=== PATIENT | male | born 1945 | race Caucasian/White ===

== ENCOUNTER 2018-05-25 08:46 | Inpatient (IN) | payer MEDICARE ==
--- NOTE | 2018-05-25 09:09 | ED ---
Shortness of Breath - HPI Summary HPI Summary: This pt is a 73 y/o male presenting to [facility] c/o SOB worsening since 3 days ago. reports the pt has been on multiple antibiotics since February 2018 for SOB, including Azithromycin, Doxycycline, and Bactrim. states pt was initially on antibiotics for bronchitis, then for sinus infection, and also for pneumonia. Pt reports he ran out of his antibiotics 1 week ago and finished his Prednisone 4 days ago. notes they have recently flown back from the [place] 3 days ago. Pt denies chest pain, fever, chills. PMHx: RA, HTN, BPH. His medications include Hydroxyzine, Metoprolol, Finasteride , Lisinopril. No hx of COPD. Pt is a former smoker, quit in 1990. - History of Current Complaint Chief Complaint: EDShortnessOfBreath Hx Obtained From: Patient, Family/Commercial [employer] - Onset/Duration: Lasting Days, Still Present Timing: Constant Current Severity: Moderate Dyspnea At: Rest Aggrevating Factors: Nothing Alleviating Factors: Oxygen Associated Signs & Symptoms: Negative - Allergy/Home Medications Allergies/Adverse Reactions: Allergies Allergy/AdvReac Type Severity Reaction Status Date / Time Penicillins Allergy Hives/Diff. Verified 05/25/18 08:55 Breathing/I tching PMH/Surg Hx/FS Hx/Imm Hx Endocrine/Hematology History: Denies: Hx Diabetes, Hx Thyroid Disease Cardiovascular History: Reports: Hx Hypertension Respiratory History: Denies: Hx Asthma, Hx Chronic Obstructive Pulmonary Disease (COPD) GI History: Denies: Hx Ulcer History: Reports: Hx Benign Prostatic Hyperplasia Musculoskeletal History: Reports: Hx Rheumatoid Arthritis - Surgical History Surgery Procedure, Year, and Place: Appendectomy. Pacer Infectious Disease History: No Infectious Disease History: Denies: Hx Hepatitis, Hx Human Immunodeficiency Virus (HIV), Traveled Outside the [place] in Last 30 Days - Family History Known Family History: Positive: Cardiac Disease - Social History Alcohol Use: Occasionally Substance Use Type: Reports: None Smoking Status (MU): Former Smoker Review of Systems Negative: Fever, Chills Negative: Chest Pain Positive: Shortness Of Breath Negative: Vomiting, Nausea All Other Systems Reviewed And Are Negative: Yes Physical Exam - Summary Physical Exam Summary: VITAL SIGNS: Reviewed. GENERAL: Patient is a well-developed and thin male who is noticeably short of breath. He is not able to speak in full sentences. HEAD AND FACE: Normocephalic EYES: PERRLA, EOMI x 2. EARS: Hearing grossly intact. MOUTH: Oropharynx within normal limits. NECK: Supple, trachea is midline, no adenopathy, no JVD, no carotid bruit. CHEST: Symmetric, no tenderness at palpation LUNGS: Clear to auscultation bilaterally. No wheezing or crackles. Patient is note able to speak in full sentences. CVS: Regular rate and rhythm, S1 and S2 present, no murmurs or gallops appreciated. ABDOMEN: Soft, non-tender. Bowel sounds are normal. No abdominal abnormal pulsations. EXTREMITIES: Full ROM in all major joints, no edema, no cyanosis or clubbing. NEURO: Alert and oriented x 3. No acute neurological deficits. Speech is normal and follows commands. SKIN: Dry and warm Triage Information Reviewed: Yes Vital Signs On Initial Exam: Initial Vitals Temp Pulse Resp BP Pulse Ox 98.2 F 62 22 132/62 89 05/25/18 08:50 05/25/18 08:50 05/25/18 08:50 05/25/18 08:50 05/25/18 08:50 Vital Signs Reviewed: Yes Diagnostics - Vital Signs Vital Signs Temp Pulse Resp BP Pulse Ox 05/25/18 08:50 98.2 F 62 22 132/62 89 - Laboratory Result Diagrams: 05/25/18 09:11 05/25/18 09:11 Lab Statement: Any lab studies that have been ordered have been reviewed, and results considered in the medical decision making process. - Radiology Chest XR Radiology Interpretation Completed By: Radiologist Summary of Radiographic Findings: IMPRESSION: Suggestion of a spiculated mass in the right upper lobe. This is new since previous exam of January 17, [address] of the chest is suggested for further evaluation. Chronic pleural changes are noted. Dr. Jeffers has reviewed this report. - CT Chest CTA CT Interpretation Completed By: Radiologist Summary of CT Findings: IMPRESSION: 1. No CT of evidence of pulmonary embolism. 2. There is a large denstiy in the lateral aspect of the right lower lobe measuring up to 3.6 x 7.9 cm in the axial plane in addition to multiple pulmonary nodules scattered throughout both lungs. Differential diagnosis includes neoplasm, inflammatory lung disease or multifocal septic emboli. Dr. Jeffers has reviewed this report. Dr. Jeffers has reviewed this report. - EKG 09:11 Cardiac Rate: NL - at 68 bpm EKG Comparison: No Significant Change - Similar to prior EKG on 01/22/09. Summary of EKG Findings: Atrial paced at [address] elevations. Re-Evaluation - Re-Evaluation First Eval Re-Evaluation Time: 11:11 Comment: Reviewed lab, CXR, and CTA results with pt and . Discussed admission plan. They understand and agree. Course/Dx - Course Assessment/Plan: This pt is a 73 y/o male presenting to [facility] c/o SOB worsening since 3 days ago. reports the pt has been on multiple antibiotics since February 2018 for SOB, including Azithromycin, Doxycycline, and Bactrim. states pt was initially on antibiotics for bronchitis, then for sinus infection , and also for pneumonia. Pt reports he ran out of his antibiotics 1 week ago and finished his Prednisone 4 days ago. notes they have recently flown back from the [place] 3 days ago. Pt denies chest pain, fever, chills. PMHx : RA, HTN, BPH. His medications include Hydroxyzine, Metoprolol, Finasteride, Lisinopril. No hx of COPD. Pt is a former smoker, quit in 1990. Blood work shows a wbcs of 9.7, hemoglobin 9.7 hematocrit of 29 and platelets are 150. The d-dimer is more than 1050. I suspect a PE since the patient had a recent flight from [place]. I did order a chest CTA. Anion gap is 8 to BUN is 49, troponin 0.19, CRP is 169, BNP is 243 influenza A and B is negative. CXR IMPRESSION: Suggestion of a spiculated mass in the right upper lobe. This is new since previous exam of January 17, [address] of the chest is suggested for further evaluation. Chronic pleural changes are noted. CTA chest IMPRESSION : 1. No CT of evidence of pulmonary embolism. 2. There is a large density in the lateral aspect of the right lower lobe measuring up to 3.6 x 7.9 cm in the axial plane in addition to multiple pulmonary nodules scattered throughout both lungs. Differential diagnosis includes neoplasm, inflammatory lung disease or multifocal septic emboli. At this time I discussed my physical exam, findings and test results with Dr. Jaramillo from the hospitalist services who accepted the patient for admission. - Diagnoses Provider Diagnoses: Dyspnea, Lung nodules, Elevated troponin - Physician Notifications Discussed Care of Patient With: Dariela Choi Time Discussed With Above Provider: 09:42 Instructed by Provider To: Other - Dr. Choi, radiologist, reports chest XR results. [11:18] Discussed the case with Dr. Jaramillo, hospitalist, who accepted the pt for admission. Discharge - Sign-Out/Discharge Documenting (check all that apply): Patient Departure - Admit to [facility] Patient Received Moderate/Deep Sedation with Procedure: No - Discharge Plan Condition: Stable Disposition: ADMITTED TO [facility] - Billing Disposition and Condition Condition: STABLE Disposition: Admitted to [facility] - Attestation Statements Document Initiated by Maru: Yes Documenting Scribe: January Cortes Provider For Whom Maru is Documenting (Include Credential): Mohit Jeffers MD Scribe Attestation: January Ferrer, scribed for Mohit Jeffers MD on 05/25/18 at 1838. Scribe Documentation Reviewed: Yes Provider Attestation: The documentation as recorded by the January bob accurately reflects the service I personally performed and the decisions made by Mohit pettit MD Status of Scribe Document: Viewed
[2018-05-25 09:25] LABS: ABS Basophils 0.1 10^3/ul (0-0.2); ABS Eosinophils 0.5 10^3/ul (0-0.6); ABS Lymphocytes 0.4 10^3/ul (1.0-4.8); ABS Monocytes 0.5 10^3/ul (0-0.8); ABS Neutrophils 8.2 10^3/ul (1.5-7.7); ABS Nucleated RBC 0 10^3/ul; Eosinophil % 5.3 %; Hematocrit 29 % (36-46); Hemoglobin 9.7 g/dL (14.0-18.0); Lymphocyte % 3.7 %; Mean Corpuscular HGB Conc 34 g/dL (31-36); Mean Corpuscular Hemoglobin 28 pg (27-31); Mean Corpuscular Volume 83 fL (80-94); Mean Platelet Volume 6.3 fL (7.4-10.4); Nucleated Red Blood Cells % 0; Platelet Count 150 10^3/uL (150-450); Red Blood Count 3.48 10^6 /uL (4.18-5.48); Red Cell Distribution Width 17 % (10.5-15); White Blood Count 9.7 10^3/uL (3.5-10.8)
[2018-05-25 09:41] LABS: Activated Partial Thrombo Time 25.1 seconds (26.0-36.3)
[2018-05-25 09:49] LABS: CKMB ng/mL 3.4 ng/mL (0.6-6.3); Troponin I 0.19 ng/mL (<0.04)
[2018-05-25 09:50] LABS: Albumin 2.7 g/dL (3.2-5.2); Albumin/Globulin Ratio 0.9 (1-3); BUN/Creatinine Ratio 23.3 (8-20); C Reactive Protein 169.3 mg/L (<8.01); Calcium 8.9 mg/dL (8.6-10.3); EGFR African American 37.6 (>60); EGFR Non-African American 31.1 (>60); Potassium 4.2 mmol/L (3.5-5.0); Total Protein 5.7 g/dL (6.4-8.9)
[2018-05-25 09:53] LABS: Influenza A Molecular NEGATIVE (Negative); Influenza B Molecular NEGATIVE (Negative)
[2018-05-25] MEDS ORDERED: Iodixanol* (CONTRAST) 320 MG/ML 100 ML SDV IV ONE (09:59)
[2018-05-25] MEDS ORDERED: NS 0.9% 1000 ML** 1,000 ML IV ONE (11:20)
[2018-05-25] MEDS ORDERED: methylPREDNISolone 125 MG* 2 ML VIAL IV ONE (12:28)
[2018-05-25] MEDS ORDERED: Albuterol/Ipratropium NEB.SOL* Albuterol 2.5 MG/Ipratropium 0.5 MG 3 ML INH PRN (12:30)
[2018-05-25] MEDS ORDERED: Acetaminophen TAB* 325 MG PO PRN (12:30)
[2018-05-25] MEDS ORDERED: Ondansetron INJ* 2 MG/ML VIAL IV PRN (12:30)
[2018-05-25 13:03] LABS: Troponin I 0.17 ng/mL (<0.04)
[2018-05-25 13:59] LABS: Urine Appearance Cloudy; Urine Bacteria Absent (Absent); Urine Bilirubin Negative (Negative); Urine Blood 2+ (Negative); Urine Color Yellow; Urine Glucose Negative (Negative); Urine Ketones Negative (Negative); Urine Nitrite Negative (Negative); Urine Protein Negative (Negative); Urine Red Blood Cell 2+(6-10/hpf) (Absent); Urine Specific Gravity 1.023 (1.010-1.030); Urine Squamous Epithelial Cell Present (Absent); Urine Urobilinogen Negative (Negative); Urine White Blood Cell 2+(11-20/hpf) (Absent)
--- NOTE | 2018-05-25 14:25 | HP ---
ADMISSION HISTORY AND PHYSICAL: DATE OF ADMISSION: 05/25/18. PRIMARY CARE PROVIDER: Tracy Dugan at the [facility]. HEALTHCARE PROXY: His . CODE STATUS: Full. SOURCE OF INFORMATION: History obtained from interview with the patient and his , review of past medical records. RELIABILITY: Very good. CHIEF COMPLAINT: Shortness of breath. HISTORY OF PRESENT ILLNESS: This 73-year-old man last time when normal was approximately January 2018, when he started to develop increased trouble breathing described as dyspnea on exertion with ambulation. At baseline, he could ambulate several miles, unlimited exercise tolerance. However, gradually started to increase dyspnea on exertion. He was in [place] at that time, he was diagnosed with sinusitis at a walk-in clinic, started on antibiotics, however, returned after 5 days with no improvement, prescribed a different antibiotic and steroids. He did experience some improvement with the steroids, however, after the completion, he again started to feel short of breath with exertion. The same pattern occurred over the ensuing 4 months, he received 4 courses of antibiotics and steroids and would have improvement with the combination and worsened with the discontinuation of the steroids ultimately to where his exercise tolerance became where he was able to ambulate a quarter to half a mile at baseline. In April, he saw his PCP after returning from [place] , was again prescribed antibiotics and prednisone for 10 days for a trip to the [place] and [place]. While there on a higher dose of steroids and antibiotics, he was able to ambulate for 2 or 3 hours per day, felt much improved. His appetite was good, however, 4 days to presentation when he returned, his steroid after his antibiotics and he gradually experienced worsening in his breathing and where he is now short of breath at rest. His T-max was 100 yesterday associated with aches and pains, poor appetite for approximately 1 month with nothing tasting good. Additionally over the last 3 to 4 days, he has had a hoarse voice. He has noted a headache over approximately 10 days which is new for him. He has never been a gentleman with the headaches. He has had occasional congestion and diarrhea which is chronic, but has been more severe over the last 3 weeks. He endorses night sweats that have been drenching for 3 weeks as well as weight loss approximately 5 to 6 pounds. Endorses a weight of 150 pounds in January. Because of increasing shortness of breath, no improvement and worsening to now dyspnea at rest, he presented to the emergency room. PAST MEDICAL HISTORY: Includes BPH, GERD, hypertension, rheumatoid arthritis for 25 years, erectile dysfunction, hyperlipidemia. He has had appendectomy, tonsillectomy, and he had a permanent pacemaker placed for recurrent same thing. MEDICATIONS: Home medications reviewed in the patient's list include: 1. Flomax 0.4 mg daily. 2. Omeprazole 20 mg daily. 3. Metoprolol succinate 25 mg daily. 4. Plaquenil 200 mg twice daily. 5. Avodart 0.5 mg daily. 6. Diclofenac 75 mg twice daily. ALLERGIES: To PENICILLIN. FAMILY HISTORY: Positive for CAD. SOCIAL HISTORY: He smoked for 20 years up to 2 packs per day, quit 30 years prior. Drinks approximately 2 drinks per week. 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 REVIEW OF SYSTEMS: As outlined above, otherwise all other systems negative. PHYSICAL EXAMINATION GENERAL: This 73-year-old male sitting up in bed, he is short of breath during our conversation. VITAL SIGNS: Vitals in emergency room blood pressure 124/76, heart rate 63, respiratory rate peaked at 22, 15 and it is minimum, he is 100% on 2 liters, T- max 98.2. HEENT: His oropharynx is clear. He has moist mucous membranes. Sclerae are anicteric. NECK: He has no supraclavicular, cervical or axillary lymphadenopathy. LUNGS: His lungs have rales in his right base up to approximately one-half. HEART: He has regular rate and rhythm. No murmurs, rubs or gallops. ABDOMEN: Soft, nontender, nondistended. EXTREMITIES: Warm and well perfused. He has less than 2-second capillary refill. NEURO: He is alert and oriented x3. His cranial nerves II through XII are intact. He has no apparent anxiety, agitation or depression. DIAGNOSTIC STUDIES/LAB DATA: Labs reviewed, notable for hemoglobin 9.7, MCV of 83, D-dimer greater than 1000, BUN 49, creatinine 2.1, troponin-I 0.19, CRP is 169, BNP is 243. Negative influenza A and B. Data reviewed, chest CTA, impression: No CT evidence of pulmonary embolism, however, there is a large density in the lateral aspect of the right lower lobe measuring up to 3.6 x 7.9 cm in the axial plane in addition to multiple pulmonary nodules scattered throughout both lungs. Differential includes neoplasm, inflammatory lung disease, and multifocal septic emboli. EKG is atrial paced, [place] beats have no ST or T-wave changes. ASSESSMENT AND PLAN: This is a 73-year-old man with past medical history including tobacco use, who does now have 4 months of progressive dyspnea on exertion to now having shortness of breath at rest with some intermittent relief with antibiotics for most prominently with steroids, found with abnormal CAT scan, acute renal failure and elevated troponin. 1. Hypoxic respiratory failure: Unclear etiology, does include malignancy, rheumatoid lung, septic emboli being less likely in the setting of no evidence of infection. Long courses of antibiotics for the last 4 months and improvement with steroids. Reach out to Dr. Thorpe to investigate opportunity to biopsy one of the lung nodules. I have also placed consultation for Dr. Kelly. Inhalers p.r.n., while awake for shortness of breath. Steroids for underlying inflammatory disorder if found appropriate, can recheck with Dr. Kelley for further assistance. 2. Elevated troponin: Check transthoracic echocardiogram, to continue troponin , serial EKG, start aspirin, suspect demand ischemia in the setting of underlying pulmonary source as well as decreased renal function. 3. Acute kidney injury in the setting of decreased p.o. intake. Fluids as given by the ER, continue. Order for additional 2 liters. 4. Contrast in the setting of renal failure, continue fluids as indicated above. The patient did receive contrast load, his clearance is around 30. 5. Headache in the setting of pulmonary nodules, check CT head. 6. Hypertension. Continue home medication. 7. Benign prostatic hypertrophy. Continue home medications. 8. DVT prophylaxis, heparin subcu ,transition to Lovenox when able, however, heparin in case he is capable of receiving a lung biopsy. [id number]/[facility] #: [id number] [facility]
--- NOTE | 2018-05-25 16:05 | ECHO ---
Patient: SRINIVASAN JC [facility] Rec#: [id number] : 1945 Date: 05/25/2018 Age: 73y Height: 170.18 cm / 67.0 in Weight: 77.11 kg / 170.0 lbs Sex: M BSA: 1.89 Room#: -19 Admit Date#: 05/25/2018 Type: Inpatient Referring: Derrell Jaramillo MD Reading: Alejandro Renner MD Housing Liaison: Marsha Dimas RDCS CC: ASHLEY TAMAYO CC: Mike Chambers MD Transthoracic Echocardiogram Indication: Shortness of breath BP: 124/76 HR: 70 Rhythm: Paced Findings History: RA, HTN, former smoker, HLD, pacer. Technical Comments: The study quality is fair. Completed at 1545. Left Ventricle: The left ventricular chamber size is mildly dilated. There is no left ventricular hypertrophy. Global left ventricular wall motion and contractility are within normal limits. Left ventricular systolic function is at the lower limits of normal. The estimated ejection fraction is 50-55%. There is abnormal ventricular septal wall motion consistent with right ventricular pacemaker. Abnormal left ventricular diastolic function is observed. Abnormal left ventricular diastolic filling is observed, consistent with impaired relaxation. Left Atrium: The left atrium is moderately dilated. Right Ventricle: Moderator Band present. The right ventricle is mildly dilated. The right ventricular global systolic function is normal. A pacemaker wire is visualized in the right ventricle. Right Atrium: The right atrium is mildly dilated. A pacemaker wire is visualized in the right atrium. Aortic Valve: The aortic valve is trileaflet. The aortic valve leaflets are mildly thickened. There is a trace of aortic regurgitation. There is no evidence of aortic stenosis. Mitral Valve: There is mitral annular calcification. The mitral valve leaflets are mildly thickened. There is mild to moderate mitral regurgitation. There is no evidence of mitral stenosis. Tricuspid Valve: The tricuspid valve leaflets are normal. There is mild to moderate tricuspid regurgitation. The right ventricular systolic pressure is estimated at 34 mmHg. There is evidence of borderline pulmonary hypertension. There is no tricuspid stenosis. Pulmonic Valve: The pulmonic valve appears normal. There is a trace pulmonic regurgitation. There is no pulmonic stenosis. Pericardium: There is no significant pericardial effusion. A pericardial fat pad is visualized. Aorta: There is no dilatation of the ascending aorta. There is no dilatation of the aortic arch. The aortic root is normal in size. Pulmonary Artery: The main pulmonary artery appears normal. Venous: The inferior vena cava appears normal in size. There is a greater than 50% respiratory change in the inferior vena cava dimension. Summary: There was not any prior study for comparison. Conclusions There is no left ventricular hypertrophy. Left ventricular systolic function is at the lower limits of normal. The estimated ejection fraction is 50-55%. There is abnormal ventricular septal wall motion consistent with right ventricular pacemaker. A pacemaker wire is visualized in the right ventricle. There is a trace of aortic regurgitation. There is no evidence of aortic stenosis. There is mild to moderate mitral regurgitation. There is mild to moderate tricuspid regurgitation. There is evidence of borderline pulmonary hypertension. There is no significant pericardial effusion. Measurements Name Value Normal Range RVIDd (AP) 2D 3.5 cm (0.9 - 2.6) RVDdMajor (2D) 4.6 cm (2.2 - 4.4) RAd ISD 4CH 4.6 cm (3.4 - 4.9) RA (A4C)W 4.9 cm (2.9 - 4.6) IVSd (2D) 1 cm (0.6 - 1) LVPWd (2D) 0.8 cm (0.6 - 1) LVIDd (2D) 5.5 cm (3.6 - 5.4) LVIDs (2D) 3.5 cm - LV FS (2D) 36 % (25 - 45) Aortic Annulus 2.2 cm (1.4 - 2.6) Ao root diameter (2D) 3.3 cm (2.1 - 3.5) Ascending Ao 3.1 cm (2.1 - 3.4) Aortic arch 2.6 cm (1.8 - 3.4) LA dimension (AP) 2D 3.8 cm (2.3 - 3.8) LAd ISD 4CH 5.5 cm (2.9 - 5.3) LA ISD 4CH W 4 cm (2.5 - 4.5) Name Value Normal Range LA ESV SP 4CH (A/L) 74 ml - LA ESV SP 2CH (A/L) 82 ml - LA ESV BP (A/L) 79 ml - LA ESV BP (A/L) index 42 ml/m2 - LA ESV SP 4CH (MOD) 66 ml - LA ESV SP 2CH (MOD) 78 ml - Name Value Normal Range MV E-wave Vmax 0.9 m/sec - MV deceleration time 181 msec - MV A-wave Vmax 1.2 m/sec - MV E:A ratio 0.8 ratio - LV septal e' Vmax 0.07 m/sec - LV lateral e' Vmax 0.1 m/sec - LV E:e' septal ratio 12.9 ratio - LV E:e' lateral ratio 9 ratio - Name Value Normal Range AV Vmax 1.7 m/sec - AV VTI 34 cm - AV peak gradient 11 mmHg - AV mean gradient 5 mmHg - LVOT Vmax 1.1 m/sec - LVOT VTI 23 cm - LVOT peak gradient 4 mmHg - LVOT mean gradient 2 mmHg - JO-ANN Vmax 0.9 m/sec - Name Value Normal Range TR Vmax 2.8 m/sec - TR peak gradient 31 mmHg - RAP 3 mmHg - RVSP 34 mmHg - IVC diameter 1.9 cm - Name Value Normal Range PV Vmax 0.96 m/sec - PV peak gradient 3.77 mmHg -
[2018-05-25 16:28] LABS: Troponin I 0.16 ng/mL (<0.04)
[2018-05-25] MEDS: Heparin VIAL(*) 5000 UNITS/ML VIAL (FIVE THOUSAND) SUBCUT SCH ×2 (19:22→21:19)
[2018-05-25] MEDS: Hydroxychloroquine TAB* 200 MG PO SCH (21:18)
[2018-05-25] MEDS: NS 0.9% 1000 ML** 1,000 ML IV SCH (21:29)
--- NOTE | 2018-05-25 21:49 | CONS ---
PULMONARY CONSULTATION REPORT: DATE OF CONSULT: 05/25/18 CONSULTATION REQUESTED BY: Dr. Derrell Jaramillo. REASON FOR CONSULTATION: Evaluation of abnormal CT chest. HISTORY OF PRESENT ILLNESS: The patient is a 73-year-old male with a history of GERD, BPH, hypertension, and rheumatoid arthritis for 25 years. The patient is also a former smoker, smoked for 20 years 2 packs a day and quit 30 years prior. 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 The patient was travelling, was in [place] recently. The patient was evaluated by primary care physician 2 times in the past 2 months for shortness of breath issues. Initially, he was diagnosed with sinusitis and was treated with antibiotics and prednisone with improvement in symptoms. Once he was tapered off the prednisone, his symptoms would recur. The patient presents for evaluation of worsening shortness of breath. The patient reports once he got off of his prednisone, his shortness of breath has started. The patient reports no cough. He denies fevers or chills. He has been having some night sweats. The patient has long-standing history of rheumatoid arthritis, has been treated with Plaquenil. The patient reports history of pulmonary nodules and rheumatoid activity in his lungs. The patient did not ever had biopsy of the pulmonary nodules. The patient also reports some arthritis symptoms recently. The patient has been tapered off a 10 -day course of prednisone last with return of symptoms. The patient was given nebulizers in the emergency room and was given a dose of steroid. The patient reports improvement in shortness of breath currently. The patient also reports headaches recently. He also reported occasional constipation and alternate diarrhea, which is chronic and has been more severe over the past 3 weeks. He has been having night sweats with drenching sweats in the 3 weeks prior with 5- to 6-pound weight loss. The patient reports a good appetite. The patient was travelling recently and was in [place] and [place] recently. He was found to have a T-max of 100 yesterday associated with aches and pains and poor appetite for a month that has improved in the past 4 days. The patient also reports hoarseness of voice. Denies any sinus issues in the past. PAST MEDICAL HISTORY: 1. BPH. 2. GERD. 3. Hypertension. 4. Rheumatoid arthritis for 25 years. 5. Erectile dysfunction. 6. Dyslipidemia. PAST SURGICAL HISTORY: Appendectomy, tonsillectomy, and pacemaker placement. MEDICATIONS: 1. Flomax. 2. Omeprazole. 3. Metoprolol. 4. Plaquenil. 5. Avodart. 6. Diclofenac. ALLERGIES: PENICILLIN. FAMILY HISTORY: CAD. SOCIAL HISTORY: Smoked for 20 years 2 packs per day, quit 30 years prior. Drinks 2 drinks per day. 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 REVIEW OF SYSTEMS: All systems reviewed as per HPI. PHYSICAL EXAM: The patient in bed, in no apparent distress. O2 sat 100% on 2 L of O2 through nasal cannula. He does appear to have hoarseness of voice and obvious dyspnea with long sentences. Vital Signs: Temperature 98.7, pulse 64 beats per minute, respiratory rate 15 per minute, O2 sat 94% on room air, blood pressure 122/69. HEENT: Pupils equal and reactive to light. Mucous membranes moist. Lungs: Diminished air entry bilaterally. No crackles or wheezes. Cardiovascular: S1, S2 present. Rate irregular. Abdomen: Soft, nontender, and nondistended. Bowel sounds present. Extremities: Normal range of motion. Skin : No rash or bruises. Neurologic: Alert, awake, oriented x3. No focal deficits. DIAGNOSTIC STUDIES/LAB DATA: WBC count 9.7, hemoglobin 9.7, hematocrit 29; platelet count of 150 with increased neutrophils. Sodium 137, potassium 4.2, chloride 108, bicarb 21, BUN 49, creatinine 2.1. The patient with chronic renal insufficiency. Last creatinine from June of 2017 was 1.20. His BUN in June was 34. BMP elevated at 243. Troponins were elevated and trending down. Lactic acid within normal limits. Rheumatoid factor elevated at 16. Last rheumatoid factor from 2013 was less than 15. Influenza A and B negative. Chest x-ray did not reveal any abnormalities in the left lung. Evidence of spiculated mass in the right lung. CT as described above in HPI. Abdominal and bladder ultrasound showed medical renal disease without any hydronephrosis, large bladder diverticulum and large post-void residual seen. Brain CT showed no acute abnormalities, mucosal thickening throughout the paranasal sinuses, and thickening in the hawk of maxillary sinus suggestive of possible chronic sinusitis. IMPRESSION AND RECOMMENDATIONS: 73-year-old male former smoker with history of long-standing rheumatoid arthritis admitted with worsening shortness of breath. The patient has been having episodes of recurrent shortness of breath recently. He does not have history of sinusitis in the past. He has been having sinus issues, which were treated with 3 courses of antibiotics. His symptoms would improve with antibiotics and prednisone, would recur again. He has been describing some chills, night sweats recently. The patient with airspace opacities and nodular opacities mostly in the right lung, also seen in the left lung. Prior CTs few years ago did not reveal those abnormalities. Differentials include rheumatoid activation in the lungs. I also have suspicion for possible Luna's given nodular opacities, sinusitis with chronic sinus changes and noted on the CT scan, and renal failure. The patient with significant improvement with prednisone definitely pointing towards possible inflammatory etiology. Less likely to be malignancy. He was already started on prednisone. If it is rheumatoid, it would improve, but if it is ANCA associated vasculitis, probably would need higher dose of steroids or immunosuppressive therapy with probably rituximab in the future. I have ordered ANCA and ALTON levels. Rheumatoid level mildly elevated. The patient with recent travel infectious etiology also in the differential, even though CT findings might not be indicative of that. He is on hydroxychloroquine, not on any other significant immuno-suppressive therapy at this time that I could be worrying about opportunistic infection. Definitely inflammatory etiology can explain the weight loss, night sweats, etc. In either ways, biopsy would be helpful. Would watch his clinical improvement and then may be repeated a chest x-ray in a day or two while awaiting biopsy to be scheduled and if the chest x- ray does suggest that there is improvement, then biopsy can be awaited on and followup scan would be done. Would also recommend consultation with Dr. Kelley. Thank you for allowing me to participate in the care of your patient. Will follow up with you. [id number]/[facility] #: [id number] ESTEPHANIE
[2018-05-26] MEDS: methylPREDNISolone SOD 40 MG* 1 ML VIAL IV SCH ×3 (05:59→22:53)
[2018-05-26] MEDS: NS 0.9% 1000 ML** 1,000 ML IV SCH (05:59)
[2018-05-26] MEDS: Heparin VIAL(*) 5000 UNITS/ML VIAL (FIVE THOUSAND) SUBCUT SCH ×3 (06:02→20:26)
[2018-05-26 08:02] LABS: ABS Basophils 0 10^3/ul (0-0.2); ABS Eosinophils 0 10^3/ul (0-0.6); ABS Lymphocytes 0.4 10^3/ul (1.0-4.8); ABS Monocytes 0.1 10^3/ul (0-0.8); ABS Neutrophils 10.9 10^3/ul (1.5-7.7); ABS Nucleated RBC 0 10^3/ul; Eosinophil % 0 %; Hematocrit 26 % (36-46); Hemoglobin 8.9 g/dL (14.0-18.0); Lymphocyte % 3.7 %; Mean Corpuscular HGB Conc 34 g/dL (31-36); Mean Corpuscular Hemoglobin 28 pg (27-31); Mean Corpuscular Volume 83 fL (80-94); Mean Platelet Volume 7.1 fL (7.4-10.4); Nucleated Red Blood Cells % 0; Platelet Count 141 10^3/uL (150-450); Red Blood Count 3.17 10^6 /uL (4.18-5.48); Red Cell Distribution Width 17 % (10.5-15); White Blood Count 11.5 10^3/uL (3.5-10.8)
[2018-05-26 08:18] LABS: BUN/Creatinine Ratio 24.3 (8-20); Calcium 8.3 mg/dL (8.6-10.3); EGFR African American 34.6 (>60); EGFR Non-African American 28.6 (>60); Magnesium 1.5 mg/dL (1.9-2.7); Potassium 4.2 mmol/L (3.5-5.0)
--- NOTE | 2018-05-26 08:31 | PN ---
Progress Note - Progress Note Date of Service: 05/26/18 - Pulm f/u note Note: Pt seen and examined at bedside. Pt reports feeling slightly better. He still feels winded with talking. Denies cough or sputum production. Denies chest pain , palpitations. Active Medications Generic Name Dose Route Start Last Admin Trade Name Freq PRN Reason Stop Dose Admin Acetaminophen 650 mg 05/25/18 12:30 Tylenol Tab* PO Q4H PRN FEVER/PAIN Albuterol/Ipratropium 1 neb 05/25/18 12:30 Duoneb (Albuterol 2.5 Mg/Ipratropium 0.5 Mg) INH [id number] AWAKE PRN sob/wheexing Aspirin 81 mg 05/26/18 09:00 Aspirin 81 Mg Chew Tab* PO DAILY MARTI Finasteride 5 mg 05/26/18 09:00 Proscar Tab* PO DAILY [facility] Protocol Heparin Sodium (Porcine) 5,000 units 05/25/18 14:00 05/26/18 06:02 Heparin Vial(*) SUBCUT 5,000 units Q8HR MARTI Administration Hydroxychloroquine Sulfate 200 mg 05/25/18 21:00 05/25/18 21:18 Plaquenil Tab* PO 200 mg BID MARTI Administration Sodium Chloride 1,000 mls @ 150 mls/hr 05/25/18 12:30 05/26/18 05:59 Ns 0.9% 1000 Ml IV 05/26/18 19:09 150 mls/hr PER RATE MARTI Administration Methylprednisolone Sodium Succinate 40 mg 05/26/18 07:00 05/26/18 05:59 Solu-Medrol 40 Mg IV 40 mg Q8H MARTI Administration Metoprolol Succinate 25 mg 05/26/18 09:00 Toprol Xl Tab* PO DAILY MARTI Ondansetron HCl 4 mg 05/25/18 12:30 Zofran Inj* IV Q4H PRN NAUSEA/VOMITING Pantoprazole Sodium 40 mg 05/26/18 09:00 Protonix Tab* PO DAILY MARTI Tamsulosin HCl 0.4 mg 05/26/18 09:00 Flomax Cap* PO DAILY [facility] Vital Signs Temp Pulse Resp BP Pulse Ox 97.3 F 56 16 123/56 100 05/26/18 07:09 05/26/18 07:09 05/26/18 07:09 05/26/18 07:09 05/26/18 07:09 O/E; Pt in NAD HEENT: PERRLA, no JVD Lungs: Dimnished air entry b/l, no wheeze CVS; S1, S2+ Abd: Soft, BS+ Ext: Normal ROM, no edema Skin: No rash Neuro: No focal deficits Laboratory Results - last 24 hr 05/25/18 05/25/18 05/25/18 09:03 09:11 09:11 WBC 9.7 RBC 3.48 L Hgb 9.7 L Hct 29 L MCV 83 MCH 28 MCHC 34 RDW 17 H Plt Count 150 MPV 6.3 L Neut % (Auto) 84.6 Lymph % (Auto) 3.7 [place] % (Auto) 5.4 Eos % (Auto) 5.3 Baso % (Auto) 1.0 Absolute Neuts (auto) 8.2 H Absolute Lymphs (auto) 0.4 L Absolute Monos (auto) 0.5 Absolute Eos (auto) 0.5 Absolute Basos (auto) 0.1 Absolute Nucleated RBC 0 Nucleated RBC % 0 APTT 25.1 L D-Dimer, Quantitative > 1050 H Sodium Potassium Chloride Carbon Dioxide Anion Gap BUN Creatinine Est GFR ( Amer) Est GFR (Non-Af Amer) BUN/Creatinine Ratio Glucose Lactic Acid Calcium Magnesium Total Bilirubin AST ALT Alkaline Phosphatase Total Creatine Kinase CK-MB (CK-2) Troponin I C-Reactive Protein B-Natriuretic Peptide Total Protein Albumin Globulin Albumin/Globulin Ratio Urine Color Yellow Urine Appearance Cloudy Urine pH 5.0 Ur Specific [place] 1.023 Urine Protein Negative Urine Ketones Negative Urine Blood 2+ A Urine Nitrate Negative Urine Bilirubin Negative Urine Urobilinogen Negative Ur Leukocyte Esterase 2+ A Urine WBC (Auto) 2+(11-20/hpf) A Urine RBC (Auto) 2+(6-10/hpf) A Ur Squamous Epith Cells Present A Urine Bacteria Absent Urine Glucose Negative Rheumatoid Factor Influenza A (Rapid) Influenza B (Rapid) 05/25/18 05/25/18 05/25/18 09:11 09:11 09:11 WBC RBC Hgb Hct MCV MCH MCHC RDW Plt Count MPV Neut % (Auto) Lymph % (Auto) [place] % (Auto) Eos % (Auto) Baso % (Auto) Absolute Neuts (auto) Absolute Lymphs (auto) Absolute Monos (auto) Absolute Eos (auto) Absolute Basos (auto) Absolute Nucleated RBC Nucleated RBC % APTT D-Dimer, Quantitative Sodium 137 Potassium 4.2 Chloride 108 Carbon Dioxide 21 L Anion Gap 8 BUN 49 H Creatinine 2.10 H Est GFR ( Amer) 37.6 Est GFR (Non-Af Amer) 31.1 BUN/Creatinine Ratio 23.3 H Glucose 112 H Lactic Acid 1.3 Calcium 8.9 Magnesium Total Bilirubin 1.00 AST 23 ALT 35 Alkaline Phosphatase 87 Total Creatine Kinase 55 CK-MB (CK-2) 3.4 Troponin I 0.19 H* C-Reactive Protein 169.30 H B-Natriuretic Peptide 243 H Total Protein 5.7 L Albumin 2.7 L Globulin 3.0 Albumin/Globulin Ratio 0.9 L Urine Color Urine Appearance Urine pH Ur Specific [place] Urine Protein Urine Ketones Urine Blood Urine Nitrate Urine Bilirubin Urine Urobilinogen Ur Leukocyte Esterase Urine WBC (Auto) Urine RBC (Auto) Ur Squamous Epith Cells Urine Bacteria Urine Glucose Rheumatoid Factor Influenza A (Rapid) Influenza B (Rapid) 05/25/18 05/25/18 05/25/18 09:40 12:34 15:55 WBC RBC Hgb Hct MCV MCH MCHC RDW Plt Count MPV Neut % (Auto) Lymph % (Auto) [place] % (Auto) Eos % (Auto) Baso % (Auto) Absolute Neuts (auto) Absolute Lymphs (auto) Absolute Monos (auto) Absolute Eos (auto) Absolute Basos (auto) Absolute Nucleated RBC Nucleated RBC % APTT D-Dimer, Quantitative Sodium Potassium Chloride Carbon Dioxide Anion Gap BUN Creatinine Est GFR ( Amer) Est GFR (Non-Af Amer) BUN/Creatinine Ratio Glucose Lactic Acid Calcium Magnesium Total Bilirubin AST ALT Alkaline Phosphatase Total Creatine Kinase CK-MB (CK-2) Troponin I 0.17 H* 0.16 H* C-Reactive Protein B-Natriuretic Peptide Total Protein Albumin Globulin Albumin/Globulin Ratio Urine Color Urine Appearance Urine pH Ur Specific [place] Urine Protein Urine Ketones Urine Blood Urine Nitrate Urine Bilirubin Urine Urobilinogen Ur Leukocyte Esterase Urine WBC (Auto) Urine RBC (Auto) Ur Squamous Epith Cells Urine Bacteria Urine Glucose Rheumatoid Factor Influenza A (Rapid) Negative Influenza B (Rapid) Negative 05/25/18 05/26/18 05/26/18 15:55 07:35 07:35 WBC 11.5 H RBC 3.17 L Hgb 8.9 L Hct 26 L MCV 83 MCH 28 MCHC 34 RDW 17 H Plt Count 141 L MPV 7.1 L Neut % (Auto) 95.0 Lymph % (Auto) 3.7 [place] % (Auto) 1.2 Eos % (Auto) 0 Baso % (Auto) 0.1 Absolute Neuts (auto) 10.9 H Absolute Lymphs (auto) 0.4 L Absolute Monos (auto) 0.1 Absolute Eos (auto) 0 Absolute Basos (auto) 0 Absolute Nucleated RBC 0 Nucleated RBC % 0 APTT D-Dimer, Quantitative Sodium 136 Potassium 4.2 Chloride 109 Carbon Dioxide 18 L Anion Gap 9 BUN 55 H Creatinine 2.26 H Est GFR ( Amer) 34.6 Est GFR (Non-Af Amer) 28.6 BUN/Creatinine Ratio 24.3 H Glucose 223 H Lactic Acid Calcium 8.3 L Magnesium 1.5 L Total Bilirubin AST ALT Alkaline Phosphatase Total Creatine Kinase CK-MB (CK-2) Troponin I C-Reactive Protein B-Natriuretic Peptide Total Protein Albumin Globulin Albumin/Globulin Ratio Urine Color Urine Appearance Urine pH Ur Specific [place] Urine Protein Urine Ketones Urine Blood Urine Nitrate Urine Bilirubin Urine Urobilinogen Ur Leukocyte Esterase Urine WBC (Auto) Urine RBC (Auto) Ur Squamous Epith Cells Urine Bacteria Urine Glucose Rheumatoid Factor 16 H Influenza A (Rapid) Influenza B (Rapid) I/R; 73 y o m, former smoker, with occupational exposures, long standing h/o RA on Plaquinel with recurrent bronchitis/sinus issues over the past 2 months that improve with steroids and been recuring since taper. Pt a/w worsening SOB, night sweats, low grade fever, wt loss, found to have nodular and large air space opacity in Rt lung- Inflammatory versus infectious versus neoplastic Pt also with mildly enlarged subcarinal node RA related pulm nodules high in differential. Also have suspicion for Wegners given nodular opacities and CT evidence of chronic sinusitis and Acute on chronic renal failure CTD w/u is pending Started having improvement in sx with steroids Had U/S for evaluation of accessibility of rt lung subpleural lesion for U/S guided biopsy To proceed with biopsy to evaluate for vasculitis versus inflammation related to RA Would also recommend cx from the biopsy tissue c/w current management Further recommendations pending biopsy
[2018-05-26] MEDS: Metoprolol Succinate XL TAB* 25 MG PO SCH ×2 (08:56→09:24)
[2018-05-26] MEDS: Aspirin 81 mg CHEW TAB* 81 MG TAB.CHEW PO SCH (08:56)
[2018-05-26] MEDS: Hydroxychloroquine TAB* 200 MG PO SCH ×2 (08:56→20:23)
[2018-05-26] MEDS: Finasteride TAB* 5 MG PO SCH (08:57)
[2018-05-26] MEDS: Pantoprazole TAB * 40 MG TAB PO SCH (08:57)
[2018-05-26] MEDS: Tamsulosin CAP* 0.4 MG PO SCH (08:58)
--- NOTE | 2018-05-26 14:25 | PN ---
Subjective Date of Service: 05/26/18 Interval History: Pt feels better today. Less SOB, not coughing. H/o sinus infection and purulent drainage as well as weight loss and progressive weakness x 3 months Objective Active Medications: Acetaminophen (Tylenol Tab*) 650 mg PO Q4H PRN PRN Reason: FEVER/PAIN Albuterol/Ipratropium (Duoneb (Albuterol 2.5 Mg/Ipratropium 0.5 Mg)) 1 neb INH [id number] AWAKE PRN PRN Reason: sob/wheexing Aspirin (Aspirin 81 Mg Chew Tab*) 81 mg PO DAILY [facility] Last Admin: 05/26/18 08:56 Dose: 81 mg Finasteride (Proscar Tab*) 5 mg PO DAILY [facility]; Protocol Last Admin: 05/26/18 08:57 Dose: 5 mg Heparin Sodium (Porcine) (Heparin Vial(*)) 5,000 units SUBCUT Q8HR [facility] Last Admin: 05/26/18 14:11 Dose: Not Given Hydroxychloroquine Sulfate (Plaquenil Tab*) 200 mg PO BID [facility] Last Admin: 05/26/18 08:56 Dose: 200 mg Sodium Chloride (Ns 0.9% 1000 Ml) 1,000 mls @ 150 mls/hr IV PER RATE MARTI Stop: 05/26/18 19:09 Last Admin: 05/26/18 05:59 Dose: 150 mls/hr Methylprednisolone Sodium Succinate (Solu-Medrol 40 Mg) 40 mg IV Q8H [facility] Last Admin: 05/26/18 05:59 Dose: 40 mg Ondansetron HCl (Zofran Inj*) 4 mg IV Q4H PRN PRN Reason: NAUSEA/VOMITING Pantoprazole Sodium (Protonix Tab*) 40 mg PO DAILY [facility] Last Admin: 05/26/18 08:57 Dose: 40 mg Tamsulosin HCl (Flomax Cap*) 0.4 mg PO DAILY [facility] Last Admin: 05/26/18 08:58 Dose: 0.4 mg Vital Signs - 8 hr 05/26/18 05/26/18 05/26/18 07:09 08:00 12:02 Temperature 97.3 F 97.9 F Pulse Rate 56 32 Respiratory 16 16 16 Rate Blood Pressure 123/56 132/67 (mmHg) O2 Sat by Pulse 100 100 Oximetry Oxygen Devices in Use Now: Nasal Cannula Appearance: 73 yo m in nAD, AAOx3 Eyes: No Scleral Icterus, PERRLA Ears/Nose/Mouth/Throat: NL Teeth, Lips, Gums, Mucous Membranes Moist Neck: NL Appearance and Movements; NL JVP, Trachea Midline Respiratory: Symmetrical Chest Expansion and Respiratory Effort, Clear to Auscultation Cardiovascular: NL Sounds; No Murmurs; No JVD, - - irregular Abdominal: NL Sounds; No Tenderness; No Distention, No Hepatosplenomegaly Lymphatic: No Cervical Adenopathy Extremities: No Edema Skin: No Rash or Ulcers, No Nodules or Sclerosis Neurological: Alert and Oriented x 3, NL Muscle Strength and Tone Result Diagrams: 05/26/18 07:35 05/26/18 07:35 Microbiology and Other Data: Microbiology 05/25/18 09:03 Urine Culture - Final Urine No Growth (<1,000 CFU/mL) 05/25/18 09:16 Aerobic Blood Culture - Preliminary Blood Venous No Growth Day 1 Anaerobic Blood Culture - Preliminary No Growth Day 1 05/25/18 09:11 Aerobic Blood Culture - Preliminary Blood Venous No Growth Day 1 Anaerobic Blood Culture - Preliminary No Growth Day 1 05/25/18 09:15 Influenza Types A,B Antigen - Final Nasopharyngeal Specimen received for Influenza A/B Molecular testing Assess/Plan/Problems-Billing Assessment: 73 yo M with h/o RA with recent URI and sinus infections x 3 months on 4 different antibiotics and steroid course presented with [facility] and was found to have pulmonary nodules - Patient Problems (1) Pulmonary nodules/lesions, multiple Comment: differential includes: RA lung, Luna's (h/o sinus problems), infection(bacterial or fungal) or malignancy appreciate DR. Kelly's consult.will cont steroids for now (CCP, ALTON, ANCA ordered) Dr. 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 Feliz and no Dexter was recommended. cont Flomax as at home (4) Troponin level elevated Comment: pt denies CP Echo shows EF 55%, mod MR and mod TR suspect demand ischemia (5) Normocytic anemia Comment: russ check iron studies (6) Rheumatoid arthritis Comment: cont Plaquenil for now DR. Kelley consulted (7) DVT prophylaxis Comment: HSQ Status and Disposition: inpatient
[2018-05-26 14:59] LABS: Activated Partial Thrombo Time 27.4 seconds (26.0-36.3); INR 1.17 (0.77-1.02)
[2018-05-26] MEDS ORDERED: NS 0.9% 1000 ML** 1,000 ML IV SCH (15:00)
[2018-05-26] MEDS ORDERED: Magnesium Sulfate IV* 3 GM in NS 0.9% 100 ML* 100 ML IVPB ONE (15:02)
[2018-05-26] MEDS ORDERED: Naloxone* 0.4 MG/ML 1 ML VIAL ONE (15:49)
[2018-05-26] MEDS ORDERED: fentaNYL* 50 MCG/ML 2 ML VIAL (100 MCG VIAL) ONE (15:49)
--- NOTE | 2018-05-26 18:51 | CONSULT ---
Consult Consult: Mr. 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 He was not symptomatic until recently, when he developed sinus and pulmonary symptoms, which were steroid responsive, with imaging studies revealing a spiculated mass with basilar infiltrate. My suspicion for microscopic polyangiitis is high baesd on his prior serologies , renal insufficiency and elevated inflammatory markers. However his sinus symptoms are new and his prior chest xray in 2016 revealed no acute pulmonary process. Agree with re checking serologies and performing a lung biopsy. If vasculitis is confirmed, consider Rituximab 375 meter per meter squared weekly for 4 weeks. Continue IV Solumedrol. I will check a PPD in anticipation of needing to provide this therapy. Will continue to follow; thanks
[2018-05-26] MEDS ORDERED: PPD test dose* 5 TU/0.1 ML TEST (*USE PPD ORDER SET*) INTRADERM ONE ×2 (19:30→20:00)
--- NOTE | 2018-05-26 21:50 | CONS ---
CONSULTATION REPORT: DATE OF CONSULT: 05/26/18 CHIEF COMPLAINT: Lung nodules. HISTORY OF PRESENT ILLNESS: Mr. Lopez is a well-known patient of our clinic who we have been seeing on a roughly yearly basis. He has a longstanding history of rheumatoid arthritis versus undifferentiated connective tissue disorder. He does have a known history of positive ANCA levels, although he has had no specific signs or symptoms to suggest granulomatosis with polyangiitis until recently. I last saw him in June 2017, at that time, he had been doing clinically well but his P-ANCA was positive and he had a baseline creatinine of 1.2 on 07/18/17. His reactive protein was 5.36 with a clear urinalysis on 07/18/17. He had been doing well until earlier part of this year and as noted above he does have a history of benign prostatic hypertrophy as well as reflux disease as well as a longstanding history of back pain, which required back surgery in the past. He is a former smoker as well. He recently noted the onset of symptoms while in [place] when he developed a significant sinus related symptoms, which were somewhat productive and noted by his with some productive purulence from the nose. He had been treated with antibiotics as well as steroids for repeated sinus infections but he also developed a cough as well too. He has noted that when he tapered out prednisone , his symptoms would reoccur. While he was on prednisone, his symptoms would improve. He did travel to [place] when he was on prednisone, again he noted that he felt fairly well, but when he tapered off that his symptoms got worse, and it was advised that given that he was requiring repeated doses of prednisone that he have a more extensive diagnostic evaluation. Therefore, when he came back to [place], he continued to have significant symptoms off of steroids and was admitted for abnormal imaging studies as well as his progressive symptoms. It was felt that he might have an underlying vasculitic disorder especially in light of his positive P- ANCA serology in the past, and indeed he had a lung biopsy today, the results of which are pending. In terms of his prior history of an inflammatory arthritis, he had previously been seen as long ago as [address] Nichols, his former city editor, who also noted that he had a positive ANCA and he had been following with the nurse practitioner until he more recently followed with me in 2016. In terms of his most recent symptoms, he has noted some mild cough which is not very productive and some increased joint symptoms recently as well as some numbness and tingling in the lower extremities. More specifically, he had tapered off 10-day course of prednisone last with some return of his symptoms. He was given nebulizers in the ER and a dose of steroids and he is noticing some improvement symptomatically, although he continues to have some mild arthralgias as well. He has also had some sinus related headaches but no significant GI symptoms except for occasional IBS type symptoms. He has also had some night sweats and he has also noted a significant weight loss over the last year. He does have, however, a good appetite. As noted above, he has been traveling and he was in the [place] and [place] recently. He has also had a low-grade fever and mild hoarseness of his voice. He had no significant sinus issues, however, in the past until recently. PAST MEDICAL HISTORY: Includes: 1. Hypertension. 2. Undifferentiated connective tissue disorder. 3. History of rheumatoid arthritis. 4. History of erectile dysfunction. 5. Dyslipidemia. 6. Prostate disorder, for which he is seeing Dr. Feliz. PAST SURGICAL HISTORY: Includes an appendectomy, tonsillectomy, and pacemaker placement. MEDICATIONS: As an outpatient include: 1. Flomax. 2. Omeprazole. 3. Metoprolol. 4. Plaquenil. 5. Avodart. 6. He had been on NSAIDs in the past but has recently stopped these given his renal insufficiency. Again, his serum creatinine is 1.2 in June 2017. ALLERGIES: Include PENICILLIN. FAMILY HISTORY: Notable for coronary artery disease. His father was due to unknown causes and his mother of cancer. Uncle had rheumatoid arthritis. SOCIAL HISTORY: He is a former smoker. He smoked for 20+ years, quit in 1990 and he is a former cigarette user but it has been a long time since he has been smoking at all. He only rarely consumes alcohol and he does try to stay active with his who I also spoke with today. He has also had colonoscopy in the past. He has had chronic stable anemia. REVIEW OF SYSTEMS: He denied any dehydration but he has had increased fatigue. Eyes: Denies discharge, dryness, or irritation. ENT: Denies difficulty swallowing. Cardiovascular: Denies chest wall pain. Respiratory: As noted above. Sinuses: As noted above. GI: Some mild alternating constipation and diarrhea. Musculoskeletal: He has had increased joint pain and stiffness in his knees as well as ankles and to a lesser extent his hands and trouble walking because of his symptoms. Skin: No new rash, but he has chronic venous stasis changes in the lower extremity. No recent nail changes. Neurologic: No focal weakness. Motor strength is otherwise well preserved. Other 14-point review of systems were reviewed and were otherwise negative. PHYSICAL EXAM: He was pleasant, sitting up in no acute distress. O2 sats 100% on 2 L of O2 on nasal cannula. He was slightly hard of hearing but he was able to converse and communicate appropriately. He had a temperature of 98.7, pulse of 68 beats per minute, respiratory rate of 18, O2 sats 94% on room air, blood pressure 122/70. HEENT: Pupils equal, round, and reactive to light and accommodate. Extraocular movements were intact. Mucous membranes are moist. Lungs reveal clear airways in the upper and lower ramirez, but he had diminished air entry in the basilar ramirez but no crackles or wheezes. Cardiovascular exam revealed a regular rate and rhythm. Normal S1, S2. No S3 or S4. Abdomen : Soft, nontender, and nondistended with normoactive bowel sounds. Extremities : No cyanosis, clubbing, or edema. Skin: No rashes. He had some mild venostasis changes or a birthmark in the left lower extremity, which was unchanged and no rash. Motor strength was 5/5 in the upper and lower extremities and he had no focal neurologic deficits. No evidence of any foot drop as he has good range of motion of his joints. On musculoskeletal exam, there was no synovitis of the joints. He had no significant lumbar restriction. Endocrine: No glandular swelling. Hematologic: No bruising or bleeding. Psychiatric: Pleasant. DIAGNOSTIC STUDIES/LAB DATA: On diagnostic evaluation, he had a white count of 9.7, hemoglobin of 9.7, hematocrit 29, he had a platelet count of 150,000 with increased neutrophils. Sodium of 137, BUN 49, creatinine 2.1. His BNP was elevated and troponins were elevated and trending down. Lactic acid was within normal limits. Rheumatoid factor elevated at 16. Influenza A and B were negative. Chest x-ray revealed spiculated mass in the right lung. He had an abdominal and bladder ultrasound showing medical renal disease without any hydronephrosis , large bladder diverticula, and postvoid residual was seen. Brain CT showed no acute abnormalities. He had mucosal thickening throughout the paranasal sinuses and thickening of the hawk of the maxillary sinus suggestive of possible chronic sinusitis. Otherwise, in terms of prior serologies in the past , he had a baseline serum creatinine that was 1.2 in June 2017 with a CRP at that time of 5.36 and a positive P-ANCA. His CRP has also been variably elevated in the past and he has also had variable anemia. In terms of his prior diagnostic studies in October 2015, his PR3 antibody was negative but his myeloperoxidase antibody was positive at 1.4. His cold agglutinin screen was negative and his vitamin D has normal protein levels with no abnormal protein level seen. ASSESSMENT AND PLAN: Mr. Lopez is a 73-year-old male with a longstanding history of progressive renal insufficiency, positive P-ANCA with myeloperoxidase antibody, elevated C-reactive protein with an inflammatory arthritis, now with worsening symptoms, specifically some sinus-related symptoms , night sweats, constitutional symptoms with imaging studies revealing a possible cavitating lung lesion. 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 I agree that a lung biopsy will be helpful in terms of ruling out an infectious type process, which seems less likely and a malignancy, which also seems unlikely. However, the serologies will also be helpful in determining the etiology of his symptoms. At this point in time, I agree with a trial of steroids and depending on his response, we could consider Solu- Medrol 60 mg every 8 hours. Depending on the biopsy results, consider initiation of rituximab 375 mg/m2 every week for 4 weeks, but first we will try to confirm it and rule out other conditions with his lung biopsy. I will check a QuantiFERON test at baseline and he will need baseline pneumococcal antibodies and Pneumovax for pneumonia protection once he is off high-dose steroids. I will continue to follow daily. [id number]/[facility] #: [id number] [facility] SHOREMargaret
[2018-05-26] MEDS: Carboxymethylcellulos 1% OPTH* 1 DROP AMP BOTH EYES PRN (23:08)
[2018-05-27 05:49] LABS: ABS Basophils 0 10^3/ul (0-0.2); ABS Eosinophils 0 10^3/ul (0-0.6); ABS Lymphocytes 0.4 10^3/ul (1.0-4.8); ABS Monocytes 0.2 10^3/ul (0-0.8); ABS Neutrophils 14.3 10^3/ul (1.5-7.7); ABS Nucleated RBC 0 10^3/ul; Eosinophil % 0 %; Hematocrit 26 % (36-46); Hemoglobin 8.4 g/dL (14.0-18.0); Lymphocyte % 2.9 %; Mean Corpuscular HGB Conc 33 g/dL (31-36); Mean Corpuscular Hemoglobin 27 pg (27-31); Mean Corpuscular Volume 83 fL (80-94); Mean Platelet Volume 7.4 fL (7.4-10.4); Nucleated Red Blood Cells % 0; Platelet Count 162 10^3/uL (150-450); Red Blood Count 3.07 10^6 /uL (4.18-5.48); Red Cell Distribution Width 17 % (10.5-15)
[2018-05-27 06:06] LABS: ALT 39 U/L (7-52); AST 24 U/L (13-39); Albumin 2.4 g/dL (3.2-5.2); Alkaline Phosphatase 76 U/L (34-104); BUN/Creatinine Ratio 29.8 (8-20); Blood Urea Nitrogen 64 mg/dL (6-24); CO2 Carbon Dioxide 18 mmol/L (22-32); Calcium 8.5 mg/dL (8.6-10.3); EGFR African American 36.6 (>60); EGFR Non-African American 30.3 (>60); Globulin 2.5 g/dL (2-4); Glucose 137 mg/dL (70-100); Magnesium 2.4 mg/dL (1.9-2.7); Sodium 135 mmol/L (135-145); Total Protein 4.9 g/dL (6.4-8.9)
[2018-05-27 06:07] LABS: % Iron Saturation 85 % (15-55); Iron 116 ug/dL (50-212); Total Iron Binding Capacity 136 mcg/dL (250-450); Transferrin 97 mg/dL (203-362)
[2018-05-27] MEDS: methylPREDNISolone SOD 40 MG* 1 ML VIAL IV SCH ×3 (06:08→23:16)
[2018-05-27] MEDS: Heparin VIAL(*) 5000 UNITS/ML VIAL (FIVE THOUSAND) SUBCUT SCH ×2 (06:08→14:42)
[2018-05-27 06:11] LABS: Anion Gap 5 mmol/L (2-11); Chloride 112 mmol/L (101-111)
[2018-05-27 06:27] LABS: Ferritin 1149.1 ng/mL (24-336)
[2018-05-27 06:31] LABS: Folate 4.99 ng/mL (>3.99)
[2018-05-27] MEDS: Pantoprazole TAB * 40 MG TAB PO SCH (07:58)
[2018-05-27] MEDS: Hydroxychloroquine TAB* 200 MG PO SCH ×2 (07:58→20:09)
[2018-05-27] MEDS: Aspirin 81 mg CHEW TAB* 81 MG TAB.CHEW PO SCH (07:59)
[2018-05-27] MEDS: Finasteride TAB* 5 MG PO SCH (07:59)
[2018-05-27] MEDS: Tamsulosin CAP* 0.4 MG PO SCH (07:59)
--- NOTE | 2018-05-27 12:48 | PN ---
Subjective Date of Service: 05/27/18 Interval History: Pt feels well, off 02, no SOB, no cough Objective Active Medications: Acetaminophen (Tylenol Tab*) 650 mg PO Q4H PRN PRN Reason: FEVER/PAIN Albuterol/Ipratropium (Duoneb (Albuterol 2.5 Mg/Ipratropium 0.5 Mg)) 1 neb INH [id number] AWAKE PRN PRN Reason: sob/wheexing Aspirin (Aspirin 81 Mg Chew Tab*) 81 mg PO DAILY [facility] Last Admin: 05/27/18 07:59 Dose: 81 mg Carboxymethylcellulose Sodium (Celluvisc 1% Opth*) 1 drop BOTH EYES Q4H PRN PRN Reason: dry eyes Last Admin: 05/26/18 23:08 Dose: 1 drp Finasteride (Proscar Tab*) 5 mg PO DAILY [facility]; Protocol Last Admin: 05/27/18 07:59 Dose: 5 mg Heparin Sodium (Porcine) (Heparin Vial(*)) 5,000 units SUBCUT Q8HR [facility] Last Admin: 05/27/18 06:08 Dose: 5,000 units Hydroxychloroquine Sulfate (Plaquenil Tab*) 200 mg PO BID [facility] Last Admin: 05/27/18 07:58 Dose: 200 mg Methylprednisolone Sodium Succinate (Solu-Medrol 40 Mg) 40 mg IV Q8H [facility] Last Admin: 05/27/18 06:08 Dose: 40 mg Ondansetron HCl (Zofran Inj*) 4 mg IV Q4H PRN PRN Reason: NAUSEA/VOMITING Pantoprazole Sodium (Protonix Tab*) 40 mg PO DAILY [facility] Last Admin: 05/27/18 07:58 Dose: 40 mg Tamsulosin HCl (Flomax Cap*) 0.4 mg PO DAILY [facility] Last Admin: 05/27/18 07:59 Dose: 0.4 mg Vital Signs - 8 hr 05/27/18 05/27/18 05/27/18 07:10 07:13 11:00 Temperature 97.1 F 97.3 F Pulse Rate 57 60 Respiratory 16 16 16 Rate Blood Pressure 127/65 137/60 (mmHg) O2 Sat by Pulse 100 100 Oximetry Oxygen Devices in Use Now: Nasal Cannula Appearance: 73 yo M in nAD, aAOx3 Eyes: No Scleral Icterus, PERRLA Ears/Nose/Mouth/Throat: NL Teeth, Lips, Gums, Mucous Membranes Moist Neck: NL Appearance and Movements; NL JVP, Trachea Midline Respiratory: Symmetrical Chest Expansion and Respiratory Effort, Clear to Auscultation Cardiovascular: NL Sounds; No Murmurs; No JVD, RRR Abdominal: NL Sounds; No Tenderness; No Distention Lymphatic: No Cervical Adenopathy Extremities: No Edema, No Clubbing, Cyanosis Skin: No Rash or Ulcers, No Nodules or Sclerosis Neurological: Alert and Oriented x 3, NL Muscle Strength and Tone Result Diagrams: 05/27/18 05:14 05/27/18 05:14 Microbiology and Other Data: Microbiology 05/25/18 09:03 Urine Culture - Final Urine No Growth (<1,000 CFU/mL) 05/25/18 09:16 Aerobic Blood Culture - Preliminary Blood Venous No Growth Day 1 Anaerobic Blood Culture - Preliminary No Growth Day 1 05/25/18 09:11 Aerobic Blood Culture - Preliminary Blood Venous No Growth Day 1 Anaerobic Blood Culture - Preliminary No Growth Day 1 05/25/18 09:15 Influenza Types A,B Antigen - Final Nasopharyngeal Specimen received for Influenza A/B Molecular testing Assess/Plan/Problems-Billing Assessment: 73 yo M with h/o RA with recent URI and sinus infections x 3 months on 4 different antibiotics and steroid course presented with [facility] and was found to have pulmonary nodules - Patient Problems (1) Pulmonary nodules/lesions, multiple Comment: differential includes: RA lung, Luna's (h/o sinus problems), infection(bacterial or fungal) or malignancy appreciate DR. Kelly's consult.will cont steroids for now (CCP, ALTON, ANCA ordered) Appreciate Dr. Kelley's consult Needle bx of lung on 05/26/18-results pending. (2) Bradycardia Comment: Pt's sdc teacher is Dr. Chambers Pt is in sinus arrythmia and intermittently paced due to slow HR lopressor held (3) MATT (acute kidney injury) Comment: on CKD(baseline creat 1.2)-suspect prerenal, cont IVF UA shows no casts to suggest GN Post void residual of approx 300 ml is chronic as per Dr. Feliz and no Dexter was recommended. cont Flomax as at home (4) Troponin level elevated Comment: pt denies CP Echo shows EF 55%, mod MR and mod TR suspect demand ischemia (5) Normocytic anemia Comment: iron studies suggestive of ACD (6) Rheumatoid arthritis Comment: cont Plaquenil for now DR. Kelley consulted (7) DVT prophylaxis Comment: HSQ Status and Disposition: inpatient
--- NOTE | 2018-05-27 13:55 | CONS ---
CC: Dr. Kelley; Tracy Dugan at the [facility]* NEPHROLOGY CONSULTATION: DATE OF CONSULT: 05/27/18. HISTORY OF PRESENT ILLNESS: Mr. Lopez is a 73-year-old gentleman with a long history of rheumatoid arthritis. He had been noticing worsening dyspnea on exertion. While he was in [place], he developed an episode of sinusitis. He was treated with antibiotics and steroids and he felt considerably better, although his shortness of breath on exertion did not change. He then had recurrence of this pattern and he was again treated with corticosteroids and antibiotics and in all, he had 4 courses of this. He presented on this occasion with worsening of shortness of breath and he was admitted to the hospital where he was found to have worsening renal function. He has been having some night sweats recently. He had been having some anorexia, which improved significantly while he was on steroids. He had a cough, which was not productive. There was no hemoptysis. He has had joint swelling, but he has not had any significant edema. PAST MEDICAL HISTORY: His previous medical history is significant for benign prostatic hypertrophy, gastroesophageal reflux disease, hypertension, erectile dysfunction and hyperlipidemia. He is status post an appendectomy and a tonsillectomy. He has had a pacemaker placed. MEDICATIONS: His outpatient medications included: 1. Flomax 40 mg daily. 2. Omeprazole 20 mg daily. 3. Metoprolol succinate 25 mg daily. 4. Plaquenil 200 mg twice a day. 5. Avodart 0.5 mg daily. 6. Diclofenac 75 mg daily. ALLERGIES: He is allergic to PENICILLIN. 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 He has a previous smoking history. REVIEW OF SYSTEMS: No visual disturbances. No swallowing difficulties. No chest pain. 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 There have been no other skin rashes. No nausea, vomiting, or diarrhea. No dysuria, frequency, or urgency. PHYSICAL EXAMINATION: He is a well-developed, well-nourished white gentleman, who appears to be quite comfortable. He was afebrile. His blood pressure is 137/60 with a pulse of 60, respirations were 16. HEENT: He is anicteric. His extraocular muscles are intact. His mucous membranes are moist. There is no jugular venous distention. His chest was clear to me. The heart revealed a regular rhythm. I did not hear any murmurs. The abdomen is soft and nontender. Bones, joints, extremities revealed no cyanosis, clubbing, or edema. There were known significant nail bed signs. DIAGNOSTIC STUDIES/LAB DATA: A review of his laboratory values reveals a white count of 15.0, hemoglobin of 8.4, hematocrit of 26, platelet count of 162,000. Sodium 135, potassium 5.0, total CO2 of 18, chloride 112 and BUN 64 with a creatinine of 2.51, it was 2.1 on admission and his baseline creatinine in 2018 was 1.47. Calcium is 8.5 with an albumin of 2.4. Urinalysis reveals 2+ blood, 2+ esterase, 2+ wbc's, 2+ rbc's. In the past, he has had a positive pANCA with a positive myeloperoxidase. His chest x-ray revealed some pulmonary nodules and he has had biopsy of one of these nodules. IMPRESSION: 1. Chronic renal insufficiency, probably exacerbated by the use of diclofenac and x-ray contrast agents on his recent CT scan. 2. 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 This of course will need to be confirmed by biopsy and hopefully the pulmonary biopsy will do that. 3. Rheumatoid arthritis. 4. Metabolic acidosis secondary to his renal insufficiency. 5. Benign prostatic hypertrophy. 6. Status post pacemaker placement. At the present time, I think we should await his lung biopsy before deciding how to proceed. Dr. Kelley recommends that we proceed on to rituximab if that is positive and I think that is a very reasonable recommendation. If his lung biopsy is negative, then I think a renal biopsy would be an order. I will be discussing the case with Dr. Uribe and Dr. Kelley. [id number]/[facility] #: [id number] [facility]OSPITALMargaret
[2018-05-27] MEDS: Carboxymethylcellulos 1% OPTH* 1 DROP AMP BOTH EYES PRN ×2 (16:25→20:09)
--- NOTE | 2018-05-27 18:22 | PN ---
Subjective - Subjective Date of Service: 05/27/18 - chief complaint: sinusitis History: Overall Mr. Lopez is feeling much better today. He is breathing well and has no sinus complaints. Denied joint pain or rash. 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 Pt is in sinus arrythmia and intermittently paced due to slow HR lopressor held DVT prophylaxis (Acute) [id number] HSQ Normocytic anemia (Acute) D64.9 iron studies suggestive of ACD Pulmonary nodules/lesions, multiple (Acute) R91.8 differential includes: RA lung, Luna's (h/o sinus problems), infection( bacterial or fungal) or malignancy Rheumatoid arthritis (Acute) M06.9 cont Plaquenil for now RF is slightly elevated Troponin level elevated (Acute) R74.8 pt denies CP Echo shows EF 55%, mod MR and mod TR suspect demand ischemia Current Medications: Current Medications Acetaminophen (Tylenol Tab*) 650 mg PO Q4H PRN PRN Reason: FEVER/PAIN Albuterol/Ipratropium (Duoneb (Albuterol 2.5 Mg/Ipratropium 0.5 Mg)) 1 neb INH [id number] AWAKE PRN PRN Reason: sob/wheexing Carboxymethylcellulose Sodium (Celluvisc 1% Opth*) 1 drop BOTH EYES Q4H PRN PRN Reason: dry eyes Last Admin: 05/27/18 16:25 Dose: 2 drp Finasteride (Proscar Tab*) 5 mg PO DAILY [facility]; Protocol Last Admin: 05/27/18 07:59 Dose: 5 mg Hydroxychloroquine Sulfate (Plaquenil Tab*) 200 mg PO BID [facility] Last Admin: 05/27/18 07:58 Dose: 200 mg Methylprednisolone Sodium Succinate (Solu-Medrol 40 Mg) 40 mg IV Q8H [facility] Last Admin: 05/27/18 14:46 Dose: 40 mg Ondansetron HCl (Zofran Inj*) 4 mg IV Q4H PRN PRN Reason: NAUSEA/VOMITING Pantoprazole Sodium (Protonix Tab*) 40 mg PO DAILY [facility] Last Admin: 05/27/18 07:58 Dose: 40 mg Tamsulosin HCl (Flomax Cap*) 0.4 mg PO DAILY [facility] Last Admin: 05/27/18 07:59 Dose: 0.4 mg - Review of Systems Constitutional Symptoms: No: Weight Gain, Weight Loss, Weakness, Fever, Unexplained Falls Dermatology: Normal: Yes HEENT: Yes Normal Eyes: Positive: Normal Thyroid: Positive: Normal Pulmonary: Positive: Normal Cardiology: Positive: Normal Gastroenterology: Positive: Normal Musculoskeletal: Positive: Joint Stiffness Hematologic/Lymphatic: Positive: Anemia Psychiatry: Positive: Normal Allergic/Immunologic: Positive: Immunocompromise Home Medications: Home Medications Medication Instructions Recorded Confirmed Type Diclofenac Sodium [Diclofenac 75 mg PO BID 08/26/13 05/25/[address]] Hydroxychloroquine TAB* [Plaquenil 200 mg PO BID 08/26/13 05/25/18 History TAB*] Metoprolol Succinate [Metoprolol 25 mg PO DAILY 08/26/13 05/25/18 History Succinate ER] Tamsulosin HCl [Flomax] 0.4 mg PO DAILY 08/26/13 05/25/18 History Dutasteride [Avodart] 0.5 mg PO DAILY 10/13/14 05/25/18 History Omeprazole CAP (NF) [PriLOSEC CAP*] 20 mg PO DAILY 10/13/14 05/25/18 History Allergies: Allergies Allergy/AdvReac Type Severity Reaction Status Date / Time Penicillins Allergy Hives/Diff. Verified 05/25/18 08:55 Breathing/I tching Objective - Vital Signs Vital Signs: Vital Signs 05/26/18 05/26/18 05/26/18 19:56 20:00 23:15 Temperature 97.6 F 97.4 F Pulse Rate 74 60 Respiratory 22 16 16 Rate Blood Pressure 122/55 116/56 (mmHg) O2 Sat by Pulse 99 99 Oximetry 05/27/18 05/27/18 05/27/18 03:12 03:15 07:10 Temperature 97.5 F 97.5 F Pulse Rate 70 69 Respiratory 16 16 16 Rate Blood Pressure 119/59 119/59 (mmHg) O2 Sat by Pulse 99 99 Oximetry 05/27/18 05/27/18 05/27/18 07:13 11:00 16:10 Temperature 97.1 F 97.3 F 97.5 F Pulse Rate 57 60 65 Respiratory 16 16 20 Rate Blood Pressure 127/65 137/60 137/70 (mmHg) O2 Sat by Pulse 100 100 100 Oximetry 05/27/18 16:44 Temperature 97.5 F Pulse Rate 65 Respiratory 20 Rate Blood Pressure 137/70 (mmHg) O2 Sat by Pulse 100 Oximetry - Intake and Output Intake and Output: Intake & Output 05/25/18 05/26/18 05/27/18 05/28/18 06:59 06:59 06:59 06:59 Intake Total 2500 2228 1190 Output Total 0 0 Balance 2500 2228 1190 Weight 150 lb 6.4 oz Intake: IV Fluids 2000 104 390 NS (0.9%) 1000 390 magnesium 104 IVPB 954 NS (0.9%) 954 Oral 500 1170 800 Output: Urine 0 0 ADLs: Meal Record Start: 05/25/18 15: 52 Freq: DAILY@0900,1400,1800 Status: Active Protocol: Created 05/25/18 15:52 System (Rec: 05/25/18 15:52 System [id number]) Document 05/25/18 18:00 [id number] (Rec: 05/25/18 19:21 [id number] TELE-C11) Document 05/26/18 09:00 [id number] (Rec: 05/26/18 09:13 [id number] TELE-C08) Document 05/26/18 14:00 [id number] (Rec: 05/26/18 14:54 [id number] TELE-C03) Document 05/26/18 18:00 [id number] (Rec: 05/26/18 18:40 [id number] HOSP-C11) Document 05/27/18 09:00 [id number] (Rec: 05/27/18 15:12 [id number] TELE-C01) Document 05/27/18 14:00 [id number] (Rec: 05/27/18 15:14 [id number] TELE-C01) Document 05/27/18 17:28 [id number] (Rec: 05/27/18 17:28 [id number] TELE-C10) Document 05/27/18 18:12 [id number] (Rec: 05/27/18 18:12 [id number] TELE-C11) Intake and Output Start: 05/25/18 08: 54 Freq: Status: Active Protocol: Created 05/25/18 08:54 System (Rec: 05/25/18 08:54 System [id number]) Intake and Output Start: 05/25/18 15: 52 Freq: DAILY@0600,1400,2200 Status: Active Protocol: Created 05/25/18 15:52 System (Rec: 05/25/18 15:52 System TELE-M15) Document 05/25/18 22:00 [id number] (Rec: 05/25/18 22:36 [id number] TELE-C10) Document 05/26/18 05:13 [id number] (Rec: 05/26/18 05:13 [id number] TELE-C10) Document 05/26/18 14:00 [id number] (Rec: 05/26/18 14:54 [id number] TELE-C03) Document 05/26/18 22:00 [id number] (Rec: 05/26/18 22:18 [id number] TELE-C11) Document 05/27/18 06:00 [id number] (Rec: 05/27/18 06:05 [id number] TELE-C34) Document 05/27/18 10:02 [id number] (Rec: 05/27/18 10:02 [id number] TELE-C11) Document 05/27/18 14:00 [id number] (Rec: 05/27/18 15:14 [id number] TELE-C01) - Physical Exam General Physical Exam Comment: No acute distress; sitting up Eye Exam: bilateral: PERRLA Head: Yes Normocephalic Ear Exam: bilateral ear: Normal Sinuses: Non-tender Maxillary Sinus Thyroid Function: Clinically Euthyroid Lungs and Chest: Yes: Chest Expansion Full, Chest Expansion Symetrica, Percussion Note Resonant Heart Rate and Rhythm: Regular JVP: Not Elevated [place] Beat: Non Displaced Additional Cardiovascular: Yes: [place] Beat not Displaced, Normal Heart Sounds Breast: Normal Abdominal Exam: Yes: Soft - Extremities Limbs: Normal Power - Neuro Psychiatric: Normal Speech: Normal Results - Results Lab Results: Laboratory Results - last 24 hr 05/27/18 05/27/18 05:14 05:14 WBC 15.0 H RBC 3.07 L Hgb 8.4 L Hct 26 L MCV 83 MCH 27 MCHC 33 RDW 17 H Plt Count 162 MPV 7.4 Neut % (Auto) 95.7 Lymph % (Auto) 2.9 [place] % (Auto) 1.4 Eos % (Auto) 0 Baso % (Auto) 0 Absolute Neuts (auto) 14.3 H Absolute Lymphs (auto) 0.4 L Absolute Monos (auto) 0.2 Absolute Eos (auto) 0 Absolute Basos (auto) 0 Absolute Nucleated RBC 0 Nucleated RBC % 0 Sodium 135 Potassium 5.0 Chloride 112 H Carbon Dioxide 18 L Anion Gap 5 BUN 64 H Creatinine 2.15 H Est GFR ( Amer) 36.6 Est GFR (Non-Af Amer) 30.3 BUN/Creatinine Ratio 29.8 H Glucose 137 H Calcium 8.5 L Magnesium 2.4 Iron 116 TIBC 136 L % Saturation 85 H Unsat Iron Binding < 121 Transferrin 97 L Ferritin 1149.1 H Total Bilirubin 0.30 AST 24 ALT 39 Alkaline Phosphatase 76 Total Protein 4.9 L Albumin 2.4 L Globulin 2.5 Albumin/Globulin Ratio 1.0 Vitamin B12 519 Folate 4.99 Assessment - Problem List Assessment: Patient Problems MATT (acute kidney injury) (Acute) Bradycardia (Acute) DVT prophylaxis (Acute) Normocytic anemia (Acute) Pulmonary nodules/lesions, multiple (Acute) Rheumatoid arthritis (Acute) Troponin level elevated (Acute) Plan: 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 Serologies however are pending. Also the lung specimen was not diagnostic for vasculitis but it did show some chronic inflammatory cells. I discussed case at length with Dr. Uribe and Dr. 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 Therefore, as it is difficult to get a sinus biopsy and generally the tissue is not adequate, I think that it would be reasonable to get a renal biopsy. I understand this is being scheduled. During this time, as he is much improved, consider switching his steroids to an oral form of Prednisone 60mg daily. He will need A PPI for GI protection. He will need a PPD interpretation before getting cytotoxic therapy. Coordination of Care: Yes - with Dr. Blankenship and Dr. Uribe
[2018-05-28] MEDS: Hydroxychloroquine TAB* 200 MG PO SCH (08:59)
[2018-05-28] MEDS: Finasteride TAB* 5 MG PO SCH (08:59)
[2018-05-28] MEDS: methylPREDNISolone SOD 40 MG* 1 ML VIAL IV SCH (08:59)
[2018-05-28] MEDS: Tamsulosin CAP* 0.4 MG PO SCH (09:00)
[2018-05-28] MEDS: Pantoprazole TAB * 40 MG TAB PO SCH (09:00)
[2018-05-28 10:18] LABS: BUN/Creatinine Ratio 32.7 (8-20); Calcium 8.7 mg/dL (8.6-10.3); EGFR African American 35.1 (>60); Potassium 4.9 mmol/L (3.5-5.0)
[2018-05-28 12:47] VITALS: BP 155/98
[2018-05-28 13:58] LABS: Cytomegalovirus IgG Antibody Negative (Negative)
[2018-05-28 15:17] LABS: C-ANCA Negative (Negative)
--- NOTE | 2018-05-28 15:36 | DS ---
CC: Tracy Dugan NP; Dr. Kelley, Rheumatology; Missy Boland NP, Rheumatology; Dr. Blankenship; Dr. Chambers, Cardiology; Dr. Falcon; Dr. Feliz DISCHARGE SUMMARY: DATE OF ADMISSION: 05/25/18 DATE OF DISCHARGE: 05/28/18 PRIMARY CARE PROVIDER: Tracy Dugan NP DISCHARGE DIAGNOSIS: Acute hypoxemic respiratory failure that resolved in a patient who had newly diagnosed pulmonary nodules and acute kidney injury likely related to vasculitis. SECONDARY DIAGNOSES: 1. History of rheumatoid arthritis. 2. History of chronic kidney disease, stage 3, prior to the patient's hospital stay, currently the patient's creatinine is at 2.2. 3. History of gastroesophageal reflux disease. 4. Hypertension. 5. Benign prostatic hyperplasia. 6. Erectile dysfunction. 7. Dyslipidemia. 8. Status post appendectomy and tonsillectomy. 9. Status post pacemaker placement. MEDICATIONS AT DISCHARGE: Include: 1. Norvasc 5 mg daily, which is new. 2. Prednisone 60 mg daily, which is new. Remaining medications that are unchanged include: 1. Plaquenil 200 mg b.i.d. 2. Prilosec 40 mg daily, which is an increased dose. 3. Flomax 0.4 mg daily. 4.Avodart 0.5 mg daily Medications that were discontinued were: 1. Metoprolol. 2. Lisinopril. 3. Diclofenac. CONSULTATIONS DURING THE HOSPITAL STAY: Included Dr. Blankenship from Nephrology; Dr. Kelley, Rheumatology. PROCEDURES PERFORMED DURING THE HOSPITAL STAY: Included right lung biopsy obtained by Dr. Thorpe on 05/26/18. It was a needle aspiration with cytology showing "mixed chronic inflammatory elements and benign cells." STUDIES PERFORMED DURING THE HOSPITAL STAY: Included: CT angiogram of the chest obtained on 05/25/18, impression: "No CT evidence of PE. There is large density of the lateral aspect of the right lower lobe measuring up to 3.6 x 7.9 cm in the axial plane in addition to multiple pulmonary nodules scattered throughout both lungs. The differential diagnosis includes neoplasm, inflammatory lung disease, or multifocal septic emboli." Abdominal and bladder ultrasound obtained on 05/25/18, impression: "The kidneys are increased in echogenicity consistent with medical renal disease. There is no hydronephrosis. 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 Large postvoid residual of 332 mL." Chest x-ray obtained on 05/26/18, impression: "No evidence of pneumothorax. Right lung nodule and right basilar infiltrate." LABORATORY DATA PERFORMED DURING THE HOSPITAL STAY: On 05/27/18, white count of 15.0, hemoglobin of 8.4, hematocrit of 26, and platelets of 162. D-dimer was above 1050 at admission. INR was 1.17 on 05/26/18. On 05/28/18, sodium of 137, potassium 4.9, chloride 112, carbon dioxide 18, BUN 73, creatinine 2.23. The patient's iron studies showed iron level of 116, TIBC of 136, iron saturation was 85, transferrin of 97, ferritin of 1149. The patient's troponins during the patient's hospital stay ranged from 0.19 to 0.16. Brain natriuretic peptide at admission was 243. The patient's albumin was 2.4, total protein of 4.9, globulin of 2.5. Vitamin B12 of 519, folate of 4.99. Liver function test showed bilirubin of 1.0, AST of 23, ALT of 35, alkaline phosphatase of 85. Total CPK was 55. C-reactive protein was 169 at admission. Influenza testing was negative. The patient's rheumatoid factor was 16. CCP IgG was below 15. ALTON and C-ANCA are pending. Proteinase 3 was below 0.2. P-ANCA antibody is pending. Myeloperoxidase antibody was above 8. HOSPITALIZATION COURSE: Art Lopez is a 73-year-old male with history of rheumatoid arthritis, been having problems with fatigue, shortness of breath, dyspnea especially on exertion as well as dry cough for the past 3 months. He had been on 4 courses of antibiotics and probable treatment with steroids, but whenever, he will stop steroids, his symptoms would resolve. He came into the hospital hypoxemic. The CT of the chest showed multiple pulmonary nodules and right-sided infiltrative change. He also has history of chronic kidney disease with creatinine of 1.2 to 1.3 at baseline and his creatinine was 2.2 on presentation. Due to the patient's history of rheumatoid arthritis, the differential included infection versus rheumatoid lung versus any other vasculitis versus malignancy. The patient underwent the needle biopsy of the peripherally located lung nodule by Dr. Thorpe on 05/26/18, which yielded inflammatory cells and no malignancy. The cultures showed no growth. Fungal cultures are still pending. AFB smear was negative. Unfortunately, after discussing with Dr. Kelley and Dr. Blankenship as well as Dr. Hummel, the pathologist, it is nearly impossible to diagnose vasculitis from his needle cytology biopsy. We asked Dr. Blankenship to see the patient in consultation as well as Dr. Kelley. Dr. 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 Unfortunately, the patient had been on baby aspirin since his hospital stay and that was unable to be performed. As per discussion with Dr. Thorpe, the kidney biopsy can be performed 5 days after stopping the patient's baby aspirin. In regards to the patient's acute kidney injury, the creatinine has improved slightly with intravenous hydration but then continues to be basically at what appears to be new baseline at 2.2. The patient was noted to have significant postvoid residual over 300 mL that was discussed with Dr. Feliz. Dr. Feliz knows the patient. 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 The patient's postvoid residual within the past 2 years also had been in the [address] Feliz did not think that placing a Dexter catheter would bring any positive results in this case. The patient is to continue Flomax and Avodart at this point. In regards to the patient's pulmonary symptoms, his hypoxemia resolved and he felt much better after steroids were started. During the hospital stay, the patient was treated with intravenous Solu-Medrol. Dr. Kelley saw the patient in consultation and recommended multiple immunologic testing. From the testing that is still pending, it includes CMV, IgG, IgM, microbacterial culture, and fungal culture from the biopsy. We also have P-ANCA antibody, ALTON, and C-ANCA pending. At this point, the patient is going to be discharged home on 60 of prednisone on a daily basis. We are trying to arrange on the day of discharge for the patient to come back on 06/02/18, or couple of days later for core kidney biopsy, which should be nonfocal and the laterality is up to the radiologist's discretion. The patient is to follow up with Dr. Kelley with the scheduled appointment on 06/04/18, at 1 p.m. The patient is also recommended to call Dr. Blankenship's office and schedule an appointment in 1 to 2 weeks. The patient is also recommended for followup with his primary care provider in approximately 4 to 7 days. Please note that in regards to the patient's hypertension, he was actually noted to be mildly hypotensive prior to his steroid treatment and he was dehydrated when he came to the hospital. He became mildly hypertensive once his CINTHIA inhibitor and metoprolol were discontinued. The patient also had rather strange hypertensive management. He stated that he had been using lisinopril almost on a daily basis, but he cut the dose to 20 mg daily. He has been also using metoprolol, but it was used on as needed basis if his blood pressure in the morning was higher. He stated that he has not been using his metoprolol recently at all. At this point, the patient is occasionally in a paced rhythm, but occasionally his heart rate would drop to the 40s. Due to that metoprolol was not the best medication for him. Lisinopril was not recommended due to his acute kidney injury. After discussion with Dr. Blankenship, we started him on Norvasc at 5 mg daily at discharge due to his pressures beginning to increase after his steroid treatment. The patient also had transthoracic echocardiogram obtained on 05/25/18 which showed EF of 50% to 55% with left ventricular systolic function in the lower limits of normal. Pacemaker wire was visualized in the right ventricle. There was mild-to- moderate mitral regurgitation and moderate tricuspid regurgitation , borderline pulmonary hypertension. The echocardiogram was obtained due to the patient's troponins being at 0.19 at its peak. Please note that apart from shortness of breath, the patient had no chest pain whatsoever. His troponin continues to be mildly increased throughout his hospital stay. Suspect it was due to demand ischemia, although the patient was hypoxemic when he presented to the hospital. The patient is also asked to follow up with Dr. Chambers in approximately 1 month. PHYSICAL EXAM AT THE TIME OF DISCHARGE: Blood pressure of 146/75, heart rate of 47 and regular, respiratory rate 16, oxygen saturation 98% on room air, and temperature 97.3. General: The patient is a very pleasant 73-year-old male, who is in no acute distress. Alert, awake, and oriented x3. HEENT: Head: Atraumatic and normocephalic. Eyes: Pupils are equal, round, and reactive to light and accommodation. Oropharynx clear. Mucosa moist. Neck: Supple. No JVD, no bruits bilaterally. Cardiovascular: Regular rate and rhythm. No murmur. Respiratory: Clear to auscultation bilaterally. Abdomen: Soft and nontender. Bowel sounds are present in all 4 quadrants. Extremities: There is trace bilateral pedal edema. Pulses +2 bilaterally. There is no clubbing or cyanosis. Neuro evaluation: Speech clear. Cranial nerves II through XII grossly intact. Motor strength is 5/5 bilaterally. On evaluation of the skin, no ecchymotic areas or rashes noted. Please note that this is a short summary of the patient's complicated hospital stay. Please refer to further medical records for details. TIME SPENT: Approximately 55 minutes was spent on the patient's discharge. Condition at discharge: stable [id number]/CPS #: [id number] [facility]
== END 2018-05-28 15:34 | disposition home or self-care (01) | DRG 545 ==
LOC: ED 08:46 → MEDTELE 12:30
PROVIDERS: ADMIT Internal Medicine; ATTEND Internal Medicine
PROC: 0B9K3ZX Drainage of Right Lung, Percutaneous Approach, Diagnostic (ICD-10-PCS; principal; 2018-05-26)
DX: I77.6 Arteritis, unspecified (principal); J96.01 Acute respiratory failure with hypoxia; N17.9 Acute kidney failure, unspecified; E87.2 Acidosis; I24.8 Other forms of acute ischemic heart disease; R91.8 Other nonspecific abnormal finding of lung field; M06.9 Rheumatoid arthritis, unspecified; I10 Essential (primary) hypertension; N40.0 Benign prostatic hyperplasia without lower urinary tract symptoms; N52.9 Male erectile dysfunction, unspecified; E78.5 Hyperlipidemia, unspecified; N32.3 Diverticulum of bladder; R79.1 Abnormal coagulation profile; I12.9 Hypertensive chronic kidney disease with stage 1 through stage 4 chronic kidney disease, or unspecified chronic kidney disease; E86.0 Dehydration; N18.9 Chronic kidney disease, unspecified; R79.82 Elevated C-reactive protein (CRP); Z82.49 Family history of ischemic heart disease and other diseases of the circulatory system; K52.9 Noninfective gastroenteritis and colitis, unspecified; K21.9 Gastro-esophageal reflux disease without esophagitis; Z72.89 Other problems related to lifestyle; J32.8 Other chronic sinusitis; R63.4 Abnormal weight loss; R00.1 Bradycardia, unspecified; D64.9 Anemia, unspecified; I08.1 Rheumatic disorders of both mitral and tricuspid valves; D89.9 Disorder involving the immune mechanism, unspecified; Z82.61 Family history of arthritis; Z80.9 Family history of malignant neoplasm, unspecified; Z90.49 Acquired absence of other specified parts of digestive tract; Z95.0 Presence of cardiac pacemaker; Z87.891 Personal history of nicotine dependence; Z88.0 Allergy status to penicillin; Z79.52 Long term (current) use of systemic steroids; Z68.23 Body mass index [BMI] 23.0-23.9, adult
CPT/HCPCS: 10005; 36415; 70450; 71045; 71046; 71275; 76604; 76770; 80048; 80053; 81003; 81015; 82550; 82553; 82607; 82728; 82746; 83516; 83540; 83550; 83605; 83735; 83880; 84484; 85025; 85379; 85610; 85730; 86038; 86140; 86200; 86255; 86431; 86644; 86645; 87040; 87070; 87086; 87102; 87116; 87205; 87206; 88172; 88173; 88177; 88305; 93005; 93306; 99284; A9270-GY; J1644; J2310; J2920; J2930; J3010; J3475; Q9967

== ENCOUNTER 2018-06-13 11:44 | Inpatient (IN) | payer MEDICARE ==
[2018-06-13] MEDS ORDERED: NS 0.9% 1000 ML** 2,100 ML IV ONE (12:15)
[2018-06-13] MEDS ORDERED: cefTRIAXone(*) 1 GM in NS 0.9% 50 ML* 50 ML IVPB ONE (12:15)
[2018-06-13] MEDS ORDERED: Azithromycin 500 mg/250 ml NS 500 MG/250 ML BAG IVPB ONE (12:15)
--- NOTE | 2018-06-13 12:15 | ED ---
Shortness of Breath - HPI Summary HPI Summary: This patient is a 73 year old M brought in by ambulance to [facility] accompanied by with a chief complaint of shortness of breath that began 06/10/2018. The patient rates the pain 4/10 in severity. Symptoms aggravated by nothing. Symptoms alleviated by nothing. Patient reports fever, productive cough, jaw pain (when opening mouth wide), low back pain, difficulty starting a urine stream, LLQ abd pain, weakness (cannot stand on his own), abdominal swelling, recent weight loss, and bilateral lower extremity edema. Pt denies any chills, erythema of eyes, sore throat, CP, arm pain, N/V, dysuria, hematuria, myalgia, rash, and dizziness. 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 - History of Current Complaint Chief Complaint: EDShortnessOfBreath Time Seen by Provider: 06/13/18 12:05 Hx Obtained From: Patient Onset/Duration: Sudden Onset, Lasting Days, Still Present Timing: Constant Current Severity: Mild Dyspnea At: Rest Aggrevating Factors: Nothing Alleviating Factors: Nothing Associated Signs & Symptoms: Cough (Productive), Edema - Allergy/Home Medications Allergies/Adverse Reactions: Allergies Allergy/AdvReac Type Severity Reaction Status Date / Time Penicillins Allergy Hives/Diff. Verified 06/13/18 11:59 Breathing/I tching PMH/Surg Hx/FS Hx/Imm Hx Previously Healthy: No Endocrine/Hematology History: Denies: Hx Diabetes, Hx Thyroid Disease Cardiovascular History: Reports: Hx Hypertension Respiratory History: Reports: Other Respiratory Problems/Disorders - Positive vasculitis Denies: Hx Asthma, Hx Chronic Obstructive Pulmonary Disease (COPD) GI History: Denies: Hx Ulcer History: Reports: Hx Benign Prostatic Hyperplasia Musculoskeletal History: Reports: Hx Rheumatoid Arthritis Sensory History: Reports: Hx Contacts or Glasses, Hx Hearing Aid - but not with patient Opthamlomology History: Reports: Hx Contacts or Glasses - Surgical History Surgery Procedure, Year, and Place: Appendectomy. Pacer Infectious Disease History: No Infectious Disease History: Reports: Traveled Outside the [place] in Last 30 Days - [facility] Denies: Hx Hepatitis, Hx Human Immunodeficiency Virus (HIV) - Family History Known Family History: Positive: Cardiac Disease - Social History Occupation: Retired Lives: With Family Alcohol Use: Occasionally Hx Substance Use: No Substance Use Type: Reports: None Hx Tobacco Use: Yes Smoking Status (MU): Former Smoker Review of Systems Positive: Fever. Negative: Chills Negative: Erythema Positive: Other - Positive jaw pain. Negative: Sore Throat Negative: Chest Pain Positive: Shortness Of Breath, Cough Positive: Abdominal Pain, Other - Positive abdominal swelling and recent weight loss. Negative: Vomiting, Nausea Genitourinary: Other - Positive difficulty starting a urine stream Negative: dysuria, hematuria Positive: Edema, Other - Positive low back pain. Negative arm pain. Negative: Myalgia Negative: Rash Neurological: Other - Negative dizziness Positive: Weakness All Other Systems Reviewed And Are Negative: Yes Physical Exam - Summary Physical Exam Summary: Constitutional: Well-developed, Well-nourished, Alert. (-) Distressed Skin: Warm, Dry HENT: Normocephalic; Atraumatic, R TMJ tenderness, no erythema, no trismus, no obvious oral abscess Eyes: Conjunctiva normal Neck: Musculoskeletal ROM normal neck. (-) JVD, (-) Stridor, (-) Tracheal deviation Cardio: Rhythm regular, rate normal, Heart sounds normal; Intact distal pulses; The pedal pulses are 2+ and symmetric. Radial pulses are 2+ and symmetric. (-) Murmur Pulmonary/Chest wall: Effort normal. (-) Respiratory distress, (-) Wheezes, (-) Rales, Crackles on the right lower Abd: Soft, R CVA tenderness, (-) Distension, (-) Guarding, (-) Rebound Musculoskeletal: (-) Edema Lymph: (-) Cervical adenopathy Neuro: Alert, Oriented x3 Psych: Mood and affect Normal Triage Information Reviewed: Yes Vital Signs On Initial Exam: Initial Vitals Temp Pulse Resp BP Pulse Ox 99.9 F 78 16 90/61 93 06/13/18 11:50 06/13/18 11:50 06/13/18 11:50 06/13/18 11:50 06/13/18 11:50 Vital Signs Reviewed: Yes Diagnostics - Vital Signs Vital Signs Temp Pulse Resp BP Pulse Ox 06/13/18 11:50 99.9 F 78 16 90/61 93 - Laboratory Result Diagrams: 06/13/18 13:03 06/13/18 13:03 Lab Statement: Any lab studies that have been ordered have been reviewed, and results considered in the medical decision making process. - Radiology Chest XR Radiology Interpretation Completed By: Radiologist Summary of Radiographic Findings: CXR reveals, per radiologist, cardiomegaly with mild interstitial edema. Small bilateral pleural effusions are noted. ED physician has reviewed this radiology report. - CT Maxillofacial CT CT Interpretation Completed By: Radiologist Summary of CT Findings: Maxillofacial CT reveals, per radiologist, Chronic sinusitis involving the maxillary sinuses and ethmoid air cells. Minimal degenerative changes of the temporal mandibular joint is noted. No fracture is identified. ED physician has reviewed this radiology report. CT Abdomen and Pelvis CT Interpretation Completed By: Radiologist Summary of CT Findings: Abdomen and pelvis CT reveals, per radiologist, No obstructive uropathy is noted. A small retroperitoneal hematoma adjacent to the lower pole of the left kidney consistent with recent biopsy kidney in the lower pole. Bladder diverticula in the right urinary bladder is present. Borderline splenomegaly. ED physician has reviewed this radiology report. - EKG 1155 Cardiac Rate: NL EKG Rhythm: Sinus Rhythm - 72 BPM EKG Comparison: No Significant Change Summary of EKG Findings: An EKG 1155 reveals sinus or ectopic atrial rhythm at 72 BPM with no STEMI. No change since 05/25/2018. Course/Dx - Course Course Of Treatment: This patient is a 73 year old M brought in by ambulance to [facility] accompanied by with a chief complaint of shortness of breath that began 06/10/2018. Physical Exam Findings: Crackles on the right lower side of the lung. R CVA tenderness, tenderness at R TMJ. No erythema. No trismus. No obvious oral abscess. An EKG 1155 reveals sinus or ectopic atrial rhythm at 72 BPM with no STEMI. No change since 05/25/2018. CXR reveals, per radiologist, cardiomegaly with mild interstitial edema. Small bilateral pleural effusions are noted. Maxillofacial CT reveals, per radiologist, Chronic sinusitis involving the maxillary sinuses and ethmoid air cells. Minimal degenerative changes of the temporal mandibular joint is noted. No fracture is identified. Abdomen and pelvis CT reveals, per radiologist, No obstructive uropathy is noted. A small retroperitoneal hematoma adjacent to the lower pole of the left kidney consistent with recent biopsy kidney in the lower pole. Bladder diverticula in the right urinary bladder is present. Borderline splenomegaly. Bloodwork obtained. In the ED course the patient was given Azithromycin, fluids , and ceftriaxone. Consult with Dr. Chavez (hospitalist) at 1448. She agrees to admit the patient for further evaluation. The patient is agreeable with this plan. He has pulmonary edema. I treated with antibiotics given his cough, crackles, and fever. - Diagnoses Provider Diagnoses: Congestive heart failure, CHF exacerbation, Pulmonary edema - Physician Notifications Discussed Care of Patient With: Ophelia Chavez Time Discussed With Above Provider: 14:48 Instructed by Provider To: Other - Consult with Dr. Chavez (hospitalist) at 1448. She agrees to admit the patient for further evaluation. Discharge - Sign-Out/Discharge Documenting (check all that apply): Patient Departure - [place] [facility] [place] Received Moderate/Deep Sedation with Procedure: No - Discharge Plan Condition: Stable Disposition: ADMITTED TO [facility] Referrals: Kailee MARION,Tracy Staley [Primary Care Provider] - - Attestation Statements Document Initiated by Scribe: Yes Documenting Scribe: Elissa Torres Provider For Whom Scribe is Documenting (Include Credential): Dr. Logan Ching MD Scribe Attestation: I, Elissa Torres, scribed for Dr. Logan Ching MD on 06/13/18 at 4005. Status of Scribe Document: Ready
[2018-06-13 13:19] LABS: Hematocrit 26 % (36-46); Hemoglobin 8.7 g/dL (14.0-18.0); Mean Corpuscular HGB Conc 34 g/dL (31-36); Mean Corpuscular Hemoglobin 29 pg (27-31); Mean Corpuscular Volume 85 fL (80-94); Red Blood Count 3.05 10^6 /uL (4.18-5.48); Red Cell Distribution Width 20 % (10.5-15); White Blood Count 5.7 10^3/uL (3.5-10.8)
[2018-06-13 13:30] LABS: ALT 25 U/L (7-52); AST 20 U/L (13-39); Albumin 2.3 g/dL (3.2-5.2); Alkaline Phosphatase 63 U/L (34-104); Anion Gap 8 mmol/L (2-11); BUN/Creatinine Ratio 24.5 (8-20); Blood Urea Nitrogen 57 mg/dL (6-24); CO2 Carbon Dioxide 22 mmol/L (22-32); Chloride 107 mmol/L (101-111); EGFR African American 33.4 (>60); EGFR Non-African American 27.6 (>60); Globulin 2.2 g/dL (2-4); Glucose 143 mg/dL (70-100); Potassium 3.8 mmol/L (3.5-5.0); Sodium 137 mmol/L (135-145); Total Protein 4.5 g/dL (6.4-8.9)
[2018-06-13 13:53] LABS: Influenza A Molecular NEGATIVE (Negative); Influenza B Molecular NEGATIVE (Negative)
[2018-06-13 14:05] LABS: ABS Basophils 0 10^3/ul (0-0.2); ABS Eosinophils 0 10^3/ul (0-0.6); ABS Lymphocytes 0.1 10^3/ul (1.0-4.8); ABS Monocytes 0.2 10^3/ul (0-0.8); ABS Neutrophils 5.4 10^3/ul (1.5-7.7); ABS Nucleated RBC 0 10^3/ul; Eosinophil % 0 %; Lymphocyte % 1.3 %; Mean Platelet Volume 7.5 fL (7.4-10.4); Nucleated Red Blood Cells % 0; Platelet Count 42 10^3/uL (150-450)
[2018-06-13 14:08] LABS: Troponin I 0.58 ng/mL (<0.04)
[2018-06-13] MEDS ORDERED: methylPREDNISolone SOD SUCC* 1,000 MG in NS 0.9% 100 ML* 100 ML IVPB ONE (16:00)
[2018-06-13] MEDS ORDERED: Acetaminophen TAB* 325 MG PO PRN (16:01)
[2018-06-13] MEDS ORDERED: Morphine INJ* 2 MG/ML 1 ML SYRINGE (TWO MG - NEW SYRINGE VERSION) IV PRN (16:01)
[2018-06-13] MEDS ORDERED: Morphine INJ* 2 MG/ML 1 ML SYRINGE (TWO MG - NEW SYRINGE VERSION) ONE (16:25)
[2018-06-13 17:32] LABS: LDH 225 U/L (140-271)
[2018-06-13] MEDS: Morphine 4 MG/ML VIAL (1 ml) 4 MG/ML VIAL IV PRN ×2 (17:36→22:42)
--- NOTE | 2018-06-13 18:01 | CONSULT ---
Consult Consult: Mr. Lopez is a 73 year old man with a remote history of RA, more recently with recurrent episodes of sinusitis and upper respiratory symptoms, steroid responsive. His serologies were notable for an elevated ANCA and elevated MPO antibody. As he has had progressive renal insufficiency, a renal biopsy was done this past week. Per my discussion with Dr. 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 He had been on Prednisone as an out patient and was tenatively scheduled to get Rituximab this coming week. However he was admitted today with complaints of worsening shortness of breath and diffuse myalgias, low grade fever, shoulder and jaw pain. He has progressive renal insufficiency, thrombocytopenia, splenomegaly and cardiomegaly. 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 We will proceed with Solumedrol 1 gram IV and Rituximab 700mg IV. Discussed with patient, his , Dr. Gutierrez, Dr. Blankenship and Dr. Vincent. Of note, he had an indeterminate quantiferon test, noted on outpatient testing. He was tentatively also scheduled to see infectious disease. It may be helpful to have ID involved, although this test result likely is not significant.
[2018-06-13] MEDS ORDERED: RITUXIMAB IVPB ONE ×2 (18:30→20:00)
[2018-06-13] MEDS ORDERED: NS 0.9% IVPB ONE ×2 (18:30→20:00)
[2018-06-13 19:16] LABS: C Reactive Protein 233.45 mg/L (<8.01)
[2018-06-13 19:19] LABS: Troponin I 0.46 ng/mL (<0.04)
--- NOTE | 2018-06-13 19:28 | CONSULT ---
Subjective Date of Service: 06/13/18 Interval History: Admission and consult date 06/13/2018 [facility] [place] Orthodontic Treatment Coordinator Jayce Kelley MD Dermatology Procedural Physician: Dr. Blankenship Air Brake Adjuster: Dr. Mike Chambers CC: Severe weakness and joint pains an dyspnea. HPI Mr. Lopez is a 73 year old man now diagnosed per my conversation with Dr. 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 He was suposed to start rituximab this week. He has been on Prednisone as an outpatient. He is admitted with worsening dyspnea, diffuse myalgias to the point he can't sit up unassisted in bed without me helping, low grade fever, shoulder and jaw pains. He is currently receiving 1,000 mg of IV solumedrol. Dr. Kelley is arrange for urgent rituximab to start tonight. Patient has no chest pain. His troponin and BNP are higher than earlier this month at which time an echo was unremarkable. His renal function is also worse which can account for a higher troponin. He has an unremarkable ekg Allergies: Penicillins 06/09/11 allergy list reviewed on 02/03/2018 pmhx Sinus node dysfunction - nonsustained VT and SVT, both of which are well suppressed with the use of a beta alexandra in a patient with normal LV function and no ischemia on previous stress testing Pacemaker HTN Gastroesophageal Reflux Disease (GERD) FH: Father: None. due to Unknown Causes. Mother: Cancer. due to Cancer. SH: Personal Habits: Smoking: Patient is a former smoker - smoked for 20+years, quit in 1990.Cigarette Use: Former Cigarette Smoker.Alcohol: Rarely consumes alcohol. Medications Active Medications: Acetaminophen (Tylenol Tab*) 650 mg PO Q6H PRN PRN Reason: pain/fever Amlodipine Besylate (Norvasc Tab*) 5 mg PO DAILY MARTI Finasteride (Proscar Tab*) 5 mg PO DAILY MARTI Hydroxychloroquine Sulfate (Plaquenil Tab*) 200 mg PO BID MARTI Rituximab 500 mg/ Rituximab (200 mg/ Sodium Chloride) 350 mls @ 0 mls/hr IVPB ONCE@1999 ONE Stop: 06/13/18 20:01 Morphine Sulfate (Morphine 4 Mg/Ml Vial (1 Ml)) 1 mg IV Q1H PRN PRN Reason: SEVERE PAIN Last Admin: 06/13/18 17:36 Dose: 1 mg Pantoprazole Sodium (Protonix Tab*) 40 mg PO BID [facility] Tamsulosin HCl (Flomax Cap*) 0.4 mg PO DAILY [facility] Home Medications: Hydroxychloroquine TAB* [Plaquenil TAB*] 200 mg PO BID 08/26/13 [History Confirmed 06/13/18] Tamsulosin HCl [Flomax] 0.4 mg PO DAILY 08/26/13 [History Confirmed 06/13/18] Omeprazole 20 mg PO BID #60 capsule. 05/28/18 [Rx Confirmed 06/13/18] amLODIPine TAB* [Norvasc 5 mg TAB*] 5 mg PO DAILY #30 tab 05/28/18 [Rx Confirmed 06/13/18] predniSONE TAB* [Deltasone 20 MG TAB*] 60 mg PO DAILY #90 tab 05/28/18 [Rx Confirmed 06/13/18] Finasteride 5 mg PO DAILY 06/01/18 [History Confirmed 06/13/18] Review of Systems - Measurements Intake and Output: Intake and Output Last 24 Hours 06/11/18 06/12/18 06/13/18 06/14/18 06:59 06:59 06:59 06:59 Intake Total 50 Balance 50 Weight 158 lb 4.8 oz Intake: IV Fluids 50 - Review of Systems Constitutional Symptoms: Positive: Weakness, Fatigue, Fever Dermatology: Negative: Rash, Skin Lesions HEENT: Negative: Change in Hearing, Vertigo Eyes: Negative: Change in Vision, Double Vision Thyroid: Negative: Change in Skin/Hair Pulmonary: Positive: Shortness of Breath, Exercise Intolerance Negative: Hemoptysis, Respiratory Distress, COPD, Asthma, Home Oxygen Cardiology: Positive: Shortness of Breath Negative: Chest Pain, Palpitations, Swelling of Ankles, Peripheral Vascular Dis, Edema, Faintness, Syncope, Claudication, Paroxysmal Nocturnal Dyspnea, Orthopnea Gastroenterology: Negative: Abdominal Pain, Nausea, Vomiting, Anorexia Genital - Urinary: Negative: Dysuria, Hematuria Musculoskeletal: Negative: Joint Pain, Joint Stiffness Endocrinology: Negative: Obesity, Diabetes, Polydipsia, Polyuria Hematologic/Lymphatic: Negative: Use of Anticoagulant, Use of Antiplatelet Drugs Neurology: Negative: Change in Balancing, Change in Coordination, Change in Memory, Hx of Stroke\TIA, Hx Seizures Psychiatry: Negative: Unusual Anxiety, Suicidal Ideation Allergic/Immunologic: Negative: Hx HIV, Immunocompromise Review of Systems Statement: All other review of systems negative, unless stated above. Objective Vital Signs: Temp Pulse Resp BP Pulse Ox 98.3 F 81 20 145/61 100 06/13/18 17:25 06/13/18 17:25 06/13/18 18:24 06/13/18 17:25 06/13/18 17:25 Oxygen Devices in Use Now: None Appearance: patient appears ill but not toxic appearing Ears/Nose/Mouth/Throat: Clear Oropharnyx, Mucous Membranes Moist Neck: NL Appearance and Movements; NL JVP, Trachea Midline Respiratory: Symmetrical Chest Expansion and Respiratory Effort, - - poor inspiratory effort no obvious wheeze or rales Cardiovascular: NL Sounds; No Murmurs; No JVD, RRR, No Edema Abdominal: NL Sounds; No Tenderness; No Distention Extremities: No Edema Skin: No Rash or Ulcers Neurological: Alert and Oriented x 3 Laboratory Results: 06/13/18 13:03 06/13/18 13:03 Total Bilirubin 1.30 mg/dL (0.2-1.0) H 06/13/18 13:03 Direct Bilirubin 0.60 mg/dL (0.03-0.18) H 06/13/18 13:03 AST 20 U/L (13-39) 06/13/18 13:03 ALT 25 U/L (7-52) 06/13/18 13:03 Alkaline Phosphatase 63 U/L (34-104) 06/13/18 13:03 B-Natriuretic Peptide 827 pg/mL (<=100) H 06/13/18 13:03 Total Protein 4.5 g/dL (6.4-8.9) L 06/13/18 13:03 Albumin 2.3 g/dL (3.2-5.2) L 06/13/18 13:03 Globulin 2.2 g/dL (2-4) 06/13/18 13:03 Albumin/Globulin Ratio 1.0 (1-3) 06/13/18 13:03 06/13/18 06/13/18 13:03 18:52 Troponin I 0.58 H* 0.46 H* Diagnostic Imaging: Cardiac Testing: Stress Test - (01/21/2016) Normal cardiac chemical nuclear stress ttest. No evidence of ischemia/infarction. Normal LVF. EF 54%. Exam Date: 06/13/[address] of the mandible and facial bones was obtained. IMPRESSION: Chronic sinusitis involving the maxillary sinuses and ethmoid air cells. Minimal degenerative changes of the temporal mandibular joint is noted. No fracture isidentified. Exam Date: 06/13/18 CT of the abdomen and pelvis was performed without oral or IV contrast. Coronal andsagittal reconstructed images were obtained. Lung bases demonstrate some atelectasis in the right lung base with some mild pleural thickening. Small left pleural effusion is likely present. The heart demonstrates no significant pericardial effusion. IMPRESSION: No obstructive uropathy is noted. A small retroperitoneal hematoma adjacent to the lower pole of the left kidney consistentwith recent biopsy kidney in the lower pole. Bladder diverticula in the right urinary bladder is present. Borderline splenomegaly. Exam Date: 05/25/18 0903 INDICATION: Shortness of breath 1. No CT of evidence of pulmonary embolism. 2. There is a large density in the lateral aspect of the right lower lobe measuring up to 3.6 x 7.9 cm in the axial plane in addition to multiple pulmonary nodules scattered throughout both lungs. Differential diagnosis includes neoplasm, inflammatory lung disease or multifocal septic emboli. 05/25/2018 Left ventricular systolic function is at the lower limits of normal. The estimated ejection fraction is 50-55%. There is abnormal ventricular septal wall motion consistent with right ventricular pacemaker. A pacemaker wire is visualized in the right ventricle. There is a trace of aortic regurgitation. There is no evidence of aortic stenosis. There is mild to moderate mitral regurgitation. There is mild to moderate tricuspid regurgitation. There is evidence of borderline pulmonary hypertension. There is no significant pericardial effusion. EKG Data: ekg today shows nsr, rsr' v1, no ischemic changes Assessment/Plan I discussed the case with Dr. Kelley. Patient does not seem to be having an acute coronary syndrome, myocarditis, or pericarditis. This was discussed with patient and his at bedside. I think his dyspnea is related to the underlying lung disease. He has no chest pain or ekg changes.. The abnormal biomarkers may be related to systemic and pulmonary stress of his inflammatory condition. I do not think he would benefit from a cardiac biopsy. His device is not MRI compatible. His underlying condition should be aggressively treated which is being done with high dose IV steroids and urgent rituximab is to start tonight. Out of precaution I would obtain another echocardiogram. If it is unchanged from 3 weeks ago, I do not think any further cardiac evaluation or treatment is needed at this time. If there is a significant change please re- consult the cardiology service. Would consider adding pharmacologic DVT prophylaxis.
--- NOTE | 2018-06-13 20:43 | HP ---
CC: Tracy Dugan NP, [place]; Dr. Kelley; Dr. Blankenship * HISTORY AND PHYSICAL: DATE OF ADMISSION: 06/13/18 TIME OF EVALUATION: 3 p.m. PRIMARY CARE PROVIDER: Tracy Dugan NP, at the [place]. CONSULTING NASCAR RACER: Dr. Kelley. CONSULTING ADDICTION PROFESSIONAL: Dr. Blankenship. CHIEF COMPLAINT: "I crashed." HISTORY OF PRESENT ILLNESS: Mr. Lopez is a 73-year-old male with a past medical history of BPH; GERD; hypertension; hyperlipidemia; undifferentiated connective tissue disorder; sick sinus syndrome, status post dual-chamber pacemaker; paroxysmal supraventricular tachycardia, who presents to the emergency room with complaints of pain in every joint. The patient was admitted to [facility] [place] from 05/25/18 to 05/28/18. At that time, he presented with complaints of progressive exertional dyspnea since January 2018. He was in [place] at that time, went to a walk-in clinic, was diagnosed with sinusitis, prescribed antibiotics and steroids with mild improvement. As soon as the steroids were completed, he started to have symptoms again. He saw his PCP in April after returning from [place], and at that point, he was prescribed antibiotics and steroids as he was going to a trip to the [place] and [place]. He felt improved with the regimen, but as soon as he returned and the steroids were completed, he started to have more shortness of breath again. During that admission, the patient was seen in consultation by Dr. Kelley, Dr. Blankenship, and Dr. Kelly. At that point, the impression was that the patient had pulmonary nodules and acute kidney injury that could be related to vasculitis. He was discharged home on 60 mg of prednisone and the plan was for him to have a lung biopsy initially. That was done on 05/26/18 and he was found to have benign features with mixed chronic inflammatory elements. The patient was seen by Dr. Kelley and Dr. Blankenship as an outpatient and he underwent a renal biopsy on 06/07/18. The official pathology report is still pending as it was sent to [facility], so preliminary report as per Dr. 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 The patient states that when he went to his kidney biopsy on 06/07/18, he was feeling well, ambulating independently and although he still had some shortness of breath, it was mild. He states that he was advised to cut down his prednisone dose from 60 to 50 mg a day and initially he felt okay, but as the week went by, he started to have more joint pain, more difficulty with movement , progressive shortness of breath to the point when yesterday he could not move independently and required significant assistance from his . They contacted Dr. Kelley and he advised increasing his prednisone back to 60 mg and to come to the emergency room in case his symptoms did not improve. He states that he could barely sleep last night as the pain was severe and he could barely move. Although he states that his shortness of breath is the same, his disagrees and thinks it is significantly worse. The patient complains of pain on the small joints of his hands, especially the metacarpal ones to the wrists, elbows, shoulders, temporomandibular joint, knees , ankles, and little joints of the feet. There is no complaint of cervical spine pain. He denies fever, chills, chest pain, palpitations, nausea, vomiting. He does have lower extremity edema that he thinks is unchanged, but his thinks it is worse. The patient denies rashes and oral ulcers. PAST MEDICAL HISTORY: 1. Paroxysmal supraventricular tachycardia. 2. Hypertension. 3. Sick sinus syndrome, status post pacemaker placement. 4. Undifferentiated connective tissue disorder. The patient has been followed by Rheumatology for a long time and going back to older notes, the patient had arthritis, positive ALTON and positive ANCA, but looking at older notes, his symptoms seemed to be pretty mild, and at least from where I can see, he did not meet criteria for any specific rheumatological disease going back to 2011. He was being treated with diclofenac and hydroxychloroquine and per his report he was doing fairly well. He was later on diagnosed with rheumatoid arthritis, but his management was unchanged as he seemed to be well controlled with hydroxychloroquine only. 5. BPH. 6. GERD. 7. Hyperlipidemia. PAST SURGICAL HISTORY: 1. Status post appendectomy. 2. Status post tonsillectomy. MEDICATION LIST: 1. Amlodipine 5 mg p.o. daily. 2. Finasteride 5 mg p.o. daily. 3. Hydroxychloroquine 200 mg p.o. b.i.d. 4. Omeprazole 20 mg p.o. b.i.d. 5. Prednisone 60 mg p.o. daily. 6. Tamsulosin 0.4 mg p.o. daily. ALLERGIES: With PENICILLINS, the patient had hives. FAMILY HISTORY: His mother had a history of cancer and there is reported history of CAD. His daughter has Sjogren's syndrome. SOCIAL HISTORY: The patient is a former smoker. He smoked up to 2 packs a day for 20 years. He quit more than 30 years ago. He drinks approximately 2 drinks per week. 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 REVIEW OF SYSTEMS: A 14-point review of systems was performed and all the pertinent negative and positive findings are in the HPI. PHYSICAL EXAMINATION GENERAL: The patient is a pleasant, elderly gentleman, lying in the ED stretcher, who is comfortable as long as he does not move. VITAL SIGNS: Temperature 99.9, heart rate is 67, respiratory rate is 24, oxygen saturation is 99% on room air, blood pressure is 120/64. HEENT: Pupils are equal. Moist mucous membranes. CHEST: Breath sounds present bilaterally, diminished in both bases, but no added sounds. CVS: Normal S1, S2. Regular rate and rhythm. ABDOMEN: Soft with mild epigastric tenderness. No guarding. No rebound. Bowel sounds are present. EXTREMITIES: There is moderate bilateral lower extremity edema. The patient has a vasculitic rash to the dorsum of the left foot, nonblanchable, but nonpalpable also. There was no Raynaud's phenomenon visible at this time. NEURO: He is alert, oriented x3. Able to move all 4 extremities. OSTEOARTICULAR: The patient has arthritis of his MCP, wrists, elbows, knees, ankles symmetric with edema and warmth. No erythema. He does have reversible swan- neck deformities on his hands. No other rash other than the one described on his left foot. DIAGNOSTIC STUDIES/LAB DATA: The patient had a CBC that showed a WBC of 5.7, hemoglobin 8.7, hematocrit 26, platelets of 42 with 95% neutrophils. Chemistry showed a sodium of 137, potassium of 3.8, chloride of 107, bicarb of 22, BUN of 57, creatinine of 2.3, glucose of 143, lactic acid is 1.7, calcium is 8. Total bilirubin is 1.3, AST is 20, ALT is 25, alk phos 63. Troponin is 0.58, BNP 827. Total protein 4.5, albumin 2.3, globulin 2.2. Influenza A and B were negative. Going back to labs on his prior admission, the patient's urinalysis on his prior admission showed 2+ blood, 2+ LE, 2+ wbc's, 2+ rbc's, but no protein. His rheumatoid factor was slightly positive on his prior admission at 16 and P- ANCA was also positive with a myeloperoxidase antibody greater than 8. I do not see an ALTON on his prior admission, but there is a positive ALTON in 2013 with a titer of 1:160 speckled and at that time SSA, SSB, anti-Sm, anti-Scl-70, anti- BOTTOM CRANE OPERATOR were all negative. I do not see anti-double stranded DNA. EKG done on 06/13/18 at 11:55 a.m. shows sinus or ectopic atrial rhythm with no acute ischemic changes. There is no significant change when compared to his prior EKG from 05/25/18. Chest x-ray shows cardiomegaly with mild interstitial edema with small bilateral effusions and I reviewed the film and I agree with this reading. CT of the abdomen and pelvis showed no obstructive uropathy. There is a small retroperitoneal hematoma adjacent to the lower pole of the left kidney consistent with recent kidney biopsy. Bladder diverticula in the right urinary bladder is present and there is borderline splenomegaly. Maxillofacial CT showed chronic sinusitis involving the maxillary sinuses and ethmoid air cells. There are minimal degenerative changes of the temporomandibular joint and no fracture is identified. On his prior admission, he had a CTA of the chest that showed large density in the lateral aspect of the right lower lobe measuring 3.6 x 7.9 cm in the axial plane in addition to multiple pulmonary nodules scattered throughout both lungs. Transthoracic echocardiogram showed ejection fraction of 50% to 55% with abnormal ventricular septal wall motion consistent with a right ventricular pacemaker, trace aortic regurgitation, [id number] mitral regurgitation, [id number] tricuspid regurgitation, borderline pulmonary hypertension. ASSESSMENT AND PLAN: Mr. Lopez is a 73-year-old male with a complex past medical history that includes benign prostatic hypertrophy; gastroesophageal reflux disease; hypertension; undifferentiated connective tissue disorder; hyperlipidemia; sick sinus syndrome, status post permanent pacemaker; recent admission to [facility] [place] with hypoxemic respiratory failure with pulmonary nodules and acute kidney injury thought to be secondary to possible vasculitis, who presents to the emergency room with complaints of diffuse joint pains, found to have worsening of his laboratory markers suspicious for systemic lupus erythematosus. 1. Rheumatological disease. The patient has had an undifferentiated connective tissue disorder for many years with arthritis and a positive ALTON. He also had positive rheumatoid factor and was later on diagnosed with rheumatoid arthritis. On his prior admission, there was concern for possible granulomatosis with angiitis as the patient had sinuses complaints with lung nodules and worsening renal function and positive ANCA. 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 He will be admitted to the telemetry floor and we will send rheumatological markers including ESR, CRP, ALTON, anti-Sm, anti-double stranded DNA, SSA, SSB, C3 , C4, CH50. I discussed the case with Dr. Kelley. The patient may have a flare -up because he decreased his steroids, but the dose was decreased by only 10 mg and just for 5 days, so I suspect this probably represents progression of disease. I discussed the case with Dr. Kelley and Dr. Blankenship. They are both in agreement that the patient would benefit from pulse therapy with Solu-Medrol , so he will receive 1000 mg today and the next question is what are the drugs will be added to his regimen. The original plan was to start him on Rituxan and he has an infusion scheduled for 06/16/18, but with his change in condition , we may have to consider different drugs. 2. Troponin elevation. Suspect this may be secondary to myocarditis associated with his rheumatological disease. The patient has no complaints of chest pain and his EKG shows no acute ischemic changes. His troponins were around 0.19 on his prior admission. They are higher now and he has more shortness of breath, so I will check serial troponins and repeat a limited echocardiogram to assess his ejection fraction as it may have dropped. I requested Cardiology consultation with Dr. Worrell. 3. Glomerulonephritis. As per Dr. 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 He is in agreement with pulse therapy with Solu-Medrol. We will continue to monitor his renal function. On top of that, the patient also has a history of benign prostatic hypertrophy and appears to be retaining urine. We are going to place a Dexter catheter and monitor his urine output. 4. Anemia. His H and H are 8.7/26 today and this is similar to his H and H from his prior admission. There are no signs of active bleeding. His total bilirubin is slightly elevated and I will check indirect bilirubin and LDH to see if there are any signs of hemolytic anemia. 5. Thrombocytopenia. The patient's platelet count is down to 42 today and it was 264 on the day of his liver biopsy. He does not appear to have any signs of bleeding at this time and I suspect this is related to his rheumatological process and hope it will respond to steroids. 6. Hypertension. We will continue his amlodipine with holding parameters. 7. Arthritis. The patient is already on high-dose steroids and I am going to add low-dose morphine to try and give him some symptomatic relief as he can barely move in bed at this time. NSAIDs were discontinued on his prior visit due to his acute kidney injury. He will be continued on his hydroxychloroquine. 8. Gastroesophageal reflux disease. We will continue PPI. 9. Benign prostatic hypertrophy. We will continue Flomax since the patient will now have a Dexter catheter. 10. DVT prophylaxis: The patient has a score of 3 on the DVT Prophylaxis Risk Assessment Guide. Pharmacological prophylaxis with heparin is contraindicated at this time due to his significant thrombocytopenia and elevated risk of bleeding. The patient will not be able to tolerate SCDs due to his significant joint pain. If his platelets trend up, we may be able to start Lovenox. 11. Code status is full. TIME SPENT: Approximately 120 minutes was spent with the patient and 's interview, medical records review, physical examination to complete this admission, more than half of this time was spent [id number] with the patient and coordination of care. [id number]/[facility] #: [id number] ESTEPHANIE
[2018-06-13] MEDS: Pantoprazole TAB * 40 MG TAB PO SCH (20:51)
[2018-06-13] MEDS: Hydroxychloroquine TAB* 200 MG PO SCH (20:52)
[2018-06-13] MEDS ORDERED: diPHENhydraMINE IV* 50 MG/ML 1 ml VIAL (BENADRYL) SLOW PUSH ONE (21:55)
[2018-06-13] MEDS ORDERED: diPHENhydraMINE IV* 50 MG in NS 0.9% 50 ML* 50 ML IVPB ONE (21:55)
--- NOTE | 2018-06-13 22:23 | CONS ---
CONSULTATION REPORT: DATE OF CONSULT: 06/13/18 CONSULTING PHYSICIAN: Dr. Gutierrez. REASON FOR CONSULTATION: Flare of vasculitis. HISTORY OF PRESENT ILLNESS: Mr. Lopez is a 73-year-old male with a longstanding history of rheumatoid arthritis, who more recently has had features of a pulmonary renal syndrome, specifically vasculitis, which has included recurrent sinus and pulmonary upper respiratory symptoms, which have been steroid-responsive. He had been admitted recently to [facility] [place] and was felt to possibly have an underlying microscopic polyangiitis; however, it was felt that this should be confirmed histologically. Therefore, he was scheduled for a renal biopsy as an outpatient. Per my discussion today with Dr. Blankenship, it did indeed confirm a pauci-immune glomerulonephritis. He had tentatively been scheduled for rituximab to be started this coming week; however, his symptoms have worsened. Specifically, he has noted increased shortness of breath, which began rather acutely. He has also been on prednisone as an outpatient at 60 mg , which had been decreased to 50 mg daily. However, given his worsening symptoms yesterday, which has included a fever of 100.9 as well as arthralgias, his prednisone was increased back to 60 mg daily. This morning, he was able to observe an Easter egg benz, but then after that he felt very weak, he felt diffuse arthralgias and specifically he had complaints of pain in his elbows as well as his shoulders and jaw pain, although he denied any specific joint swelling. He was therefore taken by ambulance to the emergency room and was found on serological evaluation to have progressive renal insufficiency with a creatinine of greater than 2.3 and an elevated BNP with the chest x-ray showing cardiomegaly and CT scan of the abdomen and pelvis revealing splenomegaly as well as a small retroperitoneal hematoma from his recent renal biopsy. Otherwise , he has been very uncomfortable and continues to have some chills and a low- grade fever, which I confirmed with his on review of his condition. He denied any specific sore throat, chest pain, nausea, vomiting, or blood in the urine, but he does have progressive discomfort as well as weakness and difficulty even opening his mouth because of the jaw pain and he has also had a poor urine stream as well too. PAST MEDICAL HISTORY: Includes: 1. Paroxysmal supraventricular tachycardia. 2. Essential hypertension. 3. 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 4. Cardiac pacemaker in situ. 5. Sinus node dysfunction. 6. Rheumatoid arthritis. PAST SURGICAL HISTORY: Includes an appendectomy with a pacer. CURRENT MEDICATIONS: Current meds as an outpatient include: 1. Flomax 0.4 mg daily. 2. Lisinopril 40 mg daily. 3. Metoprolol ER 50 mg to 100 mg daily. 4. Cyanocobalamin 1000 mcg weekly. 5. Finasteride 5 mg daily. 6. Hydrochlorothiazide. 7. Prednisone at 60 mg daily. 8. Amlodipine 5 mg daily. 9. Plaquenil 200 mg take 1 twice a day. 10. Omeprazole. ALLERGIES: Include PENICILLIN. FAMILY HISTORY: Notable for his father dying of unknown causes, mother had cancer and an uncle had rheumatoid arthritis. SOCIAL HISTORY: In terms of his personal habits, he is a former smoker. He smoked for 20 years; he quit in 1990. He is a former cigarette smoker and he rarely consumes alcohol. REVIEW OF SYSTEMS: Constitutional: He has had some decrease in energy. No specific weight changes. Eyes: Denies discharge, dryness or irritation or redness. ENT: Denies ulcers, but he does have jaw pain and difficulty swallowing because of that. Cardiovascular: Denies specific chest pain, but he does have chronic shortness of breath, which has progressively been getting a bit worse. Respiratory: Denies any specific night sweats. GI: He has had some lower quadrant discomfort, but denies any anorexia, colitis or gas or bloating. Musculoskeletal: He does complain of arthralgias in his shoulders as well as his elbow region and upper jaw, but he denies any neck stiffness or rigidity. Integument: He denies any specific rash or Raynaud's. Neurologic: Denies any specific memory loss, no recent stroke. Psychiatric: Some anxiety related to his recent medical condition. Also endocrine review of systems, denies any history of thyroid disease and he also denies any history of diabetes. INFECTIOUS DISEASE HISTORY: No recent travel. He does have an indeterminate QuantiFERON test. Denies any hepatitis symptoms. OCCUPATION: He is retired, lives with his family. PHYSICAL EXAM: On physical exam, he had a temperature of 99.9, pulse of 78, respiratory rate of 16, blood pressure 90/61 with pulse ox of 93%. In general, he appeared to be alert. He was able to answer questions, but he was complaining of significant jaw discomfort, so it was hard to talk extensively. He was in moderate discomfort. Skin was warm and dry. HEENT exam is normocephalic, atraumatic. He did have some right TMJ tenderness and to a lesser extent left TMJ tenderness, but no erythema. No nuchal rigidity and no obvious oral abscess. Eyes: Conjunctiva was normal. Neck: Had a fairly good range of motion of the neck with no tracheal deviation. Cardiovascular exam revealed a regular rate and rhythm, normal S1 and S2. No S3 or S4. Pedal pulses were 2+ and symmetric. Radial pulses were 2+ and symmetric. Pulmonary: Effort was normal. There were no wheezes or rhonchi. There were minimal crackles at the right lower base. Abdomen: Soft, nontender, nondistended, minimal right CVA tenderness, but no guarding or rebound. Musculoskeletal: He had tenderness in his shoulders and elbows and moderate restriction in those regions, but there was no synovitis and no warmth of the joints. Lymph: No adenopathy, no cervical adenopathy. Neurologic: He was oriented x3. Mild weakness in the upper extremities likely secondary to discomfort in his joints rather than specific myopathy. Psychiatric: Slightly anxious. Musculoskeletal : As noted above. DIAGNOSTIC STUDIES/LAB DATA: He had a white count of 5.7, platelet count of 42, 000, BUN 57, creatinine 2.33, sodium of 137. He had a hemoglobin of 8.7. Influenza was negative. He did have a maxillofacial CT, which revealed sinusitis, which was chronic in the maxillary region. He also had a chest x-ray , which showed cardiomegaly with mild interstitial edema, small bilateral pleural effusions noted. He had an abdomen and pelvis CT, which showed bladder diverticula in the right urinary bladder present with no obstructive uropathy. There was a small retroperitoneal hematoma adjacent to the lower pole of the left kidney consistent with a recent biopsy of the kidney in the lower pole. ASSESSMENT: Mr. Lopez is 73-year-old male with a history of pulmonary renal syndrome. Per my discussion with his metalsmith helper today Dr. Blankenship, verbal initial report of his recent kidney biopsy did indeed confirm a pauci-immune glomerulonephritis. 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 I spoke to Dr. Gutierrez, the patient and his as well as Dr. Bai from Cardiology as well as Dr. Blankenship today regarding his case. I do agree with checking serologies to evaluate for other overlapping connective tissue disorders, although lupus seems less likely especially as his renal biopsy appears to be pauci-immune in nature rather than having prominent immune complex deposition. It would also not appear to be that these symptoms are classic for rheumatoid arthritis and in fact represent another overlapping process, specifically the pulmonary renal syndrome as noted above. He seems to be progressing in terms of his underlying condition and despite moderate to high doses of steroids as an outpatient, continues to decline with progressive renal insufficiency, pulmonary symptoms and a possible indolent carditis as well. His main issues are his kidneys and he has had progressive renal impairment with glomerular involvement. Therefore , per my discussion with Nephrology today, we will pulse him with Solu-Medrol at 1 g daily for the next 2 to 3 days. I discussed this with Dr. Gutierrez _in regards to this regimen. We will go ahead and proceed with rituximab at 375 mg per m2. There is some evidence that cyclophosphamide might help also in the setting of progressive renal insufficiency. Also, plasmapheresis could be considered. The risk here is that he may have an overlapping infection given his low-grade fever and subjective chills. Also, he has thrombocytopenia, which would make plasma exchange risky with a Troy catheter. I would like to see how he responds to high dose steroids as well as rituximab over the next few days before considering more prudent immunosuppressive cytotoxic therapy, which is riskier in terms of residential risks of bladder malignancy and also possibly lowering his platelets further and also the risk for infection, although Rituximab is also immunosuppressive, and he will need to be monitored carefully. In regards to this, he also had a QuantiFERON test done as an outpatient. This was on 06/04/18 and it was indeterminate. He may benefit from having Infectious Disease see him. He may also benefit especially given that he is on high dose steroids with PCP prophylaxis and we would want to gradually taper his corticosteroids as he clinically improves. We will consider vitamin D supplementation as well as proton pump inhibitor for GI prophylaxis as well as bone protection. I will continue to follow daily. TIME SPENT: Time spent with the patient as well as reviewing his condition and reviewing his condition with other specialists has been greater than 120 minutes. [id number]/[facility] #: [id number] ESTEPHANIE
[2018-06-13 23:07] LABS: Troponin I 0.42 ng/mL (<0.04)
[2018-06-14] MEDS: ceFAZolin 1 GM ADVAN(*) 1 GM in NS 0.9% 50 ML* 50 ML IVPB SCH ×2 (01:13→12:05)
[2018-06-14 06:34] LABS: ABS Basophils 0 10^3/ul (0-0.2); ABS Eosinophils 0.1 10^3/ul (0-0.6); ABS Lymphocytes 0.1 10^3/ul (1.0-4.8); ABS Monocytes 0.1 10^3/ul (0-0.8); ABS Neutrophils 4.4 10^3/ul (1.5-7.7); ABS Nucleated RBC 0 10^3/ul; Eosinophil % 1.6 %; Hematocrit 26 % (36-46); Hemoglobin 8.9 g/dL (14.0-18.0); Lymphocyte % 1.5 %; Mean Corpuscular HGB Conc 34 g/dL (31-36); Mean Corpuscular Hemoglobin 29 pg (27-31); Mean Corpuscular Volume 85 fL (80-94); Mean Platelet Volume 8.4 fL (7.4-10.4); Nucleated Red Blood Cells % 0; Platelet Count 25 10^3/uL (150-450); Red Cell Distribution Width 20 % (10.5-15); White Blood Count 4.7 10^3/uL (3.5-10.8)
[2018-06-14 06:49] LABS: Albumin 2.2 g/dL (3.2-5.2); BUN/Creatinine Ratio 27.8 (8-20); Calcium 8.4 mg/dL (8.6-10.3); EGFR African American 33.2 (>60); EGFR Non-African American 27.5 (>60); Globulin 2.3 g/dL (2-4); Total Bilirubin 1.4 mg/dL (0.2-1.0); Total Protein 4.5 g/dL (6.4-8.9)
[2018-06-14] MEDS ORDERED: diPHENhydraMINE IV* 50 MG/ML 1 ml VIAL (BENADRYL) IV ONE (06:59)
[2018-06-14] MEDS: Hydroxychloroquine TAB* 200 MG PO SCH (07:27)
[2018-06-14] MEDS: Tamsulosin CAP* 0.4 MG PO SCH (07:27)
[2018-06-14] MEDS: Finasteride TAB* 5 MG PO SCH (07:27)
[2018-06-14] MEDS: amLODIPine TAB* 5 MG PO SCH (07:27)
[2018-06-14] MEDS: Pantoprazole TAB * 40 MG TAB PO SCH ×2 (07:27→21:09)
[2018-06-14] MEDS: methylPREDNISolone SOD SUCC* 1,000 MG in NS 0.9% 100 ML* 100 ML IVPB SCH (09:50)
[2018-06-14] MEDS ORDERED: Perflutren Lipid Microsphere* 3 ML VIAL ONE (10:22)
--- NOTE | 2018-06-14 11:43 | PN ---
Subjective Date of Service: 06/14/18 Interval History: Pt c/o diffuse joint pain worse in the neck Objective Active Medications: Acetaminophen (Tylenol Tab*) 650 mg PO Q6H PRN PRN Reason: pain/fever Amlodipine Besylate (Norvasc Tab*) 5 mg PO DAILY [facility] Last Admin: 06/14/18 07:27 Dose: 5 mg Finasteride (Proscar Tab*) 5 mg PO DAILY [facility] Last Admin: 06/14/18 07:27 Dose: 5 mg Hydroxychloroquine Sulfate (Plaquenil Tab*) 200 mg PO BID [facility] Last Admin: 06/14/18 07:27 Dose: 200 mg Cefazolin Sodium 1 gm/ Sodium (Chloride) 50 mls @ 200 mls/hr IVPB Q12H [facility] Last Admin: 06/14/18 01:13 Dose: 200 mls/hr Methylprednisolone Sodium Succinate 1,000 mg/ Sodium Chloride 100 mls @ 100 mls /hr IVPB DAILY [facility] Stop: 06/15/18 23:59 Last Admin: 06/14/18 09:50 Dose: 100 mls/hr Sodium Chloride (Ns 0.9% 1000 Ml) 1,000 mls @ 50 mls/hr IV .PER RATE [facility] Morphine Sulfate (Morphine 4 Mg/Ml Vial (1 Ml)) 1 mg IV Q1H PRN PRN Reason: SEVERE PAIN Last Admin: 06/13/18 22:42 Dose: 1 mg Pantoprazole Sodium (Protonix Tab*) 40 mg PO BID [facility] Last Admin: 06/14/18 07:27 Dose: 40 mg Tamsulosin HCl (Flomax Cap*) 0.4 mg PO DAILY [facility] Last Admin: 06/14/18 07:27 Dose: 0.4 mg Tramadol HCl (Ultram*) 50 mg PO Q12H PRN PRN Reason: PAIN Vital Signs - 8 hr 06/14/18 06/14/18 06/14/18 07:19 07:28 08:00 Temperature 98.6 F Pulse Rate 82 Respiratory 20 18 18 Rate Blood Pressure 147/62 (mmHg) O2 Sat by Pulse 97 Oximetry 06/14/18 08:26 Temperature Pulse Rate Respiratory 18 Rate Blood Pressure (mmHg) O2 Sat by Pulse Oximetry Oxygen Devices in Use Now: None Appearance: 73 yo m in nAD, but in significnat discomfort due to joint pain Eyes: No Scleral Icterus, PERRLA Ears/Nose/Mouth/Throat: NL Teeth, Lips, Gums, Mucous Membranes Moist Neck: NL Appearance and Movements; NL JVP, Trachea Midline Respiratory: Symmetrical Chest Expansion and Respiratory Effort, Clear to Auscultation Cardiovascular: NL Sounds; No Murmurs; No JVD, RRR Abdominal: NL Sounds; No Tenderness; No Distention Lymphatic: No Cervical Adenopathy Extremities: No Clubbing, Cyanosis, - - +2 pitting pedal edema b/l. diffuce joint pain and increasaed warmth over palpation of most of joints, including: elbows, wrist , knees back Skin: No Nodules or Sclerosis Neurological: Alert and Oriented x 3, - - limited ROM in most of joints due to pain Result Diagrams: 06/14/18 05:54 06/14/18 05:54 Microbiology and Other Data: Microbiology 06/13/18 13:04 Aerobic Blood Culture - Final Blood Venous Not Reportable Anaerobic Blood Culture - Final Not Reportable Blood Culture - Preliminary Blood MRSA/MSSA (PCR) - Final Mrsa Negative S.aureus Positive Assess/Plan/Problems-Billing Assessment: 73 yo M with h/o RA with recent URI and sinus infections x 3 months on 4 different antibiotics and steroid course presented with [facility] and was found to have pulmonary nodules at beginning of May 2018, discharged home and outpatient renal bx showing vasculitis formal report still pending. Started on PO steroids and his joint pain got severe to the point of limiting his ambulation. 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 Kelley and Krzysztof's consult Got rash on chest with initial Rituxan infusion, now resolved with Benadryl, pt will cont remaining infusion today. D/w Dr. Kelley-cont daily Solu Medrol x 3 days total at 1 gram (2) Rheumatoid arthritis Comment: worrisome exacerbation of difuse joint pain /increased warmth-to the point of pt having problems with feeding himself. will start Ultram for pain ( pt had hallucinations with oxycodone) cont Plaquenil for now Dr. Kelley consulted (3) Normocytic anemia Comment: iron studies suggestive of ACD (4) Pulmonary nodules/lesions, multiple Comment: due to vasculitis-see above (5) Troponin level elevated Comment: pt denies CP Echo shows EF 55%, mod MR and mod TR in 05/2018 suspect demand ischemia. appreciate DR. 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 Pt denies bleeding, no petechiae noted on exam. Hematology consult pending (7) Blood bacterial culture positive Comment: for MSSA -final identification pending On CEfazolin started on 06/13/18, suspect contamination (8) DVT prophylaxis Comment: no anticoagulants due to thombocytopenia, SCD's Status and Disposition: inpatient
[2018-06-14] MEDS: traMADol TAB* 50 MG PO PRN (12:05)
[2018-06-14] MEDS: NS 0.9% 1000 ML** 1,000 ML IV SCH (12:05)
[2018-06-14] MEDS ORDERED: Polyethyl Glycol/Propylene Gly OPHTH.SOLN BOTH EYES PRN (13:55)
--- NOTE | 2018-06-14 15:08 | ECHO ---
Patient: SRINIVASAN JC [facility] Rec#: [id number] : 1945 Date: 06/14/2018 Age: 73y Height: 170 cm / 66.9 in Weight: 69 kg / 152.1 lbs Sex: M BSA: 1.8 Room#: [facility] Admit Date#: 06/13/2018 Type: Inpatient Referring: JHONATAN BUNN P DE Reading: Alejandro Renner MD Station Jailer: Sobia Frausto RDCS CC: Tracy Dugan NP CC: Mike Chambers MD Transthoracic Echocardiogram Indication: Cardiomyopathy BP: 126/63 HR: 84 Rhythm: NSR Findings History: Kidney disease. s/p pacer insert,HTN,NSSVT,former smoker. This is a limited study in follow-up to complete echo 05/25/2018. Technical Comments: The study is technically difficult. HOB at 90 degrees for patient comfort. Definity used to enhance iamges. Completed at 1110. The study was technically limited due to the patient's inability to lay in the left lateral decubitus position. Left Ventricle: The left ventricular chamber size is normal. Left ventricular systolic function is at the lower limits of normal. The estimated ejection fraction is 50-55%. There is abnormal ventricular septal wall motion consistent with right ventricular pacemaker. Contrast: Definity was used to optimize study. A total of 3.5 ml used. Intravenous contrast was used to enhance endocardial border definition. Conclusions The study is technically difficult. HOB at 90 degrees for patient comfort. Definity used to enhance iamges. Completed at 1110. The left ventricular chamber size is normal. Left ventricular systolic function is at the lower limits of normal. The estimated ejection fraction is 50-55%. There is abnormal ventricular septal wall motion consistent with right ventricular pacemaker. No change from 05/25/18
--- NOTE | 2018-06-14 17:31 | PN ---
Subjective - Subjective Date of Service: 06/14/18 - chief complaint: microscopic polyangiitis History: Mr. Lopez still feels very weak although he denied pain (except with movement of his lower extremities). His voice comes and goes so he is whispering. Dyspnea is not worse than usual but he has had more generalized lower extremity edema. He is not able to mobilize as he generally feels weak. There is no joint swelling. He denied neck or jaw pain. Labs were noted. Hematology has been consulted per discussion with Dr. Uribe. 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 Pt denies bleeding, no petechiae noted on exam. Hematology consult pending Current Medications: Current Medications Acetaminophen (Tylenol Tab*) 650 mg PO Q6H PRN PRN Reason: pain/fever Amlodipine Besylate (Norvasc Tab*) 5 mg PO DAILY [facility] Last Admin: 06/14/18 07:27 Dose: 5 mg Carboxymethylcellulose/Glycerin (Refresh Optive Gel Eye Gel) 1 applic BOTH EYES BEDTIME [facility] Finasteride (Proscar Tab*) 5 mg PO DAILY [facility] Last Admin: 06/14/18 07:27 Dose: 5 mg Hydroxychloroquine Sulfate (Plaquenil Tab*) 200 mg PO BID [facility] Last Admin: 06/14/18 07:27 Dose: 200 mg Cefazolin Sodium 1 gm/ Sodium (Chloride) 50 mls @ 200 mls/hr IVPB Q12H [facility] Last Admin: 06/14/18 12:05 Dose: 200 mls/hr Methylprednisolone Sodium Succinate 1,000 mg/ Sodium Chloride 100 mls @ 100 mls /hr IVPB DAILY [facility] Stop: 06/15/18 23:59 Last Admin: 06/14/18 09:50 Dose: 100 mls/hr Sodium Chloride (Ns 0.9% 1000 Ml) 1,000 mls @ 50 mls/hr IV .PER RATE [facility] Last Admin: 06/14/18 12:05 Dose: 50 mls/hr Morphine Sulfate (Morphine 4 Mg/Ml Vial (1 Ml)) 1 mg IV Q1H PRN PRN Reason: SEVERE PAIN Last Admin: 06/13/18 22:42 Dose: 1 mg Pantoprazole Sodium (Protonix Tab*) 40 mg PO BID [facility] Last Admin: 06/14/18 07:27 Dose: 40 mg Polyethyl Glycol/Propylene Glycol (Lubricant Eye Drops) 1 drop BOTH EYES QID PRN PRN Reason: DRY EYE Tamsulosin HCl (Flomax Cap*) 0.4 mg PO DAILY [facility] Last Admin: 06/14/18 07:27 Dose: 0.4 mg Tramadol HCl (Ultram*) 50 mg PO Q12H PRN PRN Reason: PAIN Last Admin: 06/14/18 12:05 Dose: 50 mg - Review of Systems Constitutional Symptoms: Yes: Weakness, Fatigue, No: Weight Loss, Fever Dermatology: Normal: No, Rash: No, Skin Lesions: No HEENT: Yes Normal Eyes: Positive: Normal Thyroid: Positive: Normal Pulmonary: Positive: Shortness of Breath, Exercise Intolerance Cardiology: Positive: Swelling of Ankles, Edema Gastroenterology: Positive: Normal Musculoskeletal: Positive: Joint Stiffness Hematologic/Lymphatic: Positive: Anemia Neurology: Positive: Unexplained Weakness Psychiatry: Positive: Normal Allergic/Immunologic: Positive: Immunocompromise Home Medications: Home Medications Medication Instructions Recorded Confirmed Type Hydroxychloroquine TAB* [Plaquenil 200 mg PO BID 08/26/13 06/13/18 History TAB*] Tamsulosin HCl [Flomax] 0.4 mg PO DAILY 08/26/13 06/13/18 History Omeprazole 20 mg PO BID #60 capsule. 05/28/18 06/13/18 Rx amLODIPine TAB* [Norvasc 5 mg TAB*] 5 mg PO DAILY #30 tab 05/28/18 06/13/18 Rx predniSONE TAB* [Deltasone 20 MG 60 mg PO DAILY #90 tab 05/28/18 06/13/18 Rx TAB*] Finasteride 5 mg PO DAILY 06/01/18 06/13/18 History Allergies: Allergies Allergy/AdvReac Type Severity Reaction Status Date / Time Penicillins Allergy Hives/Diff. Verified 06/13/18 11:59 Breathing/I tching Objective - Vital Signs Vital Signs: Vital Signs 06/13/18 06/13/18 06/13/18 17:25 17:36 17:40 Temperature 98.3 F Pulse Rate 81 Respiratory 20 20 20 Rate Blood Pressure 145/61 (mmHg) O2 Sat by Pulse 100 Oximetry 06/13/18 06/13/18 06/13/18 18:24 19:26 20:00 Temperature 98.7 F Pulse Rate 68 Respiratory 20 24 16 Rate Blood Pressure 115/60 (mmHg) O2 Sat by Pulse 96 Oximetry 06/13/18 06/13/18 06/13/18 20:58 21:01 21:13 Temperature Pulse Rate 73 90 75 Respiratory Rate Blood Pressure 130/80 122/68 (mmHg) O2 Sat by Pulse 95 95 94 Oximetry 06/13/18 06/13/18 06/13/18 21:28 21:43 21:58 Temperature Pulse Rate 76 73 69 Respiratory Rate Blood Pressure 124/71 140/69 123/74 (mmHg) O2 Sat by Pulse 93 95 95 Oximetry 06/13/18 06/13/18 06/13/18 22:01 22:41 22:42 Temperature Pulse Rate 72 Respiratory 16 16 Rate Blood Pressure (mmHg) O2 Sat by Pulse 95 Oximetry 06/13/18 06/13/18 06/13/18 23:01 23:30 23:54 Temperature 97.7 F 98.2 F Pulse Rate 81 72 Respiratory 18 18 Rate Blood Pressure 110/61 (mmHg) O2 Sat by Pulse 97 97 Oximetry 06/14/18 06/14/18 06/14/18 01:30 01:53 03:15 Temperature 98.4 F Pulse Rate 65 Respiratory 16 16 16 Rate Blood Pressure 126/63 (mmHg) O2 Sat by Pulse 97 Oximetry 06/14/18 06/14/18 06/14/18 07:19 07:26 07:28 Temperature 98.6 F Pulse Rate 82 Respiratory 20 18 Rate Blood Pressure 147/62 138/68 (mmHg) O2 Sat by Pulse 97 Oximetry 06/14/18 06/14/18 06/14/18 07:42 07:56 08:00 Temperature Pulse Rate 93 71 75 Respiratory 18 Rate Blood Pressure 138/74 131/84 (mmHg) O2 Sat by Pulse 94 94 97 Oximetry 06/14/18 06/14/18 06/14/18 08:11 08:26 08:41 Temperature Pulse Rate 93 80 75 Respiratory 18 Rate Blood Pressure 150/84 130/75 164/79 (mmHg) O2 Sat by Pulse 96 96 97 Oximetry 06/14/18 06/14/18 06/14/18 08:56 09:00 09:11 Temperature Pulse Rate 89 86 88 Respiratory Rate Blood Pressure 169/75 160/84 (mmHg) O2 Sat by Pulse 95 96 95 Oximetry 06/14/18 06/14/18 06/14/18 09:26 09:41 09:56 Temperature Pulse Rate 89 94 90 Respiratory Rate Blood Pressure 136/78 161/79 157/84 (mmHg) O2 Sat by Pulse 94 96 96 Oximetry 06/14/18 06/14/18 06/14/18 10:01 10:11 10:26 Temperature Pulse Rate 87 84 Respiratory Rate Blood Pressure 141/74 159/69 (mmHg) O2 Sat by Pulse 95 94 Oximetry 06/14/18 06/14/18 06/14/18 10:41 10:56 11:01 Temperature Pulse Rate 77 93 84 Respiratory Rate Blood Pressure 152/73 147/81 (mmHg) O2 Sat by Pulse 94 94 95 Oximetry 06/14/18 06/14/18 06/14/18 11:11 11:26 12:00 Temperature Pulse Rate 82 85 92 Respiratory Rate Blood Pressure 149/73 129/77 (mmHg) O2 Sat by Pulse 95 94 94 Oximetry 06/14/18 06/14/18 06/14/18 12:05 12:16 13:00 Temperature 100.1 F Pulse Rate 89 Respiratory 18 Rate Blood Pressure (mmHg) O2 Sat by Pulse 95 Oximetry 06/14/18 06/14/18 13:47 15:49 Temperature 98.5 F Pulse Rate 85 Respiratory 16 24 Rate Blood Pressure 131/66 (mmHg) O2 Sat by Pulse 97 Oximetry - Intake and Output Intake and Output: Intake & Output 06/12/18 06/13/18 06/14/18 06/15/18 06:59 06:59 06:59 06:59 Intake Total 608 1240 Output Total 1550 Balance -942 1240 Weight 158 lb 4.8 oz Intake: IV Fluids 75 350 ABX - CEFAZOLIN 50 NS (0.9%) 20 meq KCL 25 Rituxiamb 300 IVPB 53 50 ABX - CEFAZOLIN 53 50 Oral 480 840 Output: Dexter 1550 ADLs: Meal Record Start: 06/13/18 15: 46 Freq: DAILY@0900,1400,1800 Status: Active Protocol: Created 06/13/18 15:46 System (Rec: 06/13/18 15:46 System [id number]) Document 06/13/18 20:02 [id number] (Rec: 06/13/18 20:02 [id number] [id number]) Document 06/14/18 09:00 [id number] (Rec: 06/14/18 10:46 [id number]) Document 06/14/18 13:36 [id number] (Rec: 06/14/18 13:37 [id number]) Intake and Output Start: 06/13/18 11: 59 Freq: Status: Active Protocol: Created 06/13/18 11:59 System (Rec: 06/13/18 11:59 System [id number]) Intake and Output Start: 06/13/18 15: 46 Freq: DAILY@0600,1400,2200 Status: Active Protocol: Created 06/13/18 15:46 System (Rec: 06/13/18 15:46 System [email or web address]) Document 06/13/18 22:00 [id number] (Rec: 06/13/18 22:45 [id number]) Document 06/14/18 06:00 [id number] (Rec: 06/14/18 07:25 [id number]) Document 06/14/18 13:37 [id number] (Rec: 06/14/18 13:38 [id number]) - Physical Exam General Physical Exam Comment: No acute distress. Appears generally weak. Edematous. Very limited mobility General: Yes Anemia Head: Yes Normocephalic Thyroid Function: Clinically Euthyroid Lungs and Chest: Yes: Chest Expansion Full, Chest Expansion Symetrica, Percussion Note Resonant Heart Rate and Rhythm: Regular JVP: Not Elevated [place] Beat: Non Displaced Additional Cardiovascular: Yes: [place] Beat not Displaced Abdominal Exam: Yes: Soft - Rheumotological System Joints: Range of Motion - Mild tenderness bilateral ankles and knees and shoulders Additional Musculoskeletal: Muscle Tenderness - Extremities Feet Sensation: Abnormal: Sensory Limbs: Abnormal Power - 4/5 strength quads and biceps - Neuro Orientation: A/O x3 Psychiatric: Normal Speech: Normal - Hoarse and whispery Results - Results Lab Results: Laboratory Results - last 24 hr 06/13/18 06/13/18 06/13/18 13:03 13:03 18:52 WBC RBC Hgb Hct MCV MCH MCHC RDW Plt Count MPV Neut % (Auto) Lymph % (Auto) Carlton % (Auto) Eos % (Auto) Baso % (Auto) Absolute Neuts (auto) Absolute Lymphs (auto) Absolute Monos (auto) Absolute Eos (auto) Absolute Basos (auto) Absolute Nucleated RBC Nucleated RBC % Hem Pathologist Commnt Sodium Potassium Chloride Carbon Dioxide Anion Gap BUN Creatinine Est GFR ( Amer) Est GFR (Non-Af Amer) BUN/Creatinine Ratio Glucose Calcium Total Bilirubin AST ALT Alkaline Phosphatase Lactate Dehydrogenase 225 Troponin I 0.46 H* C-Reactive Protein 233.45 H Total Protein Albumin Globulin Albumin/Globulin Ratio 06/13/18 06/14/18 06/14/18 22:27 05:54 05:54 WBC 4.7 RBC 3.10 L Hgb 8.9 L Hct 26 L MCV 85 MCH 29 MCHC 34 RDW 20 H Plt Count 25 L MPV 8.4 Neut % (Auto) 94.9 Lymph % (Auto) 1.5 Carlton % (Auto) 1.9 Eos % (Auto) 1.6 Baso % (Auto) 0.1 Absolute Neuts (auto) 4.4 Absolute Lymphs (auto) 0.1 L Absolute Monos (auto) 0.1 Absolute Eos (auto) 0.1 Absolute Basos (auto) 0 Absolute Nucleated RBC 0 Nucleated RBC % 0 Hem Pathologist Commnt Sodium 140 Potassium 4.0 Chloride 110 Carbon Dioxide 21 L Anion Gap 9 BUN 65 H Creatinine 2.34 H Est GFR ( Amer) 33.2 Est GFR (Non-Af Amer) 27.5 BUN/Creatinine Ratio 27.8 H Glucose 168 H Calcium 8.4 L Total Bilirubin 1.40 H AST 15 ALT 19 Alkaline Phosphatase 62 Lactate Dehydrogenase Troponin I 0.42 H* C-Reactive Protein Total Protein 4.5 L Albumin 2.2 L Globulin 2.3 Albumin/Globulin Ratio 1.0 Assessment - Problem List Assessment: Patient Problems Blood bacterial culture positive (Acute) Microscopic polyangiitis (Acute) Thrombocytopenia (Acute) MATT (acute kidney injury) (Acute) Bradycardia (Acute) DVT prophylaxis (Acute) Normocytic anemia (Acute) Pulmonary nodules/lesions, multiple (Acute) Rheumatoid arthritis (Acute) Troponin level elevated (Acute) Plan: Microscopic Polyangiitis: Would continue IV Solumedrol high dose for a total of 3 to 5 days then 1mg/ kg Solumedrol IV S/p Rituximab. Renal insufficiency: He is edematous. Will need to continue follow serum creatinine closely. Thrombocytopenia: per hematology. Positive blood cultures: a contaminant? Follow up repeat cultures. Generalized weakness. He will need extensive rehab both bedside and beyond as he recovers from this illness Impaired cardiac function[facility]: Yes
[2018-06-14 18:49] LABS: Activated Partial Thrombo Time 24.2 seconds (26.0-36.3); Fibrinogen 552.9 mg/dL (110.8-404.3); INR 1.44 (0.82-1.09)
[2018-06-14 19:23] LABS: Schistocytes PRESENT
[2018-06-14] MEDS: Morphine 4 MG/ML VIAL (1 ml) 4 MG/ML VIAL IV PRN (21:09)
[2018-06-14] MEDS: Carboxymethylcellulose/Glyceri 10 ML OPHTH.GEL lubricant eye gel BOTH EYES SCH (21:10)
[2018-06-14 22:07] LABS: Platelet Count 18 10^3/ul (150-450)
--- NOTE | 2018-06-14 22:58 | CONS ---
CONSULTATION REPORT: DATE OF CONSULT: 06/14/18 REASON FOR CONSULT: Anemia and thrombocytopenia. HISTORY OF PRESENT ILLNESS: Mr. Lopez is a 73-year-old male with longstanding history of rheumatoid arthritis and followed by Dr. Kelley. He has generally been very healthy until approximately 4 months ago when he started to have sinus infections. He had been down in [place] for several months and had multiple sinus infections in a row. Every time, he was treated with antibiotics and prednisone and consistently felt better. He had a sinus infection towards the end of April and was started on antibiotics and prednisone , which again improved his symptoms. He came to [place] and saw his [place] physician but was about to take a 14-day trip to the [facility]. He was given a course of steroids for traveling, and during the trip he was able to ambulate 2 to 3 hours a day and generally felt well. However, coming back to the [place] as soon as he stopped taking prednisone, his symptoms increased significantly. He developed a low-grade fever as well as increasing shortness of breath and fatigue. He was admitted [place] [facility] [place]25[place] to 05/28 for SOB. He had extensive evaluation at that time including a CT scan that showed mild splenomegaly, multiple pulmonary nodules. He had new renal insufficiency with a creatinine on 02/25/18 of 2.26 up from a baseline of 1.12 to 1.47. Lung biopsy showed inflammatory changes. He had an elevated rheumatoid factor of 16, negative ALTON, and ESR of 10. 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 After hydration, his renal function improved partially and he was discharged home on prednisone 60 mg daily with plans for renal biopsy. The renal biopsy was done 1 week ago. 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 After the biopsy, his prednisone was dropped to 50 mg but he then he deteriorated significantly. He developed severe diffuse joint pain to the point where he could not walk even 1 or 2 steps. He had hoarse voice in early May that improved and then returned and he again is feeling very short of breath. He was admitted on 06/13/18. On admission, he had a creatinine elevated again to 2.33 with repeat at 2.34, he has a hemoglobin of 8.9, unchanged from 8.9 on and 8.4 on 05/27/18 but down from a baseline of 13 as recently as 2018. He has normal white count, normal differential and a platelet count of 25,000 yesterday, down from 42,000 on 06/13/18 and a baseline of 200,000 to 260,000. Since admission, he was given pulse steroids with 1000 mg of Solu-Medrol and rituximab. He is feeling better today after the steroids and rituximab but remains well below baseline. PAST MEDICAL HISTORY: 1. Luna's vasculitis. 2. BPH, on Flomax. 3. GERD. 4. High blood pressure. 5. Rheumatoid arthritis, treated with Plaquenil. 6. BPH, treated with Avodart. 7. Joint pains in the past. PAST SURGICAL HISTORY: None significant. ALLERGIES: PENICILLIN. FAMILY HISTORY: Vascular disease and coronary artery disease, no other malignancy. No significant immune disease. 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 Smoked 20 years up to 2 packs a day , but quit over 30 years ago. Drinks 2 alcoholic beverages per week. He is and his is the primary support. REVIEW OF SYSTEMS: He is very fatigued, rarely talking, has a hoarse voice. He says he is very short of breath but denies chest pain or palpitations. He is not eating much of anything. Urine output is down. He had some diarrhea over the past month. Urination: Decreased stream but continues to urinate regularly. PHYSICAL EXAM: A 73-year-old, in moderate distress. Temperature 98.5 which is down, BP 131/66, satting 97%, pulse 85, respirations 24. HEENT: Eyes sunk, cachectic. Oral mucosa dry but no lesions. Nodes: No supraclavicular, axillary, inguinal lymphadenopathy. Lungs: Clear to auscultation. Heart: Tachypneic, often double beats, regular, S1, S2. Abdomen: No palpable hepatosplenomegaly. Mild abdominal wall edema. No inguinal lymphadenopathy. Extremities: +1 edema, cold to the touch. DIAGNOSTIC STUDIES/LAB DATA: Hemoglobin 8.9; MCV 85; platelets 25,000, down from 49,000; white count 4.7. He has a D-dimer over 1050 on 05/25/18. Normal PT, PTT. Creatinine is 2.34. Urinalysis: +2 blood, +3 white cells, ferritin 1149 with a sat of 85% and his magnesium is a little bit low at 1.6. CT scan: Mild splenomegaly, otherwise no lymphadenopathy. Review of the manual blood film showed scattered schistocytes and helmet cells, +1, generally small platelets, inflammatory changes and neutrophils but no evidence of early blasts or leukemia. ASSESSMENT AND PLAN: A 73-year-old male with fairly rapid progression of thrombocytopenia over past several days and anemia over the past month in the setting of immune mediated acute glomerulonephritis. He does not appear to have significant hemolysis based on labs or review of the blood film making a microangiopathic process unlikely. I suspect a combination of consumption and reduced marrow production of platelets and RBC. Differential diagnosis includes immune suppression of marrow, reduced marrow reserve as an independent process, consumption through immune inflammatory processed, may have low level of microangiopathic consumption. Platelet function appears intact, not actively bleeding. 1. We will send SPEP, lupus anticoagulant, haptoglobin, methyl malonic acid. 2. Withhold transfusion at this time, could transfuse if platelet count under 20,000. If transfusion needed, response will help indicate degree of consumption. 3. 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 4. Progressive cytopenia, could consider bone marrow biopsy. [id number]/CPS #: [id number] [facility]
[2018-06-15] MEDS: ceFAZolin 1 GM ADVAN(*) 1 GM in NS 0.9% 50 ML* 50 ML IVPB SCH ×2 (00:37→12:26)
[2018-06-15 03:27] LABS: Urine Appearance Cloudy; Urine Bacteria Absent (Absent); Urine Bilirubin Negative (Negative); Urine Blood 3+ (Negative); Urine Color Yellow; Urine Glucose 1+(50 mg/dL) (Negative); Urine Ketones Negative (Negative); Urine Nitrite Negative (Negative); Urine Protein 2+(100 mg/dL) (Negative); Urine Red Blood Cell 3+(>10/hpf) (Absent); Urine Specific Gravity 1.016 (1.010-1.030); Urine Squamous Epithelial Cell Present (Absent); Urine Urobilinogen Negative (Negative); Urine White Blood Cell 2+(11-20/hpf) (Absent)
[2018-06-15] MEDS: traMADol TAB* 50 MG PO PRN (04:56)
[2018-06-15 06:30] LABS: Hematocrit 25 % (36-46); Hemoglobin 8.7 g/dL (14.0-18.0); Mean Corpuscular HGB Conc 34 g/dL (31-36); Mean Corpuscular Hemoglobin 29 pg (27-31); Mean Corpuscular Volume 85 fL (80-94); Mean Platelet Volume 9.7 fL (7.4-10.4); Red Cell Distribution Width 20 % (10.5-15); White Blood Count 3.4 10^3/uL (3.5-10.8)
[2018-06-15 06:31] LABS: Platelet Count 16 10^3/uL (150-450)
[2018-06-15 07:04] LABS: BUN/Creatinine Ratio 35.4 (8-20); Calcium 8.3 mg/dL (8.6-10.3); EGFR African American 34.1 (>60); EGFR Non-African American 28.2 (>60)
[2018-06-15 07:10] LABS: Corrected Retic Count 0.5 % (0.5-1.5); Hematocrit for Retic CNT 27 % (36-46); Immature Retic Fraction 0.25; RBC Retic Count 3.14 10^6/uL (4.18-5.48)
[2018-06-15] MEDS ORDERED: Magnesium Sulfate 1 GM IV* 1 GM/100 ML BAG IV ONE (08:45)
[2018-06-15] MEDS: NS 0.9% 1000 ML** 1,000 ML IV SCH (09:38)
[2018-06-15] MEDS: amLODIPine TAB* 5 MG PO SCH (09:39)
[2018-06-15] MEDS: Pantoprazole TAB * 40 MG TAB PO SCH ×2 (09:39→20:16)
[2018-06-15] MEDS: Finasteride TAB* 5 MG PO SCH (09:39)
[2018-06-15] MEDS: Tamsulosin CAP* 0.4 MG PO SCH (09:39)
--- NOTE | 2018-06-15 09:39 | PN ---
Subjective Date of Service: 06/15/18 Interval History: On telem pt had occasional short lived bouts of sinus tachy in 120's. asymptomatic. Feels the same: everything hurts. Ate breakfast. Seen with his RN by the bedside Objective Active Medications: Acetaminophen (Tylenol Tab*) 650 mg PO Q6H PRN PRN Reason: pain/fever Amlodipine Besylate (Norvasc Tab*) 5 mg PO DAILY [facility] Last Admin: 06/14/18 07:27 Dose: 5 mg Carboxymethylcellulose/Glycerin (Refresh Optive Gel Eye Gel) 1 applic BOTH EYES BEDTIME [facility] Last Admin: 06/14/18 21:10 Dose: 1 applic Finasteride (Proscar Tab*) 5 mg PO DAILY [facility] Last Admin: 06/14/18 07:27 Dose: 5 mg Cefazolin Sodium 1 gm/ Sodium (Chloride) 50 mls @ 200 mls/hr IVPB Q12H [facility] Last Admin: 06/15/18 00:37 Dose: 200 mls/hr Methylprednisolone Sodium Succinate 1,000 mg/ Sodium Chloride 100 mls @ 100 mls /hr IVPB DAILY [facility] Stop: 06/15/18 23:59 Last Admin: 06/14/18 09:50 Dose: 100 mls/hr Sodium Chloride (Ns 0.9% 1000 Ml) 1,000 mls @ 50 mls/hr IV .PER RATE [facility] Last Admin: 06/14/18 12:05 Dose: 50 mls/hr Morphine Sulfate (Morphine 4 Mg/Ml Vial (1 Ml)) 1 mg IV Q1H PRN PRN Reason: SEVERE PAIN Last Admin: 06/14/18 21:09 Dose: 1 mg Pantoprazole Sodium (Protonix Tab*) 40 mg PO BID [facility] Last Admin: 06/14/18 21:09 Dose: 40 mg Polyethyl Glycol/Propylene Glycol (Lubricant Eye Drops) 1 drop BOTH EYES QID PRN PRN Reason: DRY EYE Tamsulosin HCl (Flomax Cap*) 0.4 mg PO DAILY [facility] Last Admin: 06/14/18 07:27 Dose: 0.4 mg Tramadol HCl (Ultram*) 50 mg PO Q12H PRN PRN Reason: PAIN Last Admin: 06/15/18 04:56 Dose: 50 mg Vital Signs - 8 hr 06/15/18 06/15/18 06/15/18 03:12 04:56 08:00 Temperature 97.8 F Pulse Rate 66 Respiratory 18 18 18 Rate Blood Pressure 132/60 (mmHg) O2 Sat by Pulse 97 Oximetry 06/15/18 08:20 Temperature 97.3 F Pulse Rate 61 Respiratory 18 Rate Blood Pressure 139/68 (mmHg) O2 Sat by Pulse 97 Oximetry Oxygen Devices in Use Now: None Appearance: 73 yo M in nAD, AAOx3 Eyes: No Scleral Icterus, PERRLA Ears/Nose/Mouth/Throat: NL Teeth, Lips, Gums, Mucous Membranes Moist Neck: NL Appearance and Movements; NL JVP, Trachea Midline Respiratory: Symmetrical Chest Expansion and Respiratory Effort, Clear to Auscultation Cardiovascular: NL Sounds; No Murmurs; No JVD, RRR Abdominal: NL Sounds; No Tenderness; No Distention Lymphatic: No Cervical Adenopathy Extremities: No Clubbing, Cyanosis, - - +2 pitting dedal edema b/l Skin: No Nodules or Sclerosis Neurological: Alert and Oriented x 3, - - decreased ROM in large joints due to pain. Joints appear to be leww warm to touch today, no skin erythema noted Result Diagrams: 06/15/18 06:01 06/15/18 06:01 Microbiology and Other Data: Microbiology 06/13/18 13:04 Aerobic Blood Culture - Final Blood Venous Not Reportable Anaerobic Blood Culture - Final Not Reportable Blood Culture - Preliminary Blood MRSA/MSSA (PCR) - Final Mrsa Negative S.aureus Positive Assess/Plan/Problems-Billing Assessment: 73 yo M with h/o RA with recent URI and sinus infections x 3 months on 4 different antibiotics and steroid course presented with [facility] and was found to have pulmonary nodules at beginning of May 2018, discharged home and outpatient renal bx showing vasculitis formal report still pending. Started on PO steroids and his joint pain got severe to the point of limiting his ambulation. 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 He will need extended rehab Cardiac function seems mildly impaired on his echo; held Plaquenil Dr. Kelley consulted (3) Normocytic anemia Comment: iron studies suggestive of ACD (4) Pulmonary nodules/lesions, multiple Comment: due to vasculitis-see above (5) Troponin level elevated Comment: pt denies CP Echo shows EF 55%, mod MR and mod TR in 05/2018 suspect demand ischemia. appreciate DR. 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 Pt denies bleeding, no petechiae noted on exam. Hematology consult appreciated. will transfuse Plt today (7) Blood bacterial culture positive Comment: for MSSA -ID consulted, but no full ID coverage now. May need transfer. Pt has a pacer in place On Cefazolin started on 06/13/18 (8) Pancytopenia Comment: hematology consulted, may need bone marrow bx (9) DVT prophylaxis Comment: no anticoagulants due to thombocytopenia, SCD's Status and Disposition: inpatient
[2018-06-15] MEDS: methylPREDNISolone SOD SUCC* 1,000 MG in NS 0.9% 100 ML* 100 ML IVPB SCH (09:49)
[2018-06-15 14:50] LABS: SS-A/Ro Antibody <0.2 U; SS-B/La Antibody <0.2 U; Sm (Smith) IgG Antibody <0.2 U
[2018-06-15] MEDS: Nystatin SUSPENSION* 100000 UNITS/ML 5 ML UDC PO SCH ×2 (16:53→20:18)
[2018-06-15 17:57] LABS: Complement C3 87 mg/dL (75 - 175)
[2018-06-15] MEDS ORDERED: Metoprolol Tartrate IV* 1 MG/ML 5 ML VIAL IV ONE (18:21)
[2018-06-15] MEDS ORDERED: Metoprolol Tartrate TAB* 25 MG PO ONE (18:21)
--- NOTE | 2018-06-15 18:36 | PN ---
Subjective - Subjective Date of Service: 06/15/18 - chief complaint: microscopic polyangiitis History: He is feeling in better spirits; he is sitting up and eating. He is able to move the left side better than before; the right side in his feet and legs and arms is still restricted which he attributed to edema. Voice is improving Active Problems: Active Problems Blood bacterial culture positive (Acute) R78.81 for MSSA -ID consulted, but no full ID coverage now. May need transfer. 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 Pt denies bleeding, no petechiae noted on exam. Hematology consult appreciated. will transfuse Plt today Current Medications: Current Medications Acetaminophen (Tylenol Tab*) 650 mg PO Q6H PRN PRN Reason: pain/fever Carboxymethylcellulose/Glycerin (Refresh Optive Gel Eye Gel) 1 applic BOTH EYES BEDTIME [facility] Last Admin: 06/14/18 21:10 Dose: 1 applic Finasteride (Proscar Tab*) 5 mg PO DAILY [facility] Last Admin: 06/15/18 09:39 Dose: 5 mg Cefazolin Sodium 1 gm/ Sodium (Chloride) 50 mls @ 200 mls/hr IVPB Q12H [facility] Last Admin: 06/15/18 12:26 Dose: 200 mls/hr Methylprednisolone Sodium Succinate 1,000 mg/ Sodium Chloride 100 mls @ 100 mls /hr IVPB DAILY [facility] Stop: 06/15/18 23:59 Last Admin: 06/15/18 09:49 Dose: 100 mls/hr Sodium Chloride (Ns 0.9% 1000 Ml) 1,000 mls @ 50 mls/hr IV .PER RATE [facility] Last Admin: 06/15/18 09:38 Dose: 50 mls/hr Metoprolol Tartrate (Lopressor Iv*) 5 mg IV ONCE ONE Stop: 04/23/19 18:22 Metoprolol Tartrate (Lopressor Tab*) 25 mg PO ONCE ONE Stop: 06/15/18 18:22 Morphine Sulfate (Morphine 4 Mg/Ml Vial (1 Ml)) 1 mg IV Q1H PRN PRN Reason: SEVERE PAIN Last Admin: 06/14/18 21:09 Dose: 1 mg Nystatin (Nystatin Suspension*) 200,000 units PO QID [facility] Last Admin: 06/15/18 16:53 Dose: 200,000 units Pantoprazole Sodium (Protonix Tab*) 40 mg PO BID [facility] Last Admin: 06/15/18 09:39 Dose: 40 mg Polyethyl Glycol/Propylene Glycol (Lubricant Eye Drops) 1 drop BOTH EYES QID PRN PRN Reason: DRY EYE Tamsulosin HCl (Flomax Cap*) 0.4 mg PO DAILY [facility] Last Admin: 06/15/18 09:39 Dose: 0.4 mg Tramadol HCl (Ultram*) 50 mg PO Q12H PRN PRN Reason: PAIN Last Admin: 06/15/18 04:56 Dose: 50 mg - Review of Systems Constitutional Symptoms: Yes: Weakness, Fatigue, No: Weight Loss, Fever, Unexplained Falls Dermatology: Normal: No HEENT: Yes Normal Eyes: Positive: Normal Thyroid: Positive: Normal Pulmonary: Positive: Exercise Intolerance Cardiology: Positive: Swelling of Ankles Gastroenterology: Positive: Normal Musculoskeletal: Positive: Joint Stiffness, Arthritis Hematologic/Lymphatic: Positive: Anemia Neurology: Positive: Unexplained Weakness Psychiatry: Positive: Normal Allergic/Immunologic: Positive: Immunocompromise Home Medications: Home Medications Medication Instructions Recorded Confirmed Type Hydroxychloroquine TAB* [Plaquenil 200 mg PO BID 08/26/13 06/13/18 History TAB*] Tamsulosin HCl [Flomax] 0.4 mg PO DAILY 08/26/13 06/13/18 History Omeprazole 20 mg PO BID #60 capsule. 05/28/18 06/13/18 Rx amLODIPine TAB* [Norvasc 5 mg TAB*] 5 mg PO DAILY #30 tab 05/28/18 06/13/18 Rx predniSONE TAB* [Deltasone 20 MG 60 mg PO DAILY #90 tab 05/28/18 06/13/18 Rx TAB*] Finasteride 5 mg PO DAILY 06/01/18 06/13/18 History Allergies: Allergies Allergy/AdvReac Type Severity Reaction Status Date / Time Penicillins Allergy Hives/Diff. Verified 06/13/18 11:59 Breathing/I tching Objective - Vital Signs Vital Signs: Vital Signs 06/14/18 06/14/18 06/14/18 19:11 20:00 21:09 Temperature 97.9 F Pulse Rate 76 Respiratory 24 20 20 Rate Blood Pressure 136/55 (mmHg) O2 Sat by Pulse 96 Oximetry 06/14/18 06/15/18 06/15/18 23:42 00:45 03:12 Temperature 97.4 F 97.8 F Pulse Rate 124 66 Respiratory 24 20 18 Rate Blood Pressure 127/56 132/60 (mmHg) O2 Sat by Pulse 96 97 Oximetry 06/15/18 06/15/18 06/15/18 04:56 06:56 08:00 Temperature Pulse Rate Respiratory 18 18 18 Rate Blood Pressure (mmHg) O2 Sat by Pulse Oximetry 06/15/18 06/15/18 06/15/18 08:20 11:05 11:31 Temperature 97.3 F 98.0 F Pulse Rate 61 86 74 Respiratory 18 18 Rate Blood Pressure 139/68 122/70 128/77 (mmHg) O2 Sat by Pulse 97 96 95 Oximetry 06/15/18 06/15/18 06/15/18 11:54 14:28 15:43 Temperature 97.5 F 98.2 F Pulse Rate 69 85 62 Respiratory 22 20 20 Rate Blood Pressure 140/58 138/56 124/61 (mmHg) O2 Sat by Pulse 97 98 Oximetry - Intake and Output Intake and Output: Intake & Output 06/13/18 06/14/18 06/15/18 06/16/18 06:59 06:59 06:59 06:59 Intake Total 608 2610 850 Output Total 1550 450 880 Balance -942 2160 -30 Weight 158 lb 4.8 oz Intake: IV Fluids 75 800 ABX - CEFAZOLIN 50 NS (0.9%) 450 NS (0.9%) 20 meq KCL 25 Rituxiamb 300 IVPB 53 50 150 ABX - CEFAZOLIN 53 50 50 Methylprednisolone 100 Oral 480 1760 700 Output: Urine 250 480 Dexter 1550 200 400 Other: # Bowel Movements 0 ADLs: Meal Record Start: 06/13/18 15: 46 Freq: DAILY@0900,1400,1800 Status: Active Protocol: Created 06/13/18 15:46 System (Rec: 06/13/18 15:46 System [id number]) Document 06/13/18 20:02 [id number] (Rec: 06/13/18 20:02 [id number] [id number]) Document 06/14/18 09:00 [id number] (Rec: 06/14/18 10:46 [id number] TELE-C03) Document 06/14/18 13:36 [id number] (Rec: 06/14/18 13:37 [id number] TELE-C03) Document 06/14/18 18:00 [id number] (Rec: 06/14/18 22:12 [id number] TELE-C08) Document 06/15/18 09:00 [id number] (Rec: 06/15/18 12:56 [id number] TELE-C03) Document 06/15/18 14:00 [id number] (Rec: 06/15/18 14:55 [id number] TELE-C03) Intake and Output Start: 06/13/18 11: 59 Freq: Status: Active Protocol: Created 06/13/18 11:59 System (Rec: 06/13/18 11:59 System [id number]) Intake and Output Start: 06/13/18 15: 46 Freq: DAILY@0600,1400,2200 Status: Active Protocol: Created 06/13/18 15:46 System (Rec: 06/13/18 15:46 System [id number]) Document 06/13/18 22:00 [id number] (Rec: 06/13/18 22:45 [id number] TELE-C01) Document 06/14/18 06:00 [id number] (Rec: 06/14/18 07:25 [id number] TELE-C03) Document 06/14/18 13:37 [id number] (Rec: 06/14/18 13:38 [id number] TELE-C03) Document 06/14/18 22:00 [id number] (Rec: 06/14/18 22:18 [id number] TELE-C08) Document 06/15/18 06:10 [id number] (Rec: 06/15/18 06:11 [id number] TELE-C07) Document 06/15/18 14:00 [id number] (Rec: 06/15/18 14:55 [id number] [id number]) - Physical Exam General Physical Exam Comment: No acute distress; sitting up; able to converse easily General: Yes Anemia Eye Exam: bilateral: PERRLA Head: Yes Normocephalic Thyroid Function: Clinically Euthyroid Lungs and Chest: Yes: Chest Expansion Full, Chest Expansion Symetrica, Percussion Note Resonant Heart Rate and Rhythm: Irregular JVP: Not Elevated [place] Beat: Non Displaced Additional Cardiovascular: Yes: [place] Beat not Displaced, Normal Heart Sounds, Pedal Edema Abdominal Exam: Yes: Soft - Rheumotological System Joints: Joint Swelling - right ankle and knee and arm region is swollen, left ankle is also slightly swollen; seems to be more from edema than joint synovitis - Extremities Feet Sensation: Abnormal: Sensory - Neuro Psychiatric: Normal Speech: Normal Results - Results Lab Results: Laboratory Results - last 24 hr 06/13/18 06/13/18 06/14/18 18:52 18:52 18:17 WBC RBC RBC (Retic) Hgb Hct HCT (Retic) MCV MCH MCHC RDW MPV Schistocytes Present Retic Count, Calc Corrected Retic Count Retic Shift Factor Retic Production Index Immature Retic Fraction Mean Retic Volume Plt Count 18 L* INR (Anticoag Therapy) 1.44 H APTT 24.2 L Fibrinogen 552.9 H D-Dimer, Quantitative > 1050 H Sodium Potassium Chloride Carbon Dioxide Anion Gap BUN Creatinine Est GFR ( Amer) Est GFR (Non-Af Amer) BUN/Creatinine Ratio Glucose Calcium Magnesium Lactate Dehydrogenase Urine Color Urine Appearance Urine pH Ur Specific [place] Urine Protein Urine Ketones Urine Blood Urine Nitrate Urine Bilirubin Urine Urobilinogen Ur Leukocyte Esterase Urine WBC (Auto) Urine RBC (Auto) Ur Squamous Epith Cells Urine Bacteria Urine Glucose SS-A/Ro Antibody <0.2 SS-B/La Antibody <0.2 Sm ([place]) IgG Ab, Quant <0.2 Complement C3 87 Complement C4 31 Tot Complement (CH50) 34 Blood Type Antibody Screen 06/15/18 06/15/18 06/15/18 03:01 06:01 06:01 WBC 3.4 L RBC 3.00 L RBC (Retic) Hgb 8.7 L Hct 25 L HCT (Retic) MCV 85 MCH 29 MCHC 34 RDW 20 H MPV 9.7 Schistocytes Retic Count, Calc Corrected Retic Count Retic Shift Factor Retic Production Index Immature Retic Fraction Mean Retic Volume Plt Count 16 L* INR (Anticoag Therapy) APTT Fibrinogen D-Dimer, Quantitative Sodium 139 Potassium 4.0 Chloride 112 H Carbon Dioxide 20 L Anion Gap 7 BUN 81 H Creatinine 2.29 H Est GFR ( Amer) 34.1 Est GFR (Non-Af Amer) 28.2 BUN/Creatinine Ratio 35.4 H Glucose 194 H Calcium 8.3 L Magnesium 2.0 Lactate Dehydrogenase Urine Color Yellow Urine Appearance Cloudy Urine pH 5.0 Ur Specific [place] 1.016 Urine Protein 2+(100 mg/dl) A Urine Ketones Negative Urine Blood 3+ A Urine Nitrate Negative Urine Bilirubin Negative Urine Urobilinogen Negative Ur Leukocyte Esterase Negative Urine WBC (Auto) 2+(11-20/hpf) A Urine RBC (Auto) 3+(>10/hpf) A Ur Squamous Epith Cells Present A Urine Bacteria Absent Urine Glucose 1+(50 mg/dl) A SS-A/Ro Antibody SS-B/La Antibody Sm ([place]) IgG Ab, Quant Complement C3 Complement C4 Tot Complement (CH50) Blood Type Antibody Screen 06/15/18 06/15/18 06/15/18 06:01 06:51 15:30 WBC RBC RBC (Retic) 3.14 L Hgb Hct HCT (Retic) 27 L MCV MCH MCHC RDW MPV Schistocytes Retic Count, Calc 0.8 Corrected Retic Count 0.5 Retic Shift Factor 2.0 Retic Production Index 0.30 Immature Retic Fraction 0.25 Mean Retic Volume 83.1 Plt Count INR (Anticoag Therapy) APTT Fibrinogen D-Dimer, Quantitative Sodium Potassium Chloride Carbon Dioxide Anion Gap BUN Creatinine Est GFR ( Amer) Est GFR (Non-Af Amer) BUN/Creatinine Ratio Glucose Calcium Magnesium Lactate Dehydrogenase 214 Urine Color Urine Appearance Urine pH Ur Specific [place] Urine Protein Urine Ketones Urine Blood Urine Nitrate Urine Bilirubin Urine Urobilinogen Ur Leukocyte Esterase Urine WBC (Auto) Urine RBC (Auto) Ur Squamous Epith Cells Urine Bacteria Urine Glucose SS-A/Ro Antibody SS-B/La Antibody Sm ([place]) IgG Ab, Quant Complement C3 Complement C4 Tot Complement (CH50) Blood Type O Positive Antibody Screen Negative Assessment - Problem List Assessment: Patient Problems Blood bacterial culture positive (Acute) Microscopic polyangiitis (Acute) Pancytopenia (Acute) Thrombocytopenia (Acute) MATT (acute kidney injury) (Acute) Bradycardia (Acute) DVT prophylaxis (Acute) Normocytic anemia (Acute) Pulmonary nodules/lesions, multiple (Acute) Rheumatoid arthritis (Acute) Troponin level elevated (Acute) Plan: 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 Serum creatinine seems to have stabilized although his platelets remain low. In terms of his RA, Rituximab will help both his RA and his current vasculitis. I spoke with hospitalist: I recommend continuing pulse Solumedrol at least one more day then we can taper to 80mg IV every 8 hours. He will need to continue Ritixuximab weekly for 4 weeks. Plasma exchange is being considered Coordination of Care: Yes - Health Maintenance Health Maintenance: Yes: Discussion with Primary Care - Discussed with Dr. Uribe and Dr. Rubalcava his condition
[2018-06-15] MEDS ORDERED: Digoxin IV* 0.5 MG/2 ML AMP (0.25 MG/ML) IV SLOW PU ONE (18:56)
[2018-06-15] MEDS: Morphine 4 MG/ML VIAL (1 ml) 4 MG/ML VIAL IV PRN (20:15)
[2018-06-15] MEDS: Carboxymethylcellulose/Glyceri 10 ML OPHTH.GEL lubricant eye gel BOTH EYES SCH (20:15)
[2018-06-16] MEDS: ceFAZolin 1 GM ADVAN(*) 1 GM in NS 0.9% 50 ML* 50 ML IVPB SCH ×2 (00:08→13:04)
[2018-06-16 06:41] LABS: ABS Basophils 0 10^3/ul (0-0.2); ABS Eosinophils 0 10^3/ul (0-0.6); ABS Lymphocytes 0.1 10^3/ul (1.0-4.8); ABS Monocytes 0.1 10^3/ul (0-0.8); ABS Neutrophils 5.5 10^3/ul (1.5-7.7); ABS Nucleated RBC 0 10^3/ul; Eosinophil % 0 %; Hematocrit 26 % (36-46); Hemoglobin 8.7 g/dL (14.0-18.0); Lymphocyte % 2.2 %; Mean Corpuscular HGB Conc 34 g/dL (31-36); Mean Corpuscular Hemoglobin 29 pg (27-31); Mean Corpuscular Volume 84 fL (80-94); Mean Platelet Volume 10.1 fL (7.4-10.4); Nucleated Red Blood Cells % 0; Platelet Count 28 10^3/uL (150-450); Red Blood Count 3.05 10^6 /uL (4.18-5.48); Red Cell Distribution Width 20 % (10.5-15); White Blood Count 5.8 10^3/uL (3.5-10.8)
[2018-06-16 06:58] LABS: BUN/Creatinine Ratio 42.4 (8-20); Calcium 8.3 mg/dL (8.6-10.3); EGFR African American 34.9 (>60); EGFR Non-African American 28.9 (>60); Potassium 4.5 mmol/L (3.5-5.0)
[2018-06-16] MEDS ORDERED: Cyanocobalamin INJ * 1,000 MCG/ML VIAL 1 ML VIAL IM ONE (09:00)
[2018-06-16] MEDS ORDERED: methylPREDNISolone SOD SUCC* 1,000 MG in NS 0.9% 100 ML* 100 ML IVPB ONE (09:45)
--- NOTE | 2018-06-16 09:51 | PN ---
Subjective Date of Service: 06/16/18 Interval History: Pt stated that his mobility is better but his R side is weaker for the past "couple days" Had an episode of a. fib last night lasted approx 4-6 hrs and resolved after pt was started on lopressor Spat up a small amount of blood when coughing once yesterday Objective Active Medications: Acetaminophen (Tylenol Tab*) 650 mg PO Q6H PRN PRN Reason: pain/fever Carboxymethylcellulose/Glycerin (Refresh Optive Gel Eye Gel) 1 applic BOTH EYES BEDTIME [facility] Last Admin: 06/15/18 20:15 Dose: 1 applic Finasteride (Proscar Tab*) 5 mg PO DAILY [facility] Last Admin: 06/15/18 09:39 Dose: 5 mg Cefazolin Sodium 1 gm/ Sodium (Chloride) 50 mls @ 200 mls/hr IVPB Q12H [facility] Last Admin: 06/16/18 00:08 Dose: 200 mls/hr Morphine Sulfate (Morphine 4 Mg/Ml Vial (1 Ml)) 1 mg IV Q1H PRN PRN Reason: SEVERE PAIN Last Admin: 06/15/18 20:15 Dose: 1 mg Nystatin (Nystatin Suspension*) 200,000 units PO QID [facility] Last Admin: 06/15/18 20:18 Dose: 200,000 units Pantoprazole Sodium (Protonix Tab*) 40 mg PO BID [facility] Last Admin: 06/15/18 20:16 Dose: 40 mg Polyethyl Glycol/Propylene Glycol (Lubricant Eye Drops) 1 drop BOTH EYES QID PRN PRN Reason: DRY EYE Tamsulosin HCl (Flomax Cap*) 0.4 mg PO DAILY [facility] Last Admin: 06/15/18 09:39 Dose: 0.4 mg Tramadol HCl (Ultram*) 50 mg PO Q12H PRN PRN Reason: PAIN Last Admin: 06/15/18 04:56 Dose: 50 mg Vital Signs - 8 hr 06/16/18 06/16/18 06/16/18 02:44 07:10 07:59 Temperature 97.4 F 97.6 F Pulse Rate 52 58 Respiratory 16 18 18 Rate Blood Pressure 110/62 117/68 (mmHg) O2 Sat by Pulse 95 95 Oximetry Oxygen Devices in Use Now: None Appearance: 73 yo M in nAD, AAOx3 Eyes: No Scleral Icterus, PERRLA Ears/Nose/Mouth/Throat: NL Teeth, Lips, Gums, Mucous Membranes Moist Neck: NL Appearance and Movements; NL JVP, Trachea Midline Respiratory: Symmetrical Chest Expansion and Respiratory Effort, Clear to Auscultation Cardiovascular: NL Sounds; No Murmurs; No JVD, RRR Abdominal: NL Sounds; No Tenderness; No Distention, No Hepatosplenomegaly Lymphatic: No Cervical Adenopathy Extremities: No Clubbing, Cyanosis, - - +2 pedal edema b/l Skin: No Nodules or Sclerosis, - - small area of petechiae on r foot Neurological: Alert and Oriented x 3, - - R leg -unable to hold against gravity , otherwise exam limited due to generalized joint pain, but motor at 5/5 in remaining extremities, speech clear but soft spoken, fine generalized tremor noted Result Diagrams: 06/16/18 06:26 06/16/18 06:26 Microbiology and Other Data: Microbiology 06/13/18 13:04 Aerobic Blood Culture - Final Blood Venous Not Reportable Anaerobic Blood Culture - Final Not Reportable Blood Culture - Preliminary Blood MRSA/MSSA (PCR) - Final Mrsa Negative S.aureus Positive Assess/Plan/Problems-Billing Assessment: 73 yo M with h/o RA with recent URI and sinus infections x 3 months on 4 different antibiotics and steroid course presented with [facility] and was found to have pulmonary nodules at beginning of May 2018, discharged home and outpatient renal bx showing vasculitis formal report still pending. Started on PO steroids and his joint pain got severe to the point of limiting his ambulation. Pt was admitted for management of his vasculitis - Patient Problems (1) Leg weakness Comment: pt noted it sometime yesterday, but did not inform anyone. Exam limited due to diffuse joint pain. D/w Dr. Finney: pt cannot have MRI due to pacer and not CTA due to renal failure. Cannot be on ASA due to thrombocytopenia. will get brain CT, carotid dopplers and add bubble study to his Echo Neurology will see pt. started on neurochecks and cont telem Differential is broad and includes: CVA, [employer] vasculitis, TTP (unlikely as per d/ w Dr. 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 Got rash on chest with initial Rituxan infusion, now resolved with Benadryl, otherwise he tolerated Rituximab well on 06/13-06/14/18 will cont Solu Medrol x one more day today (3) Rheumatoid arthritis Comment: worrisome exacerbation of difuse joint pain /increased warmth-to the point of pt having problems with feeding himself. He will need extended rehab Cardiac function seems mildly impaired on his echo; held Plaquenil Dr. Kelley consulted (4) Normocytic anemia Comment: iron studies suggestive of ACD (5) Pulmonary nodules/lesions, multiple Comment: due to vasculitis-see above (6) Troponin level elevated Comment: pt denies CP Echo shows EF 55%, mod MR and mod TR in 05/2018 suspect demand ischemia. appreciate DR. Worrell's consult Pt has a pacemaker that is not MRI compatible (7) Thrombocytopenia Comment: s/p plt transfusion on 06/16/18 with good response.Today pt has scant petechiae noted on exam of feet. Hematology consult appreciated. (8) Blood bacterial culture positive Comment: for MSSA -ID consulted, but no full ID coverage now. Transfer recommended for ID consult and consideration of management of possible infected pacer. Pt and family are considering transfer but have not agreed to it yet. He would need a CAR, but due to diffuse joint pain will postpone it On Cefazolin started on 06/13/18. Repeat blood cx ordered on 06/15 but not done yet-called lab (9) Pancytopenia Comment: hematology consulted (10) DVT prophylaxis Comment: no anticoagulants due to thombocytopenia, SCD's Status and Disposition: inpatient
[2018-06-16] MEDS: Nystatin SUSPENSION* 100000 UNITS/ML 5 ML UDC PO SCH ×2 (11:13→14:16)
[2018-06-16] MEDS: Pantoprazole TAB * 40 MG TAB PO SCH (11:15)
[2018-06-16] MEDS: Tamsulosin CAP* 0.4 MG PO SCH (11:15)
[2018-06-16] MEDS: Finasteride TAB* 5 MG PO SCH (11:15)
[2018-06-16] MEDS: traMADol TAB* 50 MG PO PRN (12:21)
--- NOTE | 2018-06-16 15:46 | CONS ---
CC: Tracy Dugan NP; Dr. Jayce Kelley; Dr. Kojo Rubalcava; Dr. Blankenship* CONSULTATION REPORT: DATE OF CONSULT: 06/16/18 CURRENT LOCATION: Room 443, bed 2. PRIMARY CARE PROVIDER: Tracy Dugan NP. REASON FOR CONSULTATION: Right-sided weakness. HISTORY OF PRESENT ILLNESS: Mr. Lopez is a 73-year-old gentleman with a very complicated autoimmune history. He has noted history of rheumatoid arthritis dating back years and follows with Dr. Kelley, and also has a history of hypertension, hyperlipidemia, sick sinus syndrome with dual-chamber pacemaker, paroxysmal ventricular tachycardia, one episode of atrial fibrillation on telemetry last night, recent hospitalization in early May from 05/25/18 to 07/11. At that time, he presented with worsening exertional dyspnea. He was in [place] when he started to develop sinus infections and had multiple infections despite antibiotics. He returned back to [place] and continued to have some sinus infections, took a trip to [facility] and at that time, he was able to function and walk without difficulty, but soon after he returned, he started to have problems with shortness of breath again. He was admitted to the hospital in early May with progressive weakness and dyspnea. During that admission, he was followed by Pulmonary, Renal, and Rheumatology. There were noted pulmonary nodules and acute renal failure. He had a lung biopsy, which showed inflammatory changes. He was discharged home on steroids. 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 About a week and a half ago, he had his prednisone dropped from 60 mg to 50 mg and noted worsening of his condition with worsening joint pain and weakness. He also noted some hoarseness in his voice that had developed at the time of his previous admission and has since worsened. He was noted to have acute kidney failure with creatinine above 2 on this admission. He has been treated with pulse steroids and Rituxan has been added to his regimen and had subsequently developed thrombocytopenia. Dr. Rubalcava is currently following him as well. Dr. Rubalcava feels that his thrombocytopenia is likely related to consumption or reduced marrow production of platelets and RBCs. Dr. Rubalcava agrees with treatment of rituximab and steroids. He is also considering a bone marrow biopsy and there has been some consideration of plasma exchange by Dr. Kelley. I was consulted today because the patient reported worsening right-sided weakness. He gives me a history of developing right-sided weakness starting Thursday of last week, which is approximately 5 days ago. He states that the weakness has been progressive. On Thursday, he noticed worsening weakness on the right side. By Thursday, he was too weak to walk. He also notes diffuse pain in his body and joints consistent with his presentation. He noted no problems with swallowing or speaking. No problems with double vision or vision loss, although he occasionally has some blurred vision. He noted no problems with focal numbness or tingling. Noted no facial numbness or tingling. There was no report of any facial droop. He noted no left- sided tingling or numbness or weakness. No recent headaches. Neurologically, he states that he has had some difficulty moving his arms and legs due to pain and that he felt like his weakness might be related to some swelling, which he has noticed worsening in the last few weeks. Unfortunately, the patient has a pacemaker and is not able to get an MRI. CT of the head is pending. He did have an echocardiogram done several days ago, which was a technically difficult study. The left ventricular chamber size is normal. Systolic function is in the lower limits of normal with estimated ejection fraction of 50% to 55%. There was abnormal ventricular septal wall motion consistent with right ventricular pacemaker. No change from 05/25/18. Bubble study has subsequently been ordered , but not done at this point. He had a carotid Doppler study done today, which showed minimal plaque noted in the proximal internal carotid, less than 50% in both internal carotid arteries. He is unfortunately unable to have a CT angiogram due to his kidney function. He states that the right arm weakness that he has been complaining has improved somewhat. He is able to lift it higher and upon further questioning, he notes that he has limited motion due to pain in his shoulder. He also has a history of significant back pain and when he tries to lift his right leg, he has significant pain in his low back. PAST MEDICAL HISTORY: Significant for hypertension; sick sinus syndrome, status post pacemaker; BPH; GERD; hyperlipidemia; connective tissue disorder/ rheumatoid arthritis, followed by Rheumatology, previously treated with diclofenac and hydroxychloroquine, now on pulse steroids and Rituxan. PAST SURGICAL HISTORY: Includes appendectomy and tonsillectomy. He has had back surgery. ALLERGIES: PENICILLIN, which causes hives. FAMILY HISTORY: Cancer in his mother. Daughter with Sjogren's syndrome. SOCIAL HISTORY: Prior smoker up to 2 packs a day for years, but quit many years ago. He drinks socially, 2 to 3 drinks per week. His decision maker is his , Martha. REVIEW OF SYSTEMS: A 14 organ systems as noted above, otherwise negative. PHYSICAL EXAMINATION: Vital Signs: Temp of 97.6, pulse rate of 51 to 58, respiratory rate of 16 to 20, saturating 95% to 97% on room air. Blood pressure is 114/58 to 110/62 to 117/68. General: He is a well-nourished, well- developed gentleman, in no acute distress, lying in his hospital bed with head approximately at 90 degrees. His family is at the bedside. His speech is fluent. There is no dysarthria. He does have a very hoarse, raspy voice and at times, it takes him few minutes to produce words, but no word finding difficulties. His recall of recent and remote events appears to be intact. His speech is fluent. He is normocephalic and atraumatic. Sclerae are anicteric. Mucous membranes are slightly dry. Oropharynx is clear. Nares are patent. Neck is supple. No thyromegaly. No bruits appreciated. Chest is clear to auscultation bilaterally. Cardiovascular: Regular rate and rhythm without murmurs. Abdomen is nontender, nondistended. Extremities: He has 2+ pitting edema to the shins bilaterally. Skin is warm. Neurologic Exam: He is awake, alert, and oriented x3. Cranial nerves: Pupils are equal, round, and reactive to light. Extraocular muscles are intact with no diplopia. No nystagmus appreciate. No ptosis appreciated. Visual ramirez are full. Face appears symmetric. Facial sensation is intact to light touch bilaterally. Hearing is intact bilaterally. Palate raises symmetrically. Tongue is midline. Trapezius is 5/5. Motor Exam: He is 5/5 in the left upper extremity with normal tone. He has some limited movement in the left lower extremity, but is able to give good resistance of 4+/5 proximally and 5/5 distally. On the right upper extremity, he has 4+/5 biceps, 5/5 triceps. Proximally, he has limitations related to pain, but does have good resistance to the deltoid. Distally, he is 5/5. Sensation is intact to light touch and pinprick with no obvious deficits. [id number] and rapid alternating movements are generally intact with no past pointing. No tremors at rest or with movements. DTRs are 1 + and symmetric at the biceps, patella, absent at the ankles, withdrawal Babinski bilaterally. Gait is not tested at this time. DIAGNOSTIC STUDIES/LAB DATA: Lab work includes positive p-ANCA, myeloperoxidase is greater than 8, LATON negative, c-ANCA negative, proteinase 3 negative, rheumatoid factor 16, SSA and SSP negative, anti-Anderson negative, anti double-stranded DNA pending, complement C3 and C4 normal. His white count today is 5.8; hemoglobin of 8.7; hematocrit of 26, which has been stable; platelet count today is 28, up from 16 yesterday. He is status post platelet transfusion. He was 162 back on his previous admission. He came in at 42. INR of 1.44 and aPTT of 24.2. Fibrinogen 552.9. D-dimer greater than 1050. No evidence of DIC. His previous B12 from prior admission was 519. His basic metabolic panel is significant for BUN of 95, creatinine of 2.24, glucose of 150 , calcium of 8.3, total bilirubin of 1.4. LFTs are otherwise intact. Troponin was initially elevated at 0.46 to 0.42. C-reactive protein is 233. Urine with 2+ protein, 3+ blood, 2+ wbc's, 3+ rbc's, 1+ glucose. CMV negative. Influenza negative. Studies as noted above. He also had a maxillofacial CT, which showed chronic sinusitis involving the maxillary sinuses and ethmoid air cells. Minimal degenerative changes in the temporomandibular joint. Abdomen and pelvis CT, no obstructive uropathy is noted. Small retroperitoneal hematoma adjacent to the lower pole of the left kidney consistent with recent biopsy. Bladder: Diverticuli in the right urinary bladder is present, borderline splenomegaly. Visualized lumbar spine demonstrates degenerative disk disease with posterior fusion at L4-5 and L5-S1. Chest x-ray: Cardiomegaly with mild interstitial edema. Small bilateral pleural effusions are noted. ASSESSMENT AND PLAN: Mr. Lopez is a 73-year-old gentleman with complicated medical history including connective tissue disorder/rheumatoid arthritis, followed by Dr. 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 He was initially placed on oral steroids and subsequently received pulse steroids during this hospitalization and was put on Rituxan as well. He had a dramatic drop in his platelets over the last month and Dr. Rubalcava is following him. Suspected consumption/reduced marrow production. Little evidence at this point for underlying ITP or TTP, although they are in the differential and the patient did have some schistocytes. The patient notes worsening weakness over the last several months, but on Thursday noted right- sided greater than left-sided weakness. He also was admitted with severe joint pain that was more generalized in nature. On examination, he does appear to have some weakness on the right side, but he also has some weakness in the left lower extremity. Examination was very difficult and limited due to pain. We discussed stroke as a possible etiology, although we are unable to get an MRI due to his pacemaker and given his current condition, we are unable to recommend any acute treatment. My concern for stroke is moderate. Other things on the differential include central cervical cord process. He is immunocompromised and had one bottle MSSA positive blood, epidural abscess is possible, although the presentation would be somewhat unusual. The plan is to get a CT scan of his neck. Unfortunately, he cannot have contrast or an MRI so the study will be of limited value [employer] vasculitis could also cause myriad of symptoms, although his presentation is atypical. We certainly would not proceed with any invasive procedure such as lumbar puncture at this time. Currently, his mental status is clear, something we will continue to follow. Interestingly, he does report a history of progressive weakness. He has had some hoarseness in his voice, while he denies any specific problems of swallowing or speaking, myasthenia gravis given his history of autoimmune disease would be in the differential. I am going to send myasthenia antibodies , although this will take some time to get back. My suspicion for myasthenia at this point is low. Other considerations would be a steroid or autoimmune myopathy. I am going to send CK and myoglobulin. I had a long discussion with the family about the difficulty of diagnosing a stroke in this patient. It is possible that CT of the head will show new stroke , although less likely. MRI would be the preferred imaging modality, but he cannot have that. Carotids show no evidence of significant disease. Echo bubble is pending, although this does not appear to be an embolic type situation and as I noted, we cannot recommend any anticoagulation based on his current hematologic issues. We will continue to follow along and make further recommendations as necessary. I would recommend getting physical therapy and occupational therapy as soon as possible. Finally, I would strongly consider transfer given the number of issues that he has and the possibility that he may need plasma exchange. Dr. Uribe is in agreement and is planning to speak with the family. Thank you for the opportunity to participate in the care of this very interesting patient. [id number]/[facility] #: [id number] ESTEPHANIE
[2018-06-16 16:01] VITALS: BP 136/64
--- NOTE | 2018-06-16 16:22 | ECHO ---
*[facility]* [place] [address] Fax #: [phone] Limited Transthoracic Echocardiogram Patient: Art Lopez Height: 67 in / L 170.2 cm : 1945 Weight: 153 lb / Study Date: 06/16/2018 69.5 kg Age: 73 BP: 117 / 68 Gender: M BMI/BSA: 24 kg/m^2 / HR: 58 bpm 1.82 m^2 *Wood Barrel Reconditioner: * Paty Tolentino *Referring Physician: * Sherley Uribe *Reading Physician: * Estelita Evans Indications: CVA. History: Pacemaker. Risk factors: Former tobacco use. Hypertension. Dyslipidemia. Conclusions Summary: 1. No evidence of intracardiac shunting based on 2D imaging and saline bubble contrast. 2. Full echocardiogram completed 06/14/18. Study data: This is a LIMITED exam for bubble study only. Procedure: Transthoracic echocardiography was performed. Image quality was fair. Intravenous contrast (agitated saline) was administered. A bubble study was performed. Images 1-3. Patient status: Inpatient. Patient room number: 443-2. Findings Atrial septum: Bubble study was negative There is no atrial level shunt. Prepared and electronically signed by Estelita Evans 06/16/2018 16:21
[2018-06-16 16:30] LABS: Myoglobin 155.8 ng/mL (17.4-105.7)
[2018-06-16] MEDS: Morphine 4 MG/ML VIAL (1 ml) 4 MG/ML VIAL IV PRN (16:46)
--- NOTE | 2018-06-16 18:14 | TRS ---
CC: Tracy Dugan NP, [place] system; Dr. Kelley, Rheumatology; Dr. Blankenship, Nephrology; Missy Boland NP, Rheumatology; Dr. Feliz, Urology; Dr. Chambers, Cardiology; Dr. Finney, Neurology; Dr. Rubalcava and Dr. Francois, Hematology/Oncology ; Dr. Worrell, Cardiology; Dr. Cris Romero, Hospitalist Service, [place], [place]* TRANSFER SUMMARY: DATE OF ADMISSION: 06/13/18 DATE OF TRANSFER: 06/16/18 PRIMARY CARE PROVIDER: Tracy Dugan NP, at the [facility]. REASON FOR TRANSFER: Management of the patient with methicillin-sensitive Staphylococcus aureus bacteremia with possibility of pacemaker infection. The patient will require Infectious Disease consultation, management by infectious disease specialist, and consideration for extraction of his pacemaker if it is deemed to be infected. ACUTE ONGOING DIAGNOSES: Include: 1. Microscopic polyangiitis. The patient currently received a dose of 700 mg of Rituxan on 06/13/18. He is due for another dose of Rituxan on Thursday, , of another 700 mg. The patient's kidney biopsy obtained on 06/07/18 is still pending at the time of dictation and was sent to [facility] for evaluation. From verbal report from Dr. 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 2. Acute thrombocytopenia. The patient had platelet transfusion on 06/15/18 with good response. 3. Normocytic anemia, likely due to anemia of chronic disease, although the patient had schistocytes noted on CBC smear on 06/14/18. 4. The patient has history of paroxysmal supraventricular tachycardia and had an episode of atrial fibrillation on 06/15/18 that lasted approximately 4 to 6 hours and resolved after the patient was placed on metoprolol and his Norvasc was discontinued. The patient also received a dose of intravenous digoxin. 5. The patient developed right leg weakness in the evening on 06/15/18. Neurology evaluation is pending so far. CT of the brain had been negative as well as CT of the neck did not show any marked abnormalities. 6. 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 Pathology sent to [facility] and is pending at the time of dictation. Currently, the patient is being treated with pulse dose Solu-Medrol of 1 g daily. Today was the first day of the patient's Solu-Medrol dosing and he is recommended by Dr. Kelley to go down to Solu-Medrol 80 mg IV every 8 hours and then taper. PAST MEDICAL HISTORY: 1. History of admission to this hospital on 05/25/18 with hypoxemic respiratory failure and bilateral lung infiltrates with lung needle biopsy performed on 05/26/18 showing inflammatory cells with cultures negative. It is thought that the patient had developed the lung lesions due to vasculitis. He improved and his hypoxemia resolved after steroid treatment. 2. Paroxysmal supraventricular tachycardia. 3. History of hypertension. 4. History of sick sinus syndrome, status post pacemaker placement. 5. History of undifferentiated connective tissue disorder. The patient had been followed by Rheumatology for a long time for positive ALTON and positive ANCA. He was diagnosed with rheumatoid arthritis and was treated with diclofenac and hydroxychloroquine. He was controlled well with hydroxychloroquine until May of 2018 as above. 6. History of BPH. 7. History of gastroesophageal reflux disease. 8. History of hyperlipidemia. PAST SURGICAL HISTORY: Status post appendectomy and tonsillectomy remotely. CURRENT MEDICATIONS: 1. Please note that the patient received a dose of Solu-Medrol of 1 g IV today. He is planned to receive Solu-Medrol 80 mg IV every 8 hours tomorrow. 2. Refresh Optive Gel 1 application both eyes at bedtime. 3. Vitamin B12 IM monthly. 4. Finasteride 5 mg daily. 5. Cefazolin 1 g IV every 12 hours. 6. Metoprolol tartrate 25 mg daily. 7. Morphine 1 mg IV every 1 hour p.r.n. 8. Nystatin suspension 200,000 units p.o. 4 times a day. 9. Protonix 40 mg b.i.d. 10. Lubricant eye drops, 1 drop both eyes on a p.r.n. basis. 11. Flomax 0.4 mg daily. 12. Ultram 50 mg every 12 hours p.r.n. DIAGNOSTIC STUDIES/LAB DATA: Most recent laboratory values included on 06/16/18 , white blood cell count of 5.9, hemoglobin of 8.7, hematocrit of 26, MCV of 84 , and platelets of 28 up from 16 pre-transfusion. Reticulocyte count calculated was 0.8, corrected reticulocyte count was 0.5. The pathologist's report to the patient's CBC showed marked thrombocytopenia, normocytic anemia, and no evidence of hemolytic process. The patient's INR was 1.44 on 06/12/18, platelets at that point were 18, PTT was 24, fibrinogen 552, D-dimer of above 1050. He was noted to have no evidence of DIC as per our pathologist's report. The patient's urinalysis showed +2 protein, +3 blood, +2 wbc's, +3 rbc's, and absent bacteria. Immunology test showed rheumatoid factor at 16 on 05/25/18. CCP was below 15 on 05/25/18. On 05/26/18, the patient had ALTON that was 0.5, c-ANCA negative, PR3 negative at 0.2, p-ANCA antibody positive, and myeloperoxidase antibody positive at 8. ALTON was at 0.7, repeated on 06/13/18. Remaining antibodies obtained on included SSA/Ro antibody, SSB/La antibody, anti-Anderson IgG, and anti- double stranded DNA. All of them were within normal limits. Complement C3 level was 87, C4 level was 31, and total complement of CH50 was 34. Those were documented on 06/13/18. Serologies obtained included cytomegalovirus IgG and IgM negative on 05/27/18. Influenza testing negative on 06/13/18. Interferon Gold was indeterminate on . Pathology report from right lung obtained on 05/26/18 from fine needle biopsy showed benign chronic inflammatory elements. Once again, the pathology obtained from the kidney on 06/11/18, the biopsy report is still pending. Radiology report included: CT angiogram of the chest obtained on 05/25/18, impression: "No CT evidence of PE. There is a large density in the lateral aspect of the right lower lobe measuring up to 3.6 x 7.9 cm in the axial plane in addition to multiple pulmonary nodules scattered throughout both lungs. Differential diagnosis includes neoplasm, inflammatory lung disease, and multifocal septic emboli." Ultrasound of the kidneys obtained on 05/25/18 showed increase in echogenicity consistent with medical renal disease and no hydronephrosis. There was large bladder diverticulum in the region of the right ureter insertion. Large postvoid residual. Maxillofacial CT obtained on 06/13/18, impression: "Chronic sinusitis involving the maxillary sinuses and ethmoid air cells. Mild degenerative changes of the temporomandibular joint are noted. No fracture was identified." Carotid Dopplers obtained on 06/16/18: Minimal plaque is noted in the proximal internal carotid arteries. Less than 50% stenosis of both carotid arteries. Cervical spine CT, impression: "Degenerative disk disease and osteoarthritis. There is moderate narrowing of the central canal at the C5-C6 as well as C3-C4 level. There is multilevel neural foraminal narrowing as described." Brain CT, impression: "No acute intracranial pathology. Moderate sinus mucosal inflammatory disease with an air-fluid level in the left maxillary." CT of the abdomen and pelvis obtained on 06/13/18, impression: "No obstructive uropathy is noted. A small retroperitoneal hematoma adjacent to the lower pole of the left kidney consistent with recent biopsy of the kidney in the lower pole. Bladder diverticula on the right side of the urinary bladder is present. Borderline splenomegaly." HOSPITALIZATION COURSE: Art Lopez is a 73-year-old male, who was admitted this time to the hospital on 06/13/18. The patient was seen at our hospital and admitted on 05/25/18 when he was noted to be hypoxemic with bilateral pulmonary infiltrates. The lung needle biopsy noted inflammation. He was discharged with likely diagnosis of acute renal failure due to vasculitis. He was discharged at that point on p.o. steroids with a planned kidney biopsy, which he actually underwent on 06/07/18. His biopsy results are still pending. The patient had been doing reasonably well until couple of days prior to his current admission that occurred on 06/13/18. He felt that his rheumatoid arthritis flared up. All of his large joints hurt immeasurably to the point that he was unable to move or feed himself. He came into the hospital, at that point he was noted to have worsening renal failure with creatinine at that point on 06/13/18 of 2.3 and in the past it was 1.6. He was seen by his city bus driver, Dr. Kelley, as well as his channel business manager, Dr. Blankenship, and recommendation was for the patient to be started on Rituxan. He was started on rituximab on 06/13/18. He was noted to have a rash. The infusion was stopped for a while. He received Benadryl and the infusion was later on continued in the morning of 06/14/18 without any problems. His rash resolved. He also was started on pulse dose Solu-Medrol and on the day of transfer to [facility], he is on a fourth dose of his 1 g IV of Solu-Medrol daily. His overall clinical status actually improved with his creatinine going down to 2.2 on the day of transfer. He feels better and his joints hurt less. Unfortunately, his microbiology studies showed positive MSSA blood cultures. This with the patient who has history of pacemaker was a complication. We curb-sided our infectious disease specialist, who is on family medical leave, who recommended for the patient to be evaluated at another facility by infectious disease specialist for need of possible pacemaker extraction if it is deemed to be infected. The patient was placed on cefazolin at 1 g IV every 12 hours once his blood cultures turned out to be positive on 06/13/18 and he had been tolerating it well. Another complicating factor of the patient's hospital stay was thrombocytopenia. His platelets were at 42 on the day of admission and went down to 16 on 06/15/18. The patient developed scant petechiae on his right foot and he also had 1 episode of coughing up scant blood. He was evaluated by Hematology and needed a platelet transfusion on 06/15/18. 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 He was also evaluated by our grocery store manager for possibility of thrombotic thrombocytopenic purpura and it was noted to be unlikely. On the day of transfer on 06/16/18, the patient mentioned that the night prior, he had been having problems with right leg weakness. Dr. Finney from Neurology saw the patient in consultation and noted that the patient needed cervical spine CT, carotid Dopplers, and brain CT. All of them were negative as mentioned above. Unfortunately, the patient is not a candidate for MRI due to his pacemaker. He cannot have a CTA due to his renal failure. It is also possible that the patient could have a paraspinal abscess since he has metal wear in his lower back, but unfortunately once again neither MRI nor CTA was a possibility. It was discussed with the specialist that the patient could undergo a bone scan or CT myelogram, but at this time it was recommended for the patient to be transferred to tertiary care center for further infectious disease specialist evaluation. The patient will also at some point need a transesophageal echocardiogram. His transthoracic echocardiogram on 06/13/18 showed low EF of 50% to 55% with abnormal ventricular septal wall motion consistent with right ventricular pacemaker. On 06/16/18, the patient agreed to be transferred to tertiary care facility for infectious disease specialist management. I spoke with Dr. Cris Romero from [facility], who was very kind and accepted the patient in transfer. The patient is going to be transferred to [facility] today for further evaluation and treatment as mentioned above. For physical exam at discharge, please see daily progress notes. Please note that this is a very short summary of long and complicated hospitalization of this patient. Please refer to further medical records for details. TIME SPENT: Approximately an hour was spent on the patient's transfer. [id number]/[facility] #: [id number] [place]
[2018-06-16 19:52] LABS: Haptoglobin 178 mg/dL (30 - 200)
[2018-06-17 11:39] LABS: LAC PT Mix 1:1 12.4 sec; LUP Hexthrombin Time (Bovine) 20 sec (15 - 23)
[2018-06-18 09:01] LABS: Methylmalonic Acid 0.47 nmol/mL (<=0.40)
[2018-06-18 10:18] LABS: Albumin 1.5 g/dL (3.4-4.7); Albumin/Globulin Ratio 0.67; Gamma Globulin 0.6 g/dL (0.6-1.6); Total Protein(PEP) 3.8 g/dL (6.3 - 7.9)
[2018-06-18 15:33] LABS: LAC APTT 24 sec (26 - 36); LAC INR 1.3; Prothrombin Time(LAC) 14.7 sec; Special Coagulation Interp Performed
== END 2018-06-16 16:45 | disposition short-term general hospital (02) | DRG 546 ==
LOC: ED 11:44 → MEDTELE 15:15
PROVIDERS: ADMIT Internal Medicine; ATTEND Internal Medicine
PROC: 30233R1 Transfusion of Nonautologous Platelets into Peripheral Vein, Percutaneous Approach (ICD-10-PCS; principal; 2018-06-15)
DX: M05.20 Rheumatoid vasculitis with rheumatoid arthritis of unspecified site (principal); M31.7 Microscopic polyangiitis; D61.818 Other pancytopenia; N17.9 Acute kidney failure, unspecified; I42.9 Cardiomyopathy, unspecified; M31.31 Wegener's granulomatosis with renal involvement; T82.7XXA Infection and inflammatory reaction due to other cardiac and vascular devices, implants and grafts, initial encounter; N40.0 Benign prostatic hyperplasia without lower urinary tract symptoms; M06.9 Rheumatoid arthritis, unspecified; K21.9 Gastro-esophageal reflux disease without esophagitis; E78.5 Hyperlipidemia, unspecified; I10 Essential (primary) hypertension; I08.3 Combined rheumatic disorders of mitral, aortic and tricuspid valves; I27.20 Pulmonary hypertension, unspecified; M19.90 Unspecified osteoarthritis, unspecified site; N05.9 Unspecified nephritic syndrome with unspecified morphologic changes; D64.9 Anemia, unspecified; R91.8 Other nonspecific abnormal finding of lung field; R74.8 Abnormal levels of other serum enzymes; B95.61 Methicillin susceptible Staphylococcus aureus infection as the cause of diseases classified elsewhere; R53.1 Weakness; Y83.1 Surgical operation with implant of artificial internal device as the cause of abnormal reaction of the patient, or of later complication, without mention of misadventure at the time of the procedure; Z88.0 Allergy status to penicillin; Z82.49 Family history of ischemic heart disease and other diseases of the circulatory system; Z87.891 Personal history of nicotine dependence; Y92.9 Unspecified place or not applicable
CPT/HCPCS: 36415; 70450; 70486; 71045; 72125; 74176; 80048; 80053; 81003; 81015; 82248; 82550; 83010; 83519; 83520; 83605; 83615; 83735; 83874; 83880; 83921; 84155; 84165; 84484; 85025; 85027; 85045; 85049; 85060; 85362; 85384; 85610; 85613; 85730; 86038; 86140; 86160; 86162; 86225; 86235; 86850; 86900; 86901; 87040; 87077; 87086; 87150; 87186; 87205; 93005; 93308; 93880; 99223; 99284; A9270-GY; C8924; G8987-GO-CM; G8988-GO-CI; G8989-GO-CM; J0456; J0690; J0696; J1160; J1200; J2270; J2930; J3420; J3475; J3490; J9312; P9035

== ENCOUNTER 2023-03-16 13:31 | Observation (INO) ==
[2023-03-16 15:01] LABS: ABS Lymphocytes 0.4 10^3/uL (1.0-4.8); ABS Monocytes 0.3 10^3/uL (0.0-1.1); ABS Neutrophils 4.2 10^3/uL (1.5-7.6); Eosinophil % 0.8 %; Hematocrit 25.9 % (38-53); Hemoglobin 8.6 g/dL (13.2-16.3); Lymphocyte % 7.1 %; Mean Corpuscular Hemoglobin 28.2 pg (27-33); Mean Corpuscular Hgb Conc 33.1 g/dL (31-36); Mean Corpuscular Volume 85.2 fL (80-97); Mean Platelet Volume 6.9 fL (7.5-11.2); Platelet Count 274 10^3/uL (150-450); Red Blood Count 3.04 10^6/uL (4.06-5.63); Red Cell Distribution Width 13.9 % (12-17)
[2023-03-16 15:31] LABS: Albumin/Globulin Ratio 1.4 (1-3); Calcium 8.6 mg/dL (8.6-10.3); Creatinine, Serum 1.42 mg/dL (0.67-1.17); Globulin 2.2 g/dL (2-4); Total Bilirubin 0.6 mg/dL (0.2-1.0); Total Protein 5.2 g/dL (6.4-8.9); eGFR CKD-EPI 50.9 (>60)
[2023-03-16] MEDS ORDERED: Lactated Ringers 1000 ml BAG 1,000 ML IV ONE (16:37)
[2023-03-16] MEDS ORDERED: Remdesivir 100 mg Vial 200 MG in NS 0.9% 250 ml 210 ML IV ONE (18:25)
[2023-03-16 19:21] LABS: % Iron Saturation 13 % (15-55); .Transferrin 109 mg/dL (203-362); Iron < 20 ug/dL (50-212); Total Iron Binding Capacity 153 mcg/dL (250-450); Unsaturated Iron Binding 133 ug/dL
[2023-03-16 19:40] LABS: Ferritin 345.8 ng/mL (24-336)
[2023-03-16 20:07] LABS: INR 1.4 (0.83-1.13)
[2023-03-16 20:38] LABS: Albumin 2.7 g/dL (3.2-5.2); Albumin/Globulin Ratio 1.2 (1-3); Calcium 8.3 mg/dL (8.6-10.3); Creatinine, Serum 1.31 mg/dL (0.67-1.17); Globulin 2.2 g/dL (2-4); Potassium 4.3 mmol/L (3.5-5.0); Total Bilirubin 0.6 mg/dL (0.2-1.0); Total Protein 4.9 g/dL (6.4-8.9); eGFR CKD-EPI 56.1 (>60)
[2023-03-16 22:22] LABS: Hematocrit 23.4 % (38-53); Hemoglobin 7.8 g/dL (13.2-16.3)
[2023-03-17 06:53] LABS: ABS Lymphocytes 0.4 10^3/uL (1.0-4.8); ABS Monocytes 0.1 10^3/uL (0.0-1.1); ABS Neutrophils 2.7 10^3/uL (1.5-7.6); Hematocrit 24.4 % (38-53); Hemoglobin 8.1 g/dL (13.2-16.3); Lymphocyte % 11.4 %; Mean Corpuscular Hemoglobin 28.3 pg (27-33); Mean Corpuscular Hgb Conc 33.3 g/dL (31-36); Mean Corpuscular Volume 85.1 fL (80-97); Mean Platelet Volume 6.8 fL (7.5-11.2); Nucleated Red Blood Cells % 0.2 %/100WBC (0.0-0.8); Platelet Count 209 10^3/uL (150-450); Red Blood Count 2.87 10^6/uL (4.06-5.63); Red Cell Distribution Width 13.7 % (12-17); White Blood Count 3.2 10^3/uL (3.6-10.2)
[2023-03-17 06:57] LABS: INR 1.42 (0.83-1.13)
[2023-03-17 07:11] LABS: Albumin 2.9 g/dL (3.2-5.2); Albumin/Globulin Ratio 1.5 (1-3); Calcium 8.5 mg/dL (8.6-10.3); Creatinine, Serum 1.35 mg/dL (0.67-1.17); Magnesium 1.7 mg/dL (1.9-2.7); Potassium 4.9 mmol/L (3.5-5.0); Total Bilirubin 0.5 mg/dL (0.2-1.0); Total Protein 4.9 g/dL (6.4-8.9); eGFR CKD-EPI 54.1 (>60)
[2023-03-17] MEDS: Cholecalciferol (VIT D3) 1,000 unit TAB PO SCH (09:53)
[2023-03-17] MEDS: cefTRIAXone 1 gm/50 mL D5W 1 GM/50 ML BAG IV SCH (09:57)
[2023-03-17] MEDS: Azithromycin 500 mg/250 ml NS 500 MG/250 ML BAG IVPB SCH (12:19)
[2023-03-17] MEDS ORDERED: Remdesivir 100 mg Vial 100 MG in NS 0.9% 250 ml 230 ML IV SCH (21:00)
[2023-03-17 22:10] LABS: Urine Appearance Cloudy; Urine Bilirubin Negative (Negative); Urine Blood Negative (Negative); Urine Color Yellow; Urine Glucose Negative (Negative); Urine Ketones Negative (Negative); Urine Nitrite Positive (Negative); Urine Protein Negative (Negative); Urine Specific Gravity 1.018 (1.002-1.030); Urine Urobilinogen Negative (Negative)
[2023-03-17 22:23] LABS: Urine Bacteria 1+ (Absent); Urine Red Blood Cell Absent (Absent); Urine Squamous Epithelial Cell Present (Absent); Urine White Blood Cell 3+(>20/hpf) (Absent)
[2023-03-18 09:59] VITALS: BP 160/85
[2023-03-18 10:04] LABS: Hematocrit 31.2 % (38-53); Hemoglobin 10.3 g/dL (13.2-16.3); Mean Corpuscular Hemoglobin 28.2 pg (27-33); Mean Corpuscular Hgb Conc 33.1 g/dL (31-36); Mean Corpuscular Volume 85.4 fL (80-97); Mean Platelet Volume 7.3 fL (7.5-11.2); Platelet Count 393 10^3/uL (150-450); Red Blood Count 3.66 10^6/uL (4.06-5.63); Red Cell Distribution Width 14.2 % (12-17); White Blood Count 14.1 10^3/uL (3.6-10.2)
[2023-03-18] MEDS: cefTRIAXone 1 gm/50 mL D5W 1 GM/50 ML BAG IV SCH (10:43)
[2023-03-18] MEDS: Cholecalciferol (VIT D3) 1,000 unit TAB PO SCH (10:49)
[2023-03-18] MEDS: Azithromycin 500 mg/250 ml NS 500 MG/250 ML BAG IVPB SCH (11:31)
[2023-03-29] MEDS ORDERED: Cyanocobalamin INJ 1,000 MCG/ML VIAL 1 ML VIAL IM SCH (09:00)
== END 2023-03-18 13:20 | disposition home or self-care (01) ==
LOC: EDHOLD 13:31 → ED 13:31 → MED 19:16
PROVIDERS: ADMIT Hospitalist; ATTEND Hospitalist

== ENCOUNTER 2023-07-06 10:26 | Observation (INO) ==
[2023-07-06 11:17] LABS: ABS Eosinophils 0.2 10^3/uL (0.0-0.5); ABS Lymphocytes 0.5 10^3/uL (1.0-4.8); ABS Monocytes 0.6 10^3/uL (0.0-1.1); Eosinophil % 2.6 %; Hematocrit 25.6 % (38-53); Hemoglobin 7.9 g/dL (13.2-16.3); Lymphocyte % 5.3 %; Mean Corpuscular Hemoglobin 25.3 pg (27-33); Mean Corpuscular Hgb Conc 30.9 g/dL (31-36); Mean Platelet Volume 7.3 fL (7.5-11.2); Platelet Count 266 10^3/uL (150-450); Red Blood Count 3.12 10^6/uL (4.06-5.63); Red Cell Distribution Width 23.4 % (12-17); White Blood Count 9.4 10^3/uL (3.6-10.2)
[2023-07-06 11:39] LABS: Albumin 2.6 g/dL (3.2-5.2); Albumin/Globulin Ratio 1.7 (1-3); Calcium 8.1 mg/dL (8.6-10.3); Creatinine, Serum 1.43 mg/dL (0.67-1.17); Globulin 1.5 g/dL (2-4); Potassium 4.3 mmol/L (3.5-5.0); Total Bilirubin 1.2 mg/dL (0.2-1.0); Total Protein 4.1 g/dL (6.4-8.9); eGFR CKD-EPI 50.2 (>60)
[2023-07-06 13:37] LABS: High Sensitivity Troponin 1 Hr 83 pg/mL (<20)
[2023-07-06] MEDS ORDERED: Polyethylene Glycol 3350 17 GM PACKET PO PRN (16:07)
[2023-07-06] MEDS: cefTRIAXone 1 gm/50 mL D5W 1 GM/50 ML BAG IV SCH (18:38)
[2023-07-06] MEDS: methylPREDNISolone SOD SUCC 40 mg/ml 1 ml VIAL IV SCH (18:40)
[2023-07-06] MEDS: Albuterol/Ipratropium NEB.SOL (2.5/0.5 MG) 3 ML NEB.SOLN INH SCH (18:41)
[2023-07-06] MEDS: Azithromycin 500 mg/250 ml NS 500 MG/250 ML BAG IVPB SCH (19:22)
[2023-07-06 21:10] LABS: C Reactive Protein 113.75 mg/L (<8.01)
[2023-07-06] MEDS: Senna TAB 8.6 mg TAB PO SCH (22:04)
[2023-07-07 06:27] LABS: Hematocrit 28.8 % (38-53); Hemoglobin 8.9 g/dL (13.2-16.3); Mean Corpuscular Hemoglobin 25.7 pg (27-33); Mean Corpuscular Volume 82.9 fL (80-97); Mean Platelet Volume 7.4 fL (7.5-11.2); Platelet Count 354 10^3/uL (150-450); Red Blood Count 3.47 10^6/uL (4.06-5.63); Red Cell Distribution Width 24.1 % (12-17); White Blood Count 9.3 10^3/uL (3.6-10.2)
[2023-07-07 06:45] LABS: Albumin 2.9 g/dL (3.2-5.2); Albumin/Globulin Ratio 1.7 (1-3); Calcium 8.5 mg/dL (8.6-10.3); Creatinine, Serum 1.46 mg/dL (0.67-1.17); Globulin 1.7 g/dL (2-4); Magnesium 2.3 mg/dL (1.9-2.7); Potassium 4.8 mmol/L (3.5-5.0); Total Bilirubin 1.1 mg/dL (0.2-1.0); Total Protein 4.6 g/dL (6.4-8.9); eGFR CKD-EPI 48.9 (>60)
[2023-07-07] MEDS: Albuterol/Ipratropium NEB.SOL (2.5/0.5 MG) 3 ML NEB.SOLN INH SCH (07:20)
[2023-07-07 08:12] LABS: Activated Partial Thrombo Time 25.8 seconds (26.0-38.0); INR 1.28 (0.83-1.13)
[2023-07-08 06:15] LABS: ABS Eosinophils 0.1 10^3/uL (0.0-0.5); ABS Lymphocytes 0.8 10^3/uL (1.0-4.8); ABS Monocytes 0.6 10^3/uL (0.0-1.1); ABS Neutrophils 11.7 10^3/uL (1.5-7.6); ABS Nucleated RBC 0.01 10^3/ul; Eosinophil % 0.8 %; Hematocrit 23.5 % (38-53); Hemoglobin 7.2 g/dL (13.2-16.3); Lymphocyte % 5.7 %; Mean Corpuscular Hemoglobin 25.6 pg (27-33); Mean Corpuscular Hgb Conc 30.9 g/dL (31-36); Mean Corpuscular Volume 82.9 fL (80-97); Mean Platelet Volume 7.1 fL (7.5-11.2); Nucleated Red Blood Cells % 0.1 %/100WBC (0.0-0.8); Platelet Count 284 10^3/uL (150-450); Red Blood Count 2.83 10^6/uL (4.06-5.63); Red Cell Distribution Width 23.8 % (12-17); White Blood Count 13.3 10^3/uL (3.6-10.2)
[2023-07-08 06:31] LABS: Albumin 2.3 g/dL (3.2-5.2); Albumin/Globulin Ratio 1.6 (1-3); Calcium 7.9 mg/dL (8.6-10.3); Creatinine, Serum 1.31 mg/dL (0.67-1.17); Globulin 1.4 g/dL (2-4); Potassium 4.3 mmol/L (3.5-5.0); Total Bilirubin 0.7 mg/dL (0.2-1.0); Total Protein 3.7 g/dL (6.4-8.9); eGFR CKD-EPI 55.7 (>60)
[2023-07-08] MEDS ORDERED: Albuterol/Ipratropium NEB.SOL (2.5/0.5 MG) 3 ML NEB.SOLN INH PRN (19:00)
[2023-07-09 05:38] VITALS: BP 135/78
[2023-07-09] MEDS: Iodixanol (CONTRAST) 320 MG/ML 100 ML SDV IV ONE (08:41)
== END 2023-07-09 10:50 | disposition hospice, home (50) ==
LOC: EDHOLD 10:26 → ED 10:26 → SUATTDRO 16:04 → MED 20:14
PROVIDERS: ADMIT Hospitalist; ATTEND Student in an Organized Health Care Education/Training Program